=== PATIENT | female | born 1935 | race Caucasian/White ===

== ENCOUNTER 2018-08-11 16:28 | Observation (INO) | payer OTHER ==
--- OUTSIDE RECORDS SUMMARY | 2018-08-11 16:30 | XMS REPORT | Continuity of Care Document ---
:1935 Author Organization Interface Problems Problem Status Onset Classification Date Comments Source Date Reported I67.1 - CEREBRAL Active 02/22/19 [facility] ANEURYSM, 18 [place] NONRUPTURED I67.1 - Active 12/22/19 [facility] "CEREBRAL 16 [place] ANEURYSM, NONRUPTURED" Aneurysm Resolved Problem 05/29/2018 [facility] Bronchitis Resolved Problem 05/29/2018 [facility] Dizziness Resolved Problem 05/29/2018 [facility] Falling Resolved Problem 05/29/2018 [facility] Subarachnoid Resolved Problem 05/29/2018 [facility] hemorrhage [facility] Hypothyroid Resolved Problem 05/29/2018 [facility] Cerebral Active Problem 05/29/2018 [facility] aneurysm [facility] Lower back pain Resolved Problem 05/29/2018 [facility] Lumbar Resolved Problem 05/29/2018 [facility] radiculopathy [facility] 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 [facility] Medications Medication Details Route Status Patient Ordering Order Source Instructions Provider Date Allergies, Adverse Reactions, Alerts Substance Category Reaction Severity Reaction Status Date Comments Source type Reported phenytoin Assertion Drug Active [facility] Immunizations Immunization Date Given Site Status Last Updated Comments Source Results Order Results Value Reference Date Interpretation Comments Source Name Range Brain/ Brain/Ne Patient Name: DIONTE MASTERSON 03/12 - [facility] Neck ck CTA /2017 - [place] CTA : 1935; Age: 82 years y/o Female MR: [id number] Read by: Andrew Mclean MD Dictated Date/time: 03/12/17 11:02 Electronically Signed by: Andrew Mclean MD 03/12/17 11:17 FINAL REPORT Study: Brain/Neck CTA 03/12/2017 9:55 AM [facility] Clinical Indication: - SCHEDULE CTA BRAIN/NECK PRIOR TO MARCH 19, 2017; history of prior aneurysm repair Comparison: CTA of the head from 01/05/2016. CTA of the head and neck from 07/12/2015. TECHNIQUE: Sequential trans-axial images of the head and neck were obtained with a multi-detector helical CT after iodinated contrast administration. Coronal and sagittal reconstructions and were obtain ed, along with 3D post-processing imaging for exam interpretation. CONTRAST: 100 cc of IV Omnipaque contrast material was used for the exam. CT Radiation Dose DLP 1591.90 mGy-cm FINDINGS: CTA NECK: VASCULAR EVALUATION: The origins of the great vessels and visualized upper thoracic aortic arch are unremarkable. The common carotid arteries are widely patent bilaterally. There is minimal atherosclerotic disease of the bilateral carotid bulbs. The internal and external carotid artery origins are widely patent. Th e cervical internal carotid arteries are widely patent. There is no significant stenosis by NASCET criteria. Bilateral cervical segments of the vertebral arteries are widely patent. The source images show no evidence of dissections. Any reported ICA stenosis directly references the distal internal carotid diameter as the denominator for stenosis measurement. NON-VASCULAR STRUCTURES: Degenerative changes of the cervical spine are seen. IMPRESSION: Minimal atherosclerotic disease of the bilateral carotid bulbs. No significant stenosis by NASCET criteria. FINDINGS: CTA HEAD ANTERIOR CIRCULATION: There is only mild atherosclerotic disease of the supraclinoid portions of the bilateral internal carotid arteries. Stable changes of right frontal craniotomy and aneurysm clipping along the right pericallosal branch of the right KENY is seen. There is normal opacification of the vessel distal to the aneurysm clip. No residual or recurrent aneurysm at the site of clipping is seen. 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 The M1 and M2 segments of the middle cerebral arteries and branches are unremarkable. The anterior communicating artery is unremarkable. The posterior communicating arteries are also unremarkable. POSTERIOR CIRCULATION: Bilateral vertebral arteries, basilar artery, superior cerebellar and posterior cerebral arteries are unremarkable. The anterior inferior cerebellar arteries and left posterior inferior cerebellar artery are unremarkable. There is no significant atherosclerotic disease. NON-CONTRAST BRAIN IMAGES: The noncontrast images of the head show no mass- effect or midline shift. There are no intra or extra-axial fluid collections, intraventricular or intraparenchymal hemorrhages. The ventricles and cisterns are normal. Stable changes of right frontal craniotomy and KENY aneurysm clipping are again seen. Bifrontal encephalomalacia is again noted. Chronic microvascular ischemic ch anges are identified. 18 mm intraparenchymal hyperdense lesion in the right frontal lobe is stable. CONTRAST ENHANCED BRAIN IMAGES: The contrast-enhanced images of the head show no abnormally enhancing lesions. If there is further concern, recommend conventional angiography for complete assessment. IMPRESSION: 1. Stable changes of right frontal craniotomy and right KENY aneurysm clipping without residual or recurrent aneurysm. 2. 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 SL: [id number] Brain/ Brain/Ne EXAM: CTA BRAIN 07/11 - [facility] Neck ck CTA /2015 - [place] CTA EXAM: CTA NECK Read by: Ariadna Solano MD Dictated Date/time: 07/15/15 09:10 EXAM: Noncontrast CT brain Electronically Signed by: Ariadna Solano MD 07/15/15 09:32 FINAL REPORT DATE: 07/05/2015 3:53 PM CDT INDICATION: I67.1 Cerebral aneurysm, nonruptured COMPARISON: Outside CT brain 06/30/2015, 11/16/2011. TECHNIQUE: Rapid acquisition spiral CT images of the brain and neck were obtained between the aortic arch and the cranial vertex during intravenous infusion of iodinated contrast for the purposes of CT angiography . 3-D CT angiographic images are created using MIP technique at the acquisition workstation. The source images are also presented for interpretation. 100 mL Visipaque was used. DISCUSSION: Noncontrast CT brain: Aneurysm clipping along the course of the ACAs is redemonstrated. Ovoid hyperdensity in the right anterior frontal lobe within the area of encephalomalacia measuring 1.3 cm in diameter is redemonstrated , increased compared to 2011. No acute intracranial hemorrhage. Microangiopathic changes and generalized parenchymal volume loss are redemonstrated. No mass effect. No acute infarction. Remote right frontal craniotomy changes are redemonstrated. Paranasal sinuses and mastoid air cells are clear. NECK CTA: Common carotid arteries are unremarkable. Carotid bifurcations show no stenosis. Narrowing of the vertebral arteries at the level of C5 secondary to osteophyte. Otherwise, vertebral arteries have a normal course and caliber. BRAIN CTA: Aneurysm clipping along the right pericallosal branch is evident without residual or recurrent aneurysm identified at this site. Normal opacification of the vessel distal to the clip. Fusiform aneurysma l dilatation of a right callosomarginal branch measuring a maximal diameter of 6 mm and extending for a length of approximately 16 mm corresponding to the area of increased density on the noncontrast CT. Right PICA is not well visualized. Otherwise, no proximal occlusion or flow -limiting stenosis is identified intracranially. IMPRESSION: 1. No residual or recurrent aneurysm at the site of right KENY aneurysm clipping. 2. 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 3. Atherosclerosis at the carotid bifurcations without significant stenosis by NASCET criteria. 4. Microangiopathic changes and generalized parenchymal volume loss are redemonstrated. No acute intracranial hemorrhage. (All qualitative and quantitative assessments of carotid bifurcation and proximal internal carotid artery stenosis are made referencing the distal internal carotid artery {NASCET criteria}.) Vital Signs Vital Sign Value Date Comments Source Heart Rate 59 03/19/2017 [facility] Temperature Oral (F) 97 F 03/19/2017 [facility] Systolic (mm Hg) 157 03/19/2017 [facility] Diastolic (mm Hg) 81 03/19/2017 [facility] Weight 73.636 03/19/2017 [facility] BMI Calculated 30.67 03/19/2017 [facility] Height 154.94 cm 03/19/2017 [facility] Encounters Location Location Encounter Encounter Reason Attending ADM DC Status Source Details Type Number For Provider Date Date Visit Outpatient [id number] [facility] 07/04 [facility] [place] Outpatient [id number] [facility] 07/11 [facility] [place] Outpatient [id number] [facility] 07/11 [facility] [place] [facility] Out[facility] Diag [id number] [facility] 07/11 07/12 [facility] Outpatient [id number] AS[facility] 03/27 [facility] [facility] [id number] MICHAEL 03/07 [facility] [place] Out[facility] [id number] MICHAEL 03/07 [facility] [place] Outpatient [id number] AS[facility] 03/19 [facility] [place] [facility] Outpatient [id number] Michael 03/19 03/20 [facility] [id number] MICHAEL 11/14 [facility] Outpatient [id number] ASIF 05/27 [facility] Ambulatory [id number] Michael 05/27 05/27 [facility] Outpatient [id number] MICHAEL 11/11 Active [facility] Procedures Procedure Code Date Perfomer Comments Source Acid reflux [id number] [facility] Cataracts [id number] [facility] Craniotomy [id number] [facility] Cystocele [id number] [facility] H/O: hysterectomy [id number] [facility] Hip replacement [id number] [facility] Hx of knee surgery [id number] [facility] Acid reflux [id number] [facility] Cataracts [id number] [facility] Craniotomy [id number] [facility] Cystocele [id number] [facility] H/O: hysterectomy [id number] [facility] Hip replacement [id number] [facility] Hx of knee surgery [id number] [facility]
--- OUTSIDE RECORDS SUMMARY | 2018-08-11 16:30 | XMS REPORT | Summary of Care ---
:1935 Author Organization [facility] [place] [facility] [address] [place] [address] [place] [id number]- Encounter HQ Sindhuntr_kaylyn(FIN) [id number] Date(s): 05/27/18 - 05/27/18 [facility] [address] [place] [address] [place] [id number]- Attending Physician: Seng Burleson MD Referring Physician: Sammy Balbuena MD Vital Signs No data available for this section Problem List Condition Effective Dates Status Health Status Informant Aneurysm(Confirmed) Resolved Bronchitis(Confirmed) Resolved Dizziness(Confirmed) Resolved Falling(Confirmed) Resolved Subarachnoid hemorrhage(Confirmed) Resolved Hypothyroid(Confirmed) Resolved Cerebral aneurysm(Confirmed) Active Lower back pain(Confirmed) Resolved Lumbar radiculopathy(Confirmed) Resolved Postherpetic neuralgia(Confirmed) Active Allergies, Adverse Reactions, Alerts Substance Reaction Severity Status phenytoin Active Medications No data available for this section Results No data available for this section Immunizations No data available for this section Procedures Procedure Date Related Diagnosis Body Site Status Acid reflux Completed Cataracts Completed Craniotomy Completed Cystocele Completed H/O: hysterectomy Completed Hip replacement Completed Hx of knee surgery Completed Social History Social History Type Response Smoking Status Never smoker; Type: Cigarettes; Previous treatment: None; Ready to change: No; Concerns about tobacco use in household: No; Exposure to Tobacco Smoke None; Cigarette Smoking Last 365 Days No; Reg Smoking Cessation Counseling No entered on: 11/14/17 Assessment and Plan No data available for this section
[2018-08-11 17:04] LABS: Urine Blood TRACE (NEG); Urine Glucose NEGATIVE (NEG); Urine Protein NEGATIVE (NEG); Urine Specific Gravity 1.015 (1.005-1.030); Urine pH 8.5 (5.0-7.0)
[2018-08-11 17:16] LABS: Absolute Lymphocytes (CBC) 1.5 K/uL (0.7-4.9); Basophils % 0.8 % (0-1.3); Eosinophils % 3.5 % (0-4.4); Hematocrit 43.5 % (36.0-45.0); Lymphocytes % 29.4 % (15.3-44.8); MPV 9.9 fL (7.6-11.3); Monocytes % 10.6 % (3.3-12.3); RBC Red Blood Cell Count 4.58 M/uL (3.86-4.86)
[2018-08-11 17:25] LABS: Urine Bacteria >50 /HPF (<20); Urine Culture Reflex Order REFLEXED; Urine RBC <5 /HPF (NONE SEEN)
[2018-08-11 17:29] LABS: Potassium 3.7 mmol/L (3.5-5.1)
--- NOTE | 2018-08-11 17:41 | RAD REPORT ---
EXAM DESCRIPTION: CT - Head Brain Wo Cont - 08/11/2018 5:21 pm CLINICAL HISTORY: Stroke-like symptoms, left arm and leg weakness, history of cerebral aneurysm COMPARISON: CT imaging December 2015, June 2015 and October 2011 TECHNIQUE: Axial 5 mm thick images of the head were obtained without IV contrast. All CT scans are performed using dose optimization technique as appropriate and may include automated exposure control or mA/KV adjustment according to patient size. FINDINGS: No acute intracranial hemorrhage. Underlying moderate severity chronic ischemic changes ar e present. Prominent atrophy changes are present. Ventricles are in proportion to the amount of volum e loss. No midline shift. Aneurysm clips are again noted in the anterior interhemispheric region. In the anterior superior right frontal lobe there is a 2.6 centimeter rounded mass. This is in close pro ximity to the aneurysm clips. The mass is superior and to the right of midline. Prior diagnostic work ups indicate this is a partially thrombosed aneurysm. The mass enhances similar to the arterial tree in there is a large vessel associated with this mass on prior imaging. Since 2016 the mass has enlarg ed. The mass is 2.6 cm currently with a 1.6 centimeter prior measurement. The hyperintensity along th e periphery is believed to be mineralization. An acute hemorrhagic component is not suspected. Mastoid air cells and visualized portions of the paranasal sinuses are clear. No acute bony findings. IMPRESSION: A 2.6 centimeter mass in the right frontal lobe is present. The mass has enlarged from 1 .6 cm in 2016. Mass has previously been shown to be a partially thrombosed aneurysm. Acute hemorrhage from the aneu rysm is not currently suspected. Patient has moderate chronic ischemic change and advanced atrophy. Ventricles are in proportion to vo lume loss.
[2018-08-11] MEDS ORDERED: CEFTRIAXONE 1 GM/NS 50 ML 1 GM/50 ML BAG IV SCH (18:00)
--- NOTE | 2018-08-11 18:23 | P.HP ---
Certification for Inpatient Patient admitted to: Inpatient With expected LOS: >2 Midnights Practitioner: I am a practitioner with admitting privileges, knowledge of patient current condition, hospital course, and medical plan of care. Services: Services provided to patient in accordance with Admission requirements found in Title 42 Section 412.3 of the Code of Federal Regulations Patient History Date of Service: 08/11/18 Reason for admission: Left sided weakness History of Present Illness: This is a 83 yr old female with pmh of HTN, brain aneursym who presented with left sided weakness. Per patient, symptoms of left sided upper and lower extrmeity weakness started this afternoon and had resolved prior to coming to the ER. patient thought she may be having a mini stroke and therefore came to the ED. Patient has no prior CVA history but does have a history of brain aneursym. In the ER, she was hemodynamically stable, back to baseline and in no acute distress. CT scan of the head showed brain aneurysm had enlarged from 2016. Labs were fairly unremarkable. UA was positive for 3+ leukocyte esterase. She received IV antibiotics in the ED for suspected UTI. At the time of my exam, she was AAOx3, in no acute distress, hemodynamically stable and back to baseline. Allergies phenytoin sodium [From Dilantin] Allergy (Verified 12/02/17 10:19) Anaphylaxis phenytoin sodium extended [From Dilantin] Allergy (Verified 12/02/17 10:19) Anaphylaxis Home Medications: Atenolol [Tenormin*] 50 mg PO DAILY 03/10/14 Levothyroxine Sodium [Synthroid] 25 mcg PO DAILY 03/10/14 Aspirin [Adult Aspirin] 1 tab PO DAILY 12/02/17 Gabapentin 1 tab PO QID 12/02/17 - Past Medical/Surgical History Diabetic: No -: Brain aneurysm -: Hypothyroidism -: COPD -: History of ruptured brain aneurysm -: Hysterectomy -: Tonsillectomy -: Bilateral knee surgery -: Cystocele/rectocele -: R frontal crainiotomy with clipping of aneursym 1981 Psychosocial/ Personal History: She is . Her is currently in the senior care due to dementia. She has 2 children. 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 - Family History Mother -: Hypertension - Social History Alcohol use: No CD- Drugs: No Caffeine use: Yes Review of Systems 10-point ROS is otherwise unremarkable Physical Examination - Physical Exam General: Alert, In no apparent distress, Oriented x3 HEENT: Atraumatic, PERRLA, Mucous membr. moist/pink, EOMI, Sclerae nonicteric Neck: Supple, 2+ carotid pulse no bruit, No LAD, Without JVD or thyroid abnormality Respiratory: Clear to auscultation bilaterally, Normal air movement Cardiovascular: Regular rate/rhythm, Normal S1 S2 Gastrointestinal: Normal bowel sounds, No tenderness Musculoskeletal: No tenderness Integumentary: No rashes Neurological: Normal gait, Normal speech, Normal strength at 5/5 x4 extr, Normal tone, Normal affect Lymphatics: No axilla or inguinal lymphadenopathy - Studies Laboratory Data (last 24 hrs) 08/11/18 17:08: Sodium 139, Potassium 3.7, BUN 12, Creatinine 0.77, Glucose 97 08/11/18 17:08: WBC 5.0, Hgb 14.2, Hct 43.5, Plt Count 178 Assessment and Plan - Problems (Diagnosis) (1) Left-sided weakness Current Visit: Yes Status: Acute Plan: DDx include TIA vs aneursym enlargement vs infectious - Dr. Balbuena, patient's primary neurologist consulted. Awaiting recomendations at this time. - Unable to do MRI due to aneursym clippings - CTA of head and neck ordered, pending. - Tele monitoring (2) TIA (transient ischemic attack) Current Visit: Yes Status: Suspected (3) Urinary tract infection Current Visit: Yes Status: Suspected Plan: Continue antibiotics, pending urine culture Qualifiers: Urinary tract infection type: acute cystitis Hematuria presence: without hematuria Qualified Code(s): N30.00 - Acute cystitis without hematuria (4) Brain aneurysm Current Visit: No Status: Chronic Plan: Aneurysm seems to have enlarged from prior imaging. Pending neurology evaluation. (5) COPD (chronic obstructive pulmonary disease) Current Visit: No Status: Chronic Plan: Continue home medications Qualifiers: COPD type: chronic bronchitis Chronic bronchitis type: unspecified Qualified Code(s): J42 - Unspecified chronic bronchitis (6) Hypertension Current Visit: No Status: Chronic Plan: stable, continue home medications. Strict BP monitoring Qualifiers: Hypertension type: essential hypertension Qualified Code(s): I10 - Essential (primary) hypertension (7) Hypothyroidism Current Visit: No Status: Chronic Plan: Stable, restart home medications. Qualifiers: - Plan Admit to floor with tele. Pending Neurology evaluation and CTA head/neck - Advance Directives Does patient have a Living Will: Yes Does patient have a Durable POA for Healthcare: No
--- NOTE | 2018-08-11 18:25 | ER ---
Nurse's Notes [facility] Name: Radha Parada Age: 83 yrs Sex: Female : 1935 Arrival Date: 08/11/2018 Time: 16:30 Bed 8 Private MD: Diagnosis: Weakness;Urinary tract infection, site not specified;Cerebral aneurysm, nonruptured Presentation: 08/11 16:30 Presenting complaint: Patient states: around 12:30 noon today, i felt weak on my L leg hj and L arm, im afraid im having mini stroke; reports hx of cerebral aneurysm; denies N/V; on triage no drift on all extremities, A\T\O x 4, no facial droop;. Transition of care: patient was not received from another setting of care. Onset of symptoms was August 11, 2018 at 12:30. Risk Assessment: Do you want to hurt yourself or someone else? Patient reports no desire to harm self or others. Initial Sepsis Screen: Does the patient meet any 2 criteria? No. Patient's initial sepsis screen is negative. Does the patient have a suspected source of infection? No. Patient's initial sepsis screen is negative. Care prior to arrival: None. 16:30 Method Of Arrival: Ambulatory 16:30 Acuity: DEBORAH 3 hj Historical: - Allergies: 16:34 Dilantin; hj - PMHx: 16:34 Aneurysm; hj - PSHx: 16:34 Hysterectomy; aneursym surgery; reflux surgery; hip replacement; hj - Immunization history:: Adult Immunizations up to date. - Social history:: Smoking status: Patient/guardian denies using tobacco. - Ebola Screening: : No symptoms or risks identified at this time. - Family history:: not pertinent. - Hospitalizations: : No recent hospitalization is reported. Screenin:00 Abuse screen: Denies threats or abuse. Denies injuries from another. Nutritional hb screening: No deficits noted. Tuberculosis screening: No symptoms or risk factors identified. Fall Risk None identified. Assessment: 16:36 VAN Scoring: Arm Drift: Patients demonstrates NO arm weakness. Patient is VAN Negative. hj Visual Disturbance: No visual disturbance noted. Aphasia: No aphasia noted. Neglect: No neglect noted. 16:50 Reassessment: at bedside assessing pt at this time. sg 16:50 Reassessment: EKG at bedside at this time. sg 17:00 General: Appears in no apparent distress. Behavior is calm, cooperative. Pain: Denies hb pain. Neuro: Level of Consciousness is awake, alert, obeys commands, Oriented to person, place, time, situation, Filler Sifter Helper are equal bilaterally Moves all extremities. Gait is steady, Speech is normal, Facial symmetry appears normal, Pupils are PERRLA, Intact. Cardiovascular: Capillary refill < 3 seconds Patient's skin is warm and dry. Respiratory: Airway is patent Respiratory effort is even, unlabored, Respiratory pattern is regular, symmetrical, Breath sounds are clear bilaterally. GI: No signs and/or symptoms were reported involving the gastrointestinal system. : No signs and/or symptoms were reported regarding the genitourinary system. EENT: No signs and/or symptoms were reported regarding the EENT system. Derm: Skin is intact, is healthy with good turgor. Musculoskeletal: No signs and/or symptoms reported regarding the musculoskeletal system. 18:00 Reassessment: Patient appears in no apparent distress at this time. Patient and/or hb family updated on plan of care and expected duration. Pain level reassessed. Patient is alert, oriented x 3, equal unlabored respirations, skin warm/dry/pink. 19:00 Reassessment: Patient appears in no apparent distress at this time. Patient and/or hb family updated on plan of care and expected duration. Pain level reassessed. Patient is alert, oriented x 3, equal unlabored respirations, skin warm/dry/pink. 19:01 Reassessment: Attempted to call report to floor, no answer. Day charge nurse Krysta COLE and night charge nurse KELSEY notified. 19:19 Reassessment: Attempted to call report to floor, receiving nurse unavailable at this time. Vital Signs: 16:35 BP 151 / 60; Pulse 55; Resp 18; Temp 98.5(O); Pulse Ox 98% on R/A; Weight 68.04 kg; hj Height 5 ft. 1 in. (154.94 cm); Pain 0/10; 18:30 BP 148 / 59; Pulse 63; Resp 16; Temp 98.1; Pulse Ox 100% on R/A; Pain 0/10; hb 16:35 Body Mass Index 28.34 (68.04 kg, 154.94 cm) ED Course: 16:30 Patient arrived in ED. mr 16:33 Triage completed. hj 16:36 Arm band placed on right wrist. hj 16:39 Marc Foster MD is Attending Physician. rn 16:57 Indigo Underwood, RN is Primary Nurse. hb 17:00 Patient has correct armband on for positive identification. Placed in gown. Bed in low hb position. Call light in reach. Side rails up X 1. 17:06 EKG done, by environmental technical officer. reviewed by Marc Foster MD. 3 17:12 Inserted saline lock: 20 gauge in right antecubital area, using aseptic technique. hb Blood collected. 17:21 CT Head Brain wo Cont In Process Unspecified. EDMS 18:06 CT completed. Patient tolerated procedure well. Patient moved to CT. Patient moved back va from CT. 18:23 Daryl Thrasher MD is Hospitalizing Provider. rn 19:15 No provider procedures requiring assistance completed. Patient admitted, IV remains in hb place. Administered Medications: 18:53 Drug: Rocephin - (cefTRIAXone) 1 grams Route: IVPB; Infused Over: 30 mins; Site: right hb antecubital; 19:16 Follow up: Response: No adverse reaction; IV Intake: 50ml hb 19:34 Follow up: IV Status: Completed infusion ak1 Intake: 19:16 IV: 50ml; Total: 50ml. hb Outcome: 18:24 Decision to Hospitalize by Provider. rn 19:15 Admitted to Tele hb 19:15 Condition: stable 19:15 Instructed on the need for admit, Demonstrated understanding of instructions. 19:33 Admitted to Tele accompanied by tech, via stretcher, room 214, with chart, Report ak1 called to Tamara COLE 19:54 Patient left the ED. ak1 Signatures: Dispatcher [employer] EDMS Derrick Madrid RN KELSEY sullivan SamuelRocio mr Marc Foster MD MD rn Krenek, Amber, RN RN ak1 Dav Wing RN RN hj Baxter, Heather, RN John Dinh Shakira 3
--- NOTE | 2018-08-11 18:25 | EDPHYS ---
Physician Documentation [facility] Name: Radha Parada Age: 83 yrs Sex: Female : 1935 Arrival Date: 08/11/2018 Time: 16:30 Bed 8 Private MD: ED Physician Marc Foster HPI: 08/11 18:19 This 83 yrs old Female presents to ER via Ambulatory with complaints of rn Weakness. 18:19 The patient presents to the emergency department with weakness of the left upper rn extremity, left lower extremity. Onset: The symptoms/episode began/occurred at 12:30. Associated signs and symptoms: Pertinent positives: weakness, Pertinent negatives: altered mental status, fever, paresthesias, seizure, syncope, blurred vision, double vision, visual field changes, loss of vision. Severity of symptoms: At their worst the symptoms were moderate in the emergency department the symptoms have improved. Current symptoms: Currently, the patient is not experiencing any symptoms. The patient has not experienced similar symptoms in the past. REports around 12:30 today didn't feel right, noted LUE and LLE weakness, trouble walking, has now resolved, also reports generalized weakness and fatigue. No headache. No head trauma. . Historical: - Allergies: 16:34 Dilantin; hj - PMHx: 16:34 Aneurysm; hj - PSHx: 16:34 Hysterectomy; aneursym surgery; reflux surgery; hip replacement; hj - Immunization history:: Adult Immunizations up to date. - Social history:: Smoking status: Patient/guardian denies using tobacco. - Ebola Screening: : No symptoms or risks identified at this time. - Family history:: not pertinent. - Hospitalizations: : No recent hospitalization is reported. ROS: 18:19 Constitutional: Negative for fever, chills, and weight loss, Eyes: Negative for injury, rn pain, redness, and discharge, Neck: Negative for injury, pain, and swelling, Cardiovascular: Negative for chest pain, palpitations, and edema, Respiratory: Negative for shortness of breath, cough, wheezing, and pleuritic chest pain, Abdomen/GI: Negative for abdominal pain, nausea, vomiting, diarrhea, and constipation, MS/Extremity: Negative for injury and deformity, Skin: Negative for injury, rash, and discoloration, Neuro: + LUE/LLE weakness, negative for seizure or paresthesias. Exam: 18:19 Constitutional: This is a well developed, well nourished patient who is awake, alert, rn and in no acute distress. Head/Face: Normocephalic, atraumatic. ENT: MMM Cardiovascular: Regular rate and rhythm. No pulse deficits. Respiratory: Lungs have equal breath sounds bilaterally, clear to auscultation. No increased work of breathing, no retractions or nasal flaring. Abdomen/GI: soft, non-tender Skin: Warm, dry with normal turgor. Normal color with no rashes, no lesions, and no evidence of cellulitis. MS/ Extremity: Pulses equal, no cyanosis. Neurovascular intact. Full, normal range of motion. Equal circumference. Neuro: Awake and alert, GCS 15, oriented to person, place, time, and situation. Cranial nerves II-XII grossly intact. Motor strength 5/5 in all extremities. Sensory grossly intact. Cerebellar exam normal. Normal gait. Vital Signs: 16:35 BP 151 / 60; Pulse 55; Resp 18; Temp 98.5(O); Pulse Ox 98% on R/A; Weight 68.04 kg; hj Height 5 ft. 1 in. (154.94 cm); Pain 0/10; 18:30 BP 148 / 59; Pulse 63; Resp 16; Temp 98.1; Pulse Ox 100% on R/A; Pain 0/10; hb 16:35 Body Mass Index 28.34 (68.04 kg, 154.94 cm) hj MDM: 16:39 Patient medically screened. rn 18:19 Data reviewed: vital signs, nurses notes, lab test result(s), EKG, radiologic studies, rn CT scan, and as a result, I will admit patient. Counseling: I had a detailed discussion with the patient and/or guardian regarding: the historical points, exam findings, and any diagnostic results supporting the discharge/admit diagnosis, lab results, radiology results, the need for further work-up and treatment in the hospital. Response to treatment: the patient's symptoms have markedly improved after treatment, and as a result, I will admit patient. Admission orders: after a detailed discussion of the patient's condition and case, the admit orders are written by me. ED course: Pt with UTI likely contributing to not feeling right and generalized weakness, slight increase in aneurysm without bleeding, spoke with Dr. Balbuena who agrees to see patient as consult, admitted to Dr. Thrasher. Pending CTA head and neck. . 08/11 16:44 Order name: CBC with Diff; Complete Time: 17:46 rn 08/11 16:44 Order name: Basic Metabolic Panel; Complete Time: 17:46 rn 08/11 16:44 Order name: Urine Microscopic Only; Complete Time: 17:46 rn 08/11 16:56 Order name: Urine Dipstick--Ancillary (enter results); Complete Time: 17:46 bd 08/11 17:28 Order name: Urine Culture [facility] 08/11 16:44 Order name: CT Head Brain wo Cont; Complete Time: 17:46 rn 08/11 16:44 Order name: IV Start; Complete Time: 17:05 rn 08/11 16:44 Order name: Urine Dipstick-Ancillary (obtain specimen); Complete Time: 16:57 rn 08/11 16:44 Order name: EKG; Complete Time: 16:45 rn 08/11 17:49 Order name: CT Head Angio 08/11 17:49 Order name: CT Neck Angio 08/11 18:13 Order name: CONS Physician Consult [facility] 08/11 16:44 Order name: EKG - Nurse/Tech; Complete Time: 17:05 rn Administered Medications: 18:53 Drug: Rocephin - (cefTRIAXone) 1 grams Route: IVPB; Infused Over: 30 mins; Site: right hb antecubital; 19:16 Follow up: Response: No adverse reaction; IV Intake: 50ml hb 19:34 Follow up: IV Status: Completed infusion ak1 Disposition: 08/11/18 18:24 Hospitalization ordered by Daryl Thrasher for Inpatient Admission. Preliminary diagnosis are Weakness, Urinary tract infection, site not specified, Cerebral aneurysm, nonruptured. - Bed requested for Telemetry/MedSurg (Inpatient). - Status is Inpatient Admission. ak1 - Condition is Stable. - Problem is new. - Symptoms have improved. UTI on Admission? Yes Signatures: Dispatcher [employer] [facility] Farida Norton RN RN dw Nieto, Roman, MD MD rn Krenek, Amber, RN RN ak1 Dav Wing RN RN Indigo Underwood RN RN Corrections: (The following items were deleted from the chart) 18:14 17:50 Urine Culture+BA.LAB.BRZ ordered. EDMS EDMS 18:35 18:24 Hospitalization Ordered by Daryl Thrasher MD for Inpatient Admission. Preliminary dw diagnosis is Weakness; Urinary tract infection, site not specified; Cerebral aneurysm, nonruptured. Bed requested for Telemetry/MedSurg (Inpatient). Status is Inpatient Admission. Condition is Stable. Problem is new. Symptoms have improved. UTI on Admission? Yes. rn 19:54 18:35 08/11/2018 18:24 Hospitalization Ordered by Daryl Thrasher MD for Inpatient ak1 Admission. Preliminary diagnosis is Weakness; Urinary tract infection, site not specified; Cerebral aneurysm, nonruptured. Bed requested for Telemetry/MedSurg (Inpatient). Status is Inpatient Admission. Condition is Stable. Problem is new. Symptoms have improved. UTI on Admission? Yes. dw
[2018-08-11] MEDS ORDERED: CEFTRIAXONE/SWI 1gm 1 GM/10 ML SYR ONE (19:12)
[2018-08-11] MEDS ORDERED: ONDANSETRON 4 MG/2 ML VIAL IV PRN (20:12)
[2018-08-11 21:05] VITALS: BMI 28.3
[2018-08-12 05:58] LABS: Absolute Lymphocytes (CBC) 1.5 K/uL (0.7-4.9); Basophils % 0.8 % (0-1.3); Eosinophils % 4.2 % (0-4.4); Hematocrit 41.5 % (36.0-45.0); Lymphocytes % 27.3 % (15.3-44.8); MPV 10.5 fL (7.6-11.3); Monocytes % 14.7 % (3.3-12.3); RBC Red Blood Cell Count 4.41 M/uL (3.86-4.86)
[2018-08-12 06:18] LABS: Albumin 3.1 g/dL (3.4-5.0); Bilirubin Total 0.3 mg/dL (0.2-1.0); Magnesium 2.4 mg/dL (1.8-2.4); Phosphorus 4.2 mg/dL (2.5-4.9); Protein, Total 6.4 g/dL (6.4-8.2)
[2018-08-12] MEDS: CEFTRIAXONE/SWI 1gm 1 GM/10 ML SYR IVP SCH ×2 (06:23→17:18)
[2018-08-12] MEDS ORDERED: HOME MED 1 EA UNK (Budesonide/Formoterol Fumarate [Symbicort 160-4.5 Mcg Inhaler] 2 PUFF) IH SCH (10:20)
--- NOTE | 2018-08-12 12:07 | RAD REPORT ---
EXAM DESCRIPTION: CT - Head angio - 08/12/2018 1:19 am CLINICAL HISTORY: 83 years Female weakness, TIA COMPARISON: CT brain study from earlier in the day. No previous CTA or MRA studies are available for comparison. TECHNIQUE: Contiguous axial images obtained through the head and neck during the infusion of IV cont rast. Reformatted images obtained. 3-D MIP reformatted images obtained. NASCET criteria utilized fo r the evaluation of any stenotic lesions. This exam was performed according to our department optimization program which includes automated exp osure control, adjustment of the mA and/or kv according to patient size and/or use of iterative recon struction technique. FINDINGS: There are changes from previous right frontal craniotomy with aneurysm clips visualized al valentino the area of the genu of the corpus callosum. The mass lesion in the right frontal region was bett er visualized on the previous head CT study. Mild scarring at the lung apices. Degenerative changes in the spine. The aortic arch and great vessels are incompletely visualized. The visualized portions appear unremar kable. The bilateral vertebral arteries and basilar artery appear widely patent. A portion of the proximal right common carotid artery is not visualized secondary to artifact from ad jacent densely enhanced venous structures. The bilateral common and internal carotid arteries otherwi se appear widely patent. Within the area of the lesion visualized on the previous head CT study, there is an enlarged and some what irregular vascular structure which appears to extend from an occluded right pericallosal artery into a more distal right anterior cerebral artery branch. This likely represents a bypass graft. No d efinite aneurysm is identified. MRI may be helpful to further evaluate the lesion in the right fronta l lobe. IMPRESSION: There are changes from previous right frontal craniotomy with aneurysm clips visualized along the area of the genu of the corpus callosum. 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 There is an irregular vascul ar structure extending from the area of the occlusion to a more distal right anterior cerebral artery branch which likely represents a bypass graft. No definite aneurysm is identified on this study. MRI may be helpful to further evaluate the lesion in the right frontal lobe. Electronically signed by: Mike Arenas MD 08/11/2018 7:11 PM CDT Due to temporary technical issues with the PACS/Fluency reporting system, reports are being signed by the in house radiologist as a courtesy to ensure prompt reporting. The interpreting radiologist is f ully responsible for the content of the report.
--- NOTE | 2018-08-12 14:51 | EKG ---
Test Date: 2018-08-11 Test Time: 17:00:24 [employer] Mer[employer]: BRANDT MEASUREMENT RESULTS: Intervals: Rate: 57 ND: 222 QRSD: 78 QT: 408 QTc: 397 [place]: P: 61 ND: 222 QRS: 37 T: 46 INTERPRETIVE STATEMENTS: Sinus bradycardia with sinus arrhythmia with 1st degree AV block Cannot rule out Anterior infarct, age undetermined Abnormal ECG Compared to ECG 01/04/2016 11:51:29 First degree AV block now present Myocardial infarct finding now present Sinus rhythm no longer present Atrial premature complex(es) no longer present Electronically Signed On 08-12-18 14:47:32 CDT by Tani Ervin
[2018-08-12] MEDS ORDERED: GABAPENTIN 300 MG CAP PO SCH ×2 (17:00→21:00)
[2018-08-12 17:04] VITALS: BP 127/73; TEMP 97.7
--- NOTE | 2018-08-12 20:52 | P.DS ---
Discharge Date: 08/12/18 Disposition: DC HOME/HOME HEALTH CARE Discharge Condition: GOOD Reason for Admission: Left sided weakness Consultations: NEUROLOGY Brief History of Present Illness: PATIENT IS AN 83-YEAR-OLD FEMALE CAME INTO HOSPITAL WITH NUMBNESS ON 1 SIDE OF HER BODY. SHE WAS CONFUSED WELL. INITIALLY THEY WERE CONCERNED THAT SHE MAY HAVE HAD A STROKE. SHE WAS ADMITTED FOR FURTHER WORKUP. IN THE ER WORKUP REVEALED THAT SHE HAD A URINARY TRACT INFECTION. SHE WAS FELT TO HAVE ENCEPHALOPATHY. MRI WAS ORDERED FOR FURTHER WORKUP. Hospital Course: MRI DID NOT REVEAL ANY INDICATION OF AN ACUTE INFARCT. IT WAS FELT PATIENT NEUROLOGIC CHANGES WERE SECONDARY TO A URINARY TRACT INFECTION. SHE WAS SEEN BY NEUROLOGY. PATIENT WAS ADVISED TO FOLLOW UP AN OUTPATIENT WITH PCP IN 1- 2 WEEKS WELL A NEUROLOGIST IN 1-2 WEEKS. CONTINUE ANTIBIOTICS AT DISCHARGE. Vital Signs/Physical Exam: Temp Pulse Resp BP Pulse Ox 97.7 F 55 18 127/73 95 08/12/18 16:00 08/12/18 16:00 08/12/18 16:00 08/12/18 16:00 08/12/18 16:00 General: Alert, In no apparent distress, Oriented x3 Laboratory Data at Discharge: WBC 5.6 K/uL (4.3-10.9) 08/12/18 05:26 Hgb 13.8 g/dL (12.0-15.0) 08/12/18 05:26 Hct 41.5 % (36.0-45.0) 08/12/18 05:26 Plt Count 179 K/uL (152-406) 08/12/18 05:26 Sodium 140 mmol/L (136-145) 08/12/18 05:26 Potassium 4.0 mmol/L (3.5-5.1) 08/12/18 05:26 BUN 11 mg/dL (7-18) 08/12/18 05:26 Creatinine 0.77 mg/dL (0.55-1.3) 08/12/18 05:26 Glucose 89 mg/dL (74-106) 08/12/18 05:26 Phosphorus 4.2 mg/dL (2.5-4.9) 08/12/18 05:26 Magnesium 2.4 mg/dL (1.8-2.4) 08/12/18 05:26 Total Bilirubin 0.3 mg/dL (0.2-1.0) 08/12/18 05:26 AST 16 U/L (15-37) 08/12/18 05:26 ALT 17 U/L (12-78) 08/12/18 05:26 Alkaline Phosphatase 68 U/L (45-117) 08/12/18 05:26 Triglycerides 113 mg/dL (<150) 08/12/18 05:26 Cholesterol 160 mg/dL (<200) 08/12/18 05:26 HDL Cholesterol 48 mg/dL (40-60) 08/12/18 05:26 Cholesterol/HDL Ratio 3.33 08/12/18 05:26 Home Medications: Atenolol [Tenormin*] 50 mg PO DAILY 08/13/18 Gabapentin 300 mg PO DAILY 08/13/18 Montelukast [Singulair*] 10 mg PO DAILY 08/13/18 Meropenem [Merrem 500 MG/100 ML NS IVPB] 500 mg IV Q8H 14 Days #1 bag 08/14/18 Patient Discharge Instructions: OK TO DC IV AND DC HOME. FOLLOW-UP WITH DR. RAYA IN 1-2 WEESK. FOLLOW-UP WITH NEUROLOGY IN 1-[address] SHERMAN AT IF ANY QUESTIONS REGARDING HOSPITAL STAY- PLEASE PLEASE CALL IN 24- 48 HOURS TO GO OVER CULTURE RESULTS. RETURN TO THE ER IF SYMPTOMS WORSESN. URINE CULTURES SHOULD BE BACK IN 48-72 HOURS SO PLEASE CONTACT YOUR PCP OR DR. SHERMAN TO CODIE CULTURE RESULTS AT THAT TIME TO MAKE SURE APPROPRIATE ANTIBIOTICS ARE BEING USED Diet: AHA Activity: Fall precautions Followup: Andrew Raya MD [Primary Care Provider] - (FOLLOW UP 1-2 WEEKS) Sammy Balbuena MD [ACTIVE - CAN ADMIT] - (Follow up in 1 month ) Time spent managing pt's care (in minutes): 25
[2018-08-12 21:29] VITALS: O2SAT 96
--- NOTE | 2018-08-13 01:19 | CON ---
Date of Consultation: 08/12/2018 Reason: Possible TIA. 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 It was imaged several times here and in [place], is actually found to be smaller on s erial imaging and no intervention was really recommended from Neurosurgery at that point to the right callosal marginal branch. Yesterday, she had an episode where she felt a little off and then she hanson d some clumsiness and weakness of the left leg. She fell at home, [facility] demonstrated the hyperintensity in the medial right frontal lobe, which is not aneurysmal and it has been there for quite some time, it is marginally bigger. There is a vessel that arches ar ound the right frontal lobe lesion, possibly making it look a little larger than it actually is, so i t was all very concerning, the new neurologic symptoms, the hyperintensity with history of aneurysm, so she was admitted overnight. Since being admitted, she had a CT angiogram that does not really def initively demonstrate any new finding. Pericallosal artery is occluded from the clip. There is a va scular structure, which I think is the fusiform aneurysm proper, and as noted, no intervention has be en recommended with regard to that abnormality. She is back to baseline. She was felt to have a UTI as well. Labs reveal no real abnormality other than the UTI. LDL is 89. The patient is 83 years o ld. Consult was requested. Past Medical History: As alluded to hypothyroidism as well as hypertension. Medications: Aspirin, atenolol, gabapentin, Synthroid, Singulair, Zofran. Allergies: DILANTIN. Social History: Never smoked. Normally independent with activities of daily living. Family History: Noncontributory. Review of Systems: General: Good health. Eyes: Negative. Ears, Nose, Throat: No speech difficulties. Cardiovascular: Hypertension. Pulmonary: Negative. GI: Negative. : UTI. Musculoskeletal: As alluded to. Neurologic: Leg weakness, now resolved. Endocrine: Hypothyroidism. Physical Examination: Vital Signs: 97.7, 55, 18, 127/73. General: A pleasant lady, lying in bed, in no distress. Awake, alert, oriented to time, person, tere ce, and situation. HEENT: Pupils equal, round, reactive. Ocular motion full without nystagmus. Visual kelley full. F acial strength and sensation are normal. Tongue protrudes evenly. Soft palate elevates symmetricall y bilaterally. Extremities: Strength full. Sensation intact. Reflexes 2/4 symmetric. Toes are downgoing. Cerebe llar exam demonstrates no ataxia. Pertinent Labs: CT angio demonstrates patent carotids as well. Impression: 1.Possible transient ischemic attack. 2.Prior aneurysm with residual fusiform aneurysm, possibly being interpreted as the bypass graft on the CTA. Plan: I would not make any significant medication changes. LDL is greater than 70, but the patient is over 75, and it is not certainly classic transient ischemic attack type history. It may all just be related to the urinary tract infection. I think she is safe to be discharged and I do not even kn ow that I would continue to repeat the imaging to monitor generating a significant amount of anxiety, and there is no real intervention for a fusiform aneurysm proper other than medical management. She can follow up with me in the office in a month. Thank you for the consult. DONG Voice ID: [id number] Report ID: [id number]
--- NOTE | 2018-08-13 01:54 | DS ---
Date of Discharge: 08/12/2018 Discharge Diagnoses: 1.Left-sided weakness, resolved. 2.TIA. 3.Acute cystitis without hematuria secondary to gram-negative rods. 4.Brain aneurysm, status post clipping. Per CT scan, aneurysm has enlarged by 1 cm. No acute throm bosis. 5.COPD, chronic bronchitis. 6.Essential hypertension, stable. 7.Hypothyroidism. Hospital Course: The patient is an 83-year-old female with past medical history of hypertension, bra in aneurysm with clipping, comes in with left-sided weakness. The patient felt that she was having a mini-stroke, therefore came into the ER. CT scan of the brain was done, which showed aneurysm that is enlarged from 2016 by 1 cm for a total size of 2.6 cm. This is compared to 2016. She was found t o have UTI, which is being treated with Rocephin. Cultures are growing gram-negative rods. The carlos ent's symptoms had resolved. She was back to her baseline. The patient will be seen by Neurology, Daniel Balbuena. CTA of the head and neck was done, which shows no definite aneurysm on the study. MRI may be helpful to further evaluate lesion in the right frontal lobe. Changes from previous right fronta l craniotomy with aneurysm clips visualized along the area of the genu of the corpus callosum, occlus ion of the right pericallosal artery in the region, most likely related to the previous surgical proc edure, irregular vascular structures extending from the area of the occlusion to more distal right an terior cerebral artery branch which likely represents a bypass graft. Head CTA showed same results a s mentioned above. The patient is doing well. She was able to ambulate, working well with PT. The patient was then cleared for discharge and was sent home in a stable condition. Activity: Ambulate with assist. The patient uses a cane for ambulation. Medications: As per medication reconciliation list. Followup: Follow up with primary care physician in 2-3 days. Follow up with neurologist, Dr. Balbuena, in 2 weeks. Return to ER for worsening condition. Diet: Heart healthy. Physical Examination: General: Awake, alert, oriented x3, elderly female. CV: S1, S2. Respiratory: Moving air well bilaterally. Abdomen: Soft, nontender, nondistended. Positive bowel sounds. Extremities: No clubbing, cyanosis, or edema. Neuro: Nonfocal. Code Status: Full. SA/MODL Voice ID: [id number] Report ID: [id number]
[2018-08-13] MEDS ORDERED: LEVOTHYROXINE SOD 0.025 MG TAB PO SCH (06:30)
[2018-08-13] MEDS ORDERED: ATENOLOL 50 MG TAB PO SCH (09:00)
[2018-08-13] MEDS ORDERED: ASPIRIN EC 81 MG TAB PO SCH (09:00)
[2018-08-13] MEDS ORDERED: MONTELUKAST 10 MG TAB PO SCH (09:00)
[2018-08-13] MEDS ORDERED: GABAPENTIN 300 MG CAP PO SCH (09:00)
== END 2018-08-12 21:30 | disposition home health service (06) ==
LOC: ER 16:28 → INTOOBSV 18:11 → ERHOLD 18:11 → 2ND 19:08
PROVIDERS: ADMIT Family Medicine; ATTEND Family Medicine
DX: I67.1 Cerebral aneurysm, nonruptured (principal); R53.1 Weakness; N39.0 Urinary tract infection, site not specified; I10 Essential (primary) hypertension; E03.9 Hypothyroidism, unspecified; J44.9 Chronic obstructive pulmonary disease, unspecified; F03.90 Unspecified dementia, unspecified severity, without behavioral disturbance, psychotic disturbance, mood disturbance, and anxiety; Z79.82 Long term (current) use of aspirin; Z79.51 Long term (current) use of inhaled steroids; Z79.899 Other long term (current) drug therapy
CPT/HCPCS: 36415; 70450; 70496; 70498; 80048; 80053; 80061; 81003; 81015; 83735; 84100; 85025; 87077; 87086; 87088; 87186; 93005; 94760; 96365; 97163; 99285; G0378; J0696; J2405

== ENCOUNTER 2018-08-13 10:03 | Inpatient (IN) | payer OTHER ==
--- OUTSIDE RECORDS SUMMARY | 2018-08-13 11:49 | XMS REPORT | Continuity of Care Document ---
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 SL: [id number] Brain/ Brain/Ne EXAM: CTA BRAIN 07/11 - [facility] Neck ck CTA /2015 - [place] CTA EXAM: CTA NECK Read by: Ariadna [...] Date Comments Source Heart Rate 59 03/19/2017 [facility] Temperature Oral (F) 97 F 03/19/2017 [facility] Systolic (mm Hg) 157 03/19/2017 [facility] Diastolic (mm Hg) 81 03/19/2017 [facility] Weight 73.636 03/19/2017 [facility] BMI Calculated 30.67 03/19/2017 [facility] Height 154.94 cm 03/19/2017 [facility] Encounters Location Location Encounter Encounter Reason Attending ADM DC Status Source Details Type Number For Provider Date Date Visit Outpatient [id number] [facility] 07/04 [facility] [place] [facility] [id number] [facility] 07[facility]11 [facility] [place] [facility] [id number] [facility] 07/11 [facility] Di[facility] [id number] [facility] 07/11 07/12 [facility] Outpatient [id number] ASIF 03/27 [facility] [id number] MICHAEL 03/07 [facility] Out[facility] [id number] MICHAEL 03/07 [facility] [place] Outpatient [id number] ASIF 03/19 [facility] [place] [facility] Outpatient [id number] Michael 03/19 03/20 [facility] [id number] MICHAEL 11/14 [facility] Out[facility] [id number] ASIF 05/27 [facility] [facility] Ambulatory [id number] Michael 05/27 05/27 [facility]patient [id number] MICHAEL 11/11 Active [facility] Procedures Procedure Code Date Perfomer Comments Source Acid reflux [id number] [facility] [place] Cataracts [id number] [facility] [place] Craniotomy [id number] [facility] [place] Cystocele [id number] [facility] [place] H/O: hysterectomy [id number] [facility] [place] Hip replacement [id number] [facility] Hx of knee surgery [id number] [facility] [place] Acid reflux [id number] [facility] Cataracts [id number] [facility] Craniotomy [id number] [facility] Cystocele [id number] [facility] H/O: hysterectomy [id number] [facility] Hip replacement [id number] [facility] Hx of knee surgery [id number] [facility]
[2018-08-13] MEDS ORDERED: ACETAMINOPHEN 500 MG TAB PO PRN (12:08)
[2018-08-13] MEDS ORDERED: ONDANSETRON 4 MG/2 ML VIAL IV PRN (12:08)
[2018-08-13] MEDS ORDERED: Meropenem 500 MG VIAL IV SCH (12:08)
[2018-08-13] MEDS: Meropenem 500 MG in NA CHLORIDE 0.9% 100 ML IV SCH ×2 (13:31→16:47)
[2018-08-13] MEDS: NA CHLORIDE 0.9% 1,000 ML IV SCH (13:31)
[2018-08-13 14:00] VITALS: BMI 29.3
[2018-08-13 14:24] LABS: Absolute Lymphocytes (CBC) 1.5 K/uL (0.7-4.9); Basophils % 0.5 % (0-1.3); Eosinophils % 2.4 % (0-4.4); Hematocrit 40.7 % (36.0-45.0); Lymphocytes % 22.6 % (15.3-44.8); MPV 10.1 fL (7.6-11.3); Monocytes % 9.6 % (3.3-12.3); RBC Red Blood Cell Count 4.33 M/uL (3.86-4.86)
[2018-08-13 14:33] LABS: Albumin 3.3 g/dL (3.4-5.0); Bilirubin Total 0.4 mg/dL (0.2-1.0); Potassium 3.7 mmol/L (3.5-5.1); Protein, Total 6.4 g/dL (6.4-8.2)
--- NOTE | 2018-08-13 16:23 | EKG ---
Test Date: 2018-08-13 Test Time: 12:46:59 General Accountant: ANUP MEASUREMENT RESULTS: Intervals: Rate: 56 LA: 180 QRSD: 68 QT: 412 QTc: 397 Oral: P: 55 LA: 180 QRS: -26 T: 16 INTERPRETIVE STATEMENTS: Sinus bradycardia with premature ventricular complexes or fusion complexes Minimal voltage criteria for LVH, may be normal variant Cannot rule out Anterior infarct, age undetermined Abnormal ECG Compared to ECG 08/11/2018 17:00:24 Fusion complex(es) now present Ventricular premature complex(es) now present Left ventricular hypertrophy now present Sinus arrhythmia no longer present First degree AV block no longer present Myocardial infarct finding still present Electronically Signed On 08-13-18 16:22:45 CDT by Byron Preciado
[2018-08-13] MEDS ORDERED: POTASSIUM CL SA 10 MEQ TAB PO ONE (17:00)
--- NOTE | 2018-08-14 01:25 | HP ---
Date of Admission: 08/13/2018 Code Status: Full. Chief Complaint: ESBL E coli in the urine. History Of Present Illness: The patient is an 83-year-old female, who was recently discharged on for TIA and UTI. The patient had been cleared by Neurology and was discharged home on oral a ntibiotics. However, up on urine culture final results, E coli with ESBL-producing strain was found and therefore the patient was directly admitted to the hospital for administration of IV antibiotics. The patient does report some urinary frequency. Otherwise, it is possible that her symptoms were r elated to the UTI and the infection from previous admission. The patient's symptoms are constant, mo derate, progressively worsening. No alleviating factors. Past Medical History: History of brain aneurysm, hypothyroidism, COPD. Surgical History: Hysterectomy, tonsillectomy, bilateral knee surgery, cystocele, rectocele repair, right frontal craniotomy with clipping of aneurysm, 1981. Allergies: TO PHENYTOIN. Medications: List reviewed. 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 The patie nt denies any tobacco use, alcohol use, or illicit drug use. Family History: Mother had hypertension. Review of Systems: Ten-point system reviewed, negative except as per HPI. Physical Examination: Vital Signs: Temperature 97.0, heart rate 57, blood pressure 126/60, respirations 16, O2 94% on room air. General: Awake, alert, oriented x3. Elderly female, not in any acute distress. HEENT: Normocephalic, atraumatic. PERRLA. EOMI. Moist mucous membranes. Oropharynx is clear. No rmal dentition. Conjunctivae are anicteric. Neck: Supple. No JVD. Trachea midline. CV: S1, S2. Regular rate and rhythm. Peripheral pulses present. Respiratory: Moving air well bilaterally. No wheezing or stridor. No use of accessory muscles. Gastrointestinal: Abdomen is soft, nontender, nondistended. Positive bowel sounds. No guarding or rigidity. Extremities: No clubbing, cyanosis, or edema. No calf tenderness. Neuro: Cranial nerves 2-12 intact grossly. No focal neurological deficit. Speech is normal. Stren gth is 5/5, bilateral upper and lower extremities. Sensation intact to light touch. Skin: No rashes. Normal skin turgor. Psych: Mood is okay. Affect is full. Insight and judgment are good. Laboratory Data: Sodium 135, potassium 3.7, chloride 101, CO2 28, BUN 16, creatinine 0.9, glucose 11 5, calcium 8.6, albumin 3.3. Urine culture is growing out ESBL E coli. Assessment And Plan: An 83-year-old female with: 1.ESBL E coli, acute cystitis without hematuria. We will start her on meropenem 500 mg IV q.8 hours , obtain PICC line, and have social work consult for setting up long-term IV antibiotics for 2 weeks. The patient will prefer to have this done at home. We will try to set up home health with infusion s. 2.History of brain aneurysm, status post clipping. The patient was seen recently by Neurology, Dr. Balbuena. He did not recommend any changes in her medication regimen. No intervention planned at this time. 3.COPD, chronic bronchitis. We will resume inhalers. 4.Essential hypertension. Continue atenolol. 5.Hypothyroidism. Continue Synthroid. Admit the patient to med-surg, place as inpatient. Length of stay, greater than 2 midnights. DVT pr ophylaxis with Lovenox. /ALIN Voice ID: [id number]
[2018-08-14] MEDS: Meropenem 500 MG in NA CHLORIDE 0.9% 100 ML IV SCH ×3 (01:32→16:34)
[2018-08-14 07:40] LABS: Albumin 3.1 g/dL (3.4-5.0); Bilirubin Total 0.5 mg/dL (0.2-1.0); Potassium 3.7 mmol/L (3.5-5.1); Protein, Total 6.3 g/dL (6.4-8.2)
[2018-08-14 07:51] LABS: Absolute Lymphocytes (CBC) 1.5 K/uL (0.7-4.9); Eosinophils % 3.2 % (0-4.4); Hematocrit 40.3 % (36.0-45.0); Lymphocytes % 28.4 % (15.3-44.8); MPV 10.6 fL (7.6-11.3); RBC Red Blood Cell Count 4.26 M/uL (3.86-4.86)
[2018-08-14] MEDS ORDERED: GABAPENTIN 300 MG CAP PO SCH (09:00)
[2018-08-14] MEDS ORDERED: MONTELUKAST 10 MG TAB PO SCH (09:00)
[2018-08-14] MEDS ORDERED: ENOXAPARIN 40 MG/0.4 ML SQ SCH (09:00)
[2018-08-14] MEDS ORDERED: ATENOLOL 50 MG TAB PO SCH (09:00)
[2018-08-14] MEDS: NA CHLORIDE 0.9% 1,000 ML IV SCH (09:31)
--- NOTE | 2018-08-14 09:49 | RAD REPORT ---
EXAM DESCRIPTION: RAD - Chest Single View - 08/14/2018 2:37 am CLINICAL HISTORY: 83 years Female PICC Placement TECHNIQUE: One view of the chest. COMPARISON: No prior exams provided for comparison. FINDINGS: There is a left-sided PICC line which appears to terminate in the right subclavian vein. R etraction by approximately 5 cm is recommended. The lungs are clear without focal consolidation, effusion, or pneumothorax. The cardiomediastinal s ilhouette and central pulmonary vasculature are normal. No acute osseous abnormalities. IMPRESSION: Left-sided PICC line appears to terminate in the right subclavian vein and should be ret racted by approximately 5 cm. No other acute cardiopulmonary abnormalities. Electronically signed by: Leti Carbajal MD 08/14/2018 1:46 AM CDT Due to temporary technical issues with the PACS/Fluency reporting system, reports are being signed by the in house radiologist as a courtesy to ensure prompt reporting. The interpreting radiologist is f ully responsible for the content of the report.
--- NOTE | 2018-08-14 09:50 | RAD REPORT ---
EXAM DESCRIPTION: RAD - Chest Single View - 08/14/2018 1:32 am CLINICAL HISTORY: 83 years Female PICC Placement TECHNIQUE: One view of the chest. COMPARISON: No prior exams provided for comparison. FINDINGS: There is a left-sided PICC line which appears to terminate in the right subclavian vein. R etraction by approximately 5 cm is recommended. The lungs are clear without focal consolidation, effusion, or pneumothorax. The cardiomediastinal s ilhouette and central pulmonary vasculature are normal. No acute osseous abnormalities. IMPRESSION: Left-sided PICC line appears to terminate in the right subclavian vein and should be ret racted by approximately 5 cm. No other acute cardiopulmonary abnormalities. Electronically signed by: Leti Carbajal MD 08/14/2018 1:46 AM CDT Due to temporary technical issues with the PACS/Fluency reporting system, reports are being signed by the in house radiologist as a courtesy to ensure prompt reporting. The interpreting radiologist is f ully responsible for the content of the report.
[2018-08-14 11:29] VITALS: O2SAT 95
[2018-08-14 18:56] VITALS: BP 128/50; TEMP 97
--- NOTE | 2018-08-15 00:19 | DS ---
Date of Discharge: 08/14/2018 Discharge Diagnoses: 1. ESBL E coli. infection 2. Acute cystitis without hematuria secondary to ESBL E coli. 3. History of brain aneurysm, status post clipping. 4. COPD, chronic bronchitis. 5. Essential hypertension. 6. Hypothyroidism. Hospital Course: The patient is an 83-year-old female, who was admitted directly to the hospital for treatment for ESBL E coli in the urine. The patient was started on meropenem. PICC line was placed. She was set up with home infusion therapy and home health agency came out to instruct the patient on infusion. The patient does have help with her daughter and other friends to continue the infusions at home. The patient was then cleared for discharge. She did not have any significant symptoms at the time of discharge. She did not appear to be septic. Her white blood cell count was normal. The patient was then sent home in a stable condition with home health. Medications: As per medication rec reconciliation list. Followup: Follow up with primary care physician in 2-3 days. Follow up with neurologist, Dr. Balbuena, as scheduled. Return to ER for worsening condition. The patient will need weekly CBC, CMP, ESR, and CRP. Repeat urine culture once IV antibiotics are completed. Physical Examination: General: Awake, alert, oriented x3, elderly female. CV: S1, S2. No murmurs. Respiratory: Moving air well bilaterally. Abdomen: Soft, nontender, nondistended. Positive bowel sounds. Extremities: No clubbing, cyanosis, or edema. Neuro: Nonfocal. Total time spent discharging the patient was 34 minutes. HEMA Voice ID: [id number] Report ID: [id number] CHARLENE
== END 2018-08-14 18:06 | disposition home health service (06) | DRG 690 ==
LOC: 2ND 11:34
PROVIDERS: ADMIT Family Medicine; ATTEND Family Medicine
PROC: 05H533Z Insertion of Infusion Device into Right Subclavian Vein, Percutaneous Approach (ICD-10-PCS; principal; 2018-08-13)
DX: N30.00 Acute cystitis without hematuria (principal); B96.20 Unspecified Escherichia coli [E. coli] as the cause of diseases classified elsewhere; Z16.12 Extended spectrum beta lactamase (ESBL) resistance; J44.9 Chronic obstructive pulmonary disease, unspecified; I10 Essential (primary) hypertension; E03.9 Hypothyroidism, unspecified; Z86.73 Personal history of transient ischemic attack (TIA), and cerebral infarction without residual deficits
CPT/HCPCS: 36415; 70450; 70496; 70498; 71045; 80048; 80053; 80061; 81003; 81015; 83735; 84100; 85025; 87077; 87086; 87088; 87186; 93005; 94760; 96365; 97163; 99285; G0378; J0696; J1650; J2405; J7030

== ENCOUNTER 2018-08-18 09:32 | Emergency (ER) | payer OTHER ==
--- OUTSIDE RECORDS SUMMARY | 2018-08-18 09:39 | XMS REPORT | Continuity of Care Document ---
:1935 Author Organization [employer] Care Team Providers Name Role Phone [employer] Unavailable Unavailable Problems Problem Status Onset Classification Date Comments Source Date Reported I67.1 - CEREBRAL Active 02/22/19 [facility] ANEURYSM, 18 [place] NONRUPTURED I67.1 - Active 12/22/19 [facility] "CEREBRAL 16 [facility] ANEURYSM, NONRUPTURED" Aneurysm Resolved Problem 05/29/2018 [facility] [place] Bronchitis Resolved Problem 05/29/2018 [facility] [place] Dizziness Resolved Problem 05/29/2018 [facility] Falling Resolved Problem 05/29/2018 [facility] Subarachnoid Resolved Problem 05/29/2018 [facility] hemorrhage [facility] Hypothyroid Resolved Problem 05/29/2018 [facility] Cerebral Active Problem 05/29/2018 [facility] aneurysm [facility] Lower back pain Resolved Problem 05/29/2018 [facility] Lumbar Resolved Problem 05/29/2018 [facility] radiculopathy [facility] 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 [facility] Medications No Data Provided for This Section Allergies, Adverse Reactions, Alerts Substance Category Reaction Severity Reaction Status Date Comments Source type Reported phenytoin Assertion Drug Active [facility] allergy [facility] Immunizations No Data Provided for This Section Results No Data Provided for This Section Pathology Reports No Data Provided for This Section Diagnostic Reports Report Value Date Source Brain/Neck CTA Patient Name: DIONTE MASTERSON 03/12/2017 BRANDEN Johansen : 1935; Age: 82 years y/o Female MR: [id number] Study: Brain/Neck CTA 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 CTA of the head and neck from . TECHNIQUE: Sequential trans-axial images of the head [...] diameter and 16 mm in length). SL: [id number] Brain/Neck CTA EXAM: CTA BRAIN 07/12/2015 [facility] EXAM: CTA NECK EXAM: Noncontrast CT brain DATE: 07/05/2015 3:53 PM CDT INDICATION: I67.1 [...] well visualized. Otherwise, no proximal occlusion or flow- limiting stenosis is identified intracranially. IMPRESSION: 1. No [...] the distal internal carotid artery {NASCET criteria}.) Consultation Notes No Data Provided for This Section Discharge Summaries No Data Provided for This Section History and Physicals No Data Provided for This Section Vital Signs Vital Sign Value Date Comments Source Heart Rate 59 03/19/2017 [facility] Temperature Oral (F) 97 F 03/19/2017 [facility] Systolic (mm Hg) 157 03/19/2017 [facility] Diastolic (mm Hg) 81 03/19/2017 [facility] Weight 73.636 03/19/2017 [facility] BMI Calculated 30.67 03/19/2017 [facility] Height 154.94 cm 03/19/2017 [facility] Encounters Location Location Encounter Encounter Reason Attending ADM DC Status Source Details Type Number For Provider Date Date Visit Outpatient [id number] [facility] 07/04 [facility] [place] Outpatient [id number] [facility] 07/11 [facility] [place] Outpatient [id number] [facility] 07/11 [facility] [place] [facility] Out[facility] Diag [id number] [facility] 07/11 07/12 [facility] Outpatient [id number] ASIF 03/27 [facility] [id number] MICHAEL 03/07 [facility] [place] Outpatient [id number] MICHAEL 03/07 [facility] [place] Outpatient [id number] ASIF 03/19 [facility] [place] [facility] Outpatient [id number] Michael 03/19 03/20 [facility]patient [id number] MICHAEL 11/14 [facility] [place] Outpatient [id number] ASIF 05/27 [facility] [place] [facility] Ambulatory [id number] Michael 05/27 05/27 [facility] Outpatient [id number] MICHAEL 11/11 Active [facility] Procedures Procedure Code Date Perfomer Comments Source Acid reflux [id number] [facility] Cataracts [id number] [facility] Craniotomy 59895028 [facility] Cystocele 53403559 [facility] H/O: hysterectomy [id number] [facility] Hip replacement 564882636 [facility] Hx of knee surgery 588774837 [facility] Acid reflux [id number] [facility] [place] Cataracts [id number] [facility] [place] Craniotomy [id number] [facility] Cystocele [id number] [facility] [place] H/O: hysterectomy [id number] [facility] [place] Hip replacement [id number] [facility] Hx of knee surgery [id number] [facility] Assessment and Plan No Data Provided for This Section Plan of Care No Data Provided for This Section Social History Social History Date Source Social History TypeResponse 11/14/2017 [facility] Smoking Status Never smoker; Type: Cigarettes; Previous treatment: None; Ready to change: No; Concerns about tobacco use in household: No; Exposure to Tobacco Smoke None; Cigarette Smoking Last 365 Days No; Reg Smoking Cessation Counseling No entered on: 11/14/17 Social History TypeResponse 07/12/2015 [facility] Smoking Status Never smoker; Type: Cigarettes; Previous treatment: None; Ready to change: No; Concerns about tobacco use in household: No; Exposure to Tobacco Smoke None; Cigarette Smoking Last 365 Days No; Reg Smoking Cessation Counseling No Family History No Data Provided for This Section Advance Directives No Data Provided for This Section Functional Status No Data Provided for This Section
--- NOTE | 2018-08-18 11:19 | RAD REPORT ---
EXAM DESCRIPTION: RAD - Chest Single View - 08/18/2018 10:58 am CLINICAL HISTORY: Device placement PICC line placement COMPARISON: August 14, 2018 FINDINGS: A PICC line has been inserted with its tip in the left brachiocephalic vein The lungs appear clear of acute infiltrate. The heart is borderline enlarged IMPRESSION: PICC line with its tip in the left brachiocephalic vein
--- NOTE | 2018-08-18 11:33 | ER ---
Nurse's Notes [facility] Name: Radha Parada Age: 83 yrs Sex: Female : 1935 Arrival Date: 08/18/2018 Time: 09:36 Bed 13 Private MD: Fercho Martin Diagnosis: dislodged Left upper arm PICC line Presentation: 08/18 09:36 Presenting complaint: Patient states: Home health is concerned that L upper arm PICC ss may have been come out a small amount and patient is concerned because she has missed two of her infusions. Transition of care: patient was not received from another setting of care. Onset of symptoms is unknown. Risk Assessment: Do you want to hurt yourself or someone else? Patient reports no desire to harm self or others. Initial Sepsis Screen: Does the patient meet any 2 criteria? No. Patient's initial sepsis screen is negative. Does the patient have a suspected source of infection? No. Patient's initial sepsis screen is negative. Care prior to arrival: None. 09:36 Method Of Arrival: Ambulatory ss 09:36 Acuity: DEBORAH 4 ss Triage Assessment: 09:35 General: Appears in no apparent distress. comfortable, Behavior is calm, cooperative. ls4 09:35 Pain: Denies pain. Neuro: No deficits noted. Cardiovascular: No deficits noted. ls4 Respiratory: No deficits noted. Historical: - Allergies: 09:37 Dilantin; ss - PMHx: 09:37 Aneurysm; ss - PSHx: 09:37 Hysterectomy; aneursym surgery; reflux surgery; hip replacement; ss - Immunization history:: Adult Immunizations up to date. - Social history:: Smoking status: Patient/guardian denies using tobacco. - Ebola Screening: : Patient denies exposure to infectious person Patient denies travel to an Ebola-affected area in the 21 days before illness onset. - Family history:: not pertinent. - Hospitalizations: : The patient was recently seen at [facility], and discharged 4 day(s) ago. Screenin:41 Abuse screen: Denies threats or abuse. Denies injuries from another. Nutritional ls4 screening: No deficits noted. 09:41 Tuberculosis screening: No symptoms or risk factors identified. Fall Risk None ls4 identified. Assessment: 10:35 Reassessment: Patient appears in no apparent distress at this time. Patient and/or ls4 family updated on plan of care and expected duration. Pain level reassessed. Patient is alert, oriented x 3, equal unlabored respirations, skin warm/dry/pink. 11:30 Reassessment: No changes from previously documented assessment. Patient and/or family ls4 updated on plan of care and expected duration. Pain level reassessed. Patient is alert, oriented x 3, equal unlabored respirations, skin warm/dry/pink. 12:38 Reassessment: Patient appears in no apparent distress at this time. Patient and/or ls4 family updated on plan of care and expected duration. Pain level reassessed. Patient is alert, oriented x 3, equal unlabored respirations, skin warm/dry/pink. Vital Signs: 09:45 BP 135 / 72; Pulse 70; Resp 18; Temp 98.2(TE); Pulse Ox 97% on R/A; Weight 69.4 kg; ss Height 5 ft. 1 in. (154.94 cm); Pain 0/10; 11:00 BP 138 / 74; Pulse 59; Resp 14; Pulse Ox 98% on R/A; Pain 0/10; ls4 12:37 BP 171 / 79; Pulse 59; Resp 16; Temp 98.0; Pulse Ox 97% on R/A; Pain 0/10; ls4 09:45 Body Mass Index 28.91 (69.40 kg, 154.94 cm) ED Course: 09:36 Patient arrived in ED. mr 09:36 Fercho Martin MD is Private Physician. mr 09:37 Triage completed. ss 09:37 Arm band placed on right wrist. 09:41 Patient has correct armband on for positive identification. Bed in low position. Call ls4 light in reach. Side rails up X 1. telemetry monitor on. Pulse ox on. NIBP on. 09:41 No provider procedures requiring assistance completed. Flushed left PICC line with 5 ml ls4 normal saline positive blood return. 09:45 Lorenzo Rios MD is Attending Physician. ia 09:57 Rosetta Cleveland, KELSEY is Primary Nurse. ls4 10:57 X-ray completed. Portable x-ray completed in exam room. Patient tolerated procedure jb2 well. 10:58 Chest Single View XRAY In Process Unspecified. EDMS 11:31 Fercho Martin MD is Referral Physician. wa 12:39 port flushed. ls4 Administered Medications: 11:48 Drug: Meropenem 500 mg {Note: pt own medication .} Route: IV; Rate: bolus; Site: left ls4 upper arm; 12:39 Follow up: IV Status: Completed infusion; pt own med infused. ls4 Intake: Outcome: 11:32 Discharge ordered by . wa 12:38 Discharged to home ambulatory. ls4 12:38 Condition: stable 12:38 Discharge instructions given to patient, Instructed on discharge instructions, follow up and referral plans. safety practices, Demonstrated understanding of instructions, follow-up care, medications. 12:40 Patient left the ED. ls4 Signatures: Dispatcher [employer] Rocio Clifford MarisadavidsarahClifford Shelby, KELSEY COLE Lorenzo Rios MD MD wa Stewart, Lisa, RN RN ls4
--- NOTE | 2018-08-18 11:33 | EDPHYS ---
Physician Documentation [facility] Name: Radha Parada Age: 83 yrs Sex: Female : 1935 Arrival Date: 08/18/2018 Time: 09:36 Bed 13 Private MD: Fercho Martin ED Physician Lorenzo Rios HPI: 08/18 10:54 This 83 yrs old Female presents to ER via Ambulatory with complaints of PICC wa line problem. 10:54 c/o PICC line problem. [facility] PICC line placed 08/14/18 and sent home for merrem wa infusions due to urinary tract infection. [facility] has missed last 2 doses as home care nurse fears the line is longer on the outside than it was initially and needs checked. pt denies swelling, redness, pain of fever. 11:11 Onset: The symptoms/episode began/occurred 2 day(s) ago. Severity of symptoms: At their wa worst the symptoms were mild in the emergency department the symptoms are unchanged. The patient has not experienced similar symptoms in the past. The patient has been recently seen by a physician: moisés/king'moisés from [facility] on 08/14. as noted above. Historical: - Allergies: 09:37 Dilantin; ss - PMHx: 09:37 Aneurysm; ss - PSHx: 09:37 Hysterectomy; aneursym surgery; reflux surgery; hip replacement; ss - Immunization history:: Adult Immunizations up to date. - Social history:: Smoking status: Patient/guardian denies using tobacco. - Ebola Screening: : Patient denies exposure to infectious person Patient denies travel to an Ebola-affected area in the 21 days before illness onset. - Family history:: not pertinent. - Hospitalizations: : The patient was recently seen at [facility], and discharged 4 day(s) ago. ROS: 11:13 Constitutional: Negative for fever, chills, and weight loss, Eyes: Negative for injury, wa pain, redness, and discharge, ENT: Negative for injury, pain, and discharge, Neck: Negative for injury, pain, and swelling, Cardiovascular: Negative for chest pain, palpitations, and edema, Respiratory: Negative for shortness of breath, cough, wheezing, and pleuritic chest pain, Abdomen/GI: Negative for abdominal pain, nausea, vomiting, diarrhea, and constipation, Back: Negative for injury and pain, : Negative for injury, bleeding, discharge, and swelling, MS/Extremity: Negative for injury and deformity, Neuro: Negative for headache, weakness, numbness, tingling, and seizure, Psych: Negative for depression, anxiety, suicide ideation, homicidal ideation, and hallucinations. 11:13 Skin: Positive for PICC in L upper earm. 11:13 All other systems are negative. Exam: 11:13 Constitutional: This is a well developed, well nourished patient who is awake, alert, wa and in no acute distress. Head/Face: Normocephalic, atraumatic. Eyes: Pupils equal round and reactive to light, extra-ocular motions intact. Lids and lashes normal. Conjunctiva and sclera are non-icteric and not injected. Cornea within normal limits. Periorbital areas with no swelling, redness, or edema. ENT: Nares patent. No nasal discharge, no septal abnormalities noted. Tympanic membranes are normal and external auditory canals are clear. Oropharynx with no redness, swelling, or masses, exudates, or evidence of obstruction, uvula midline. Mucous membranes moist. Neck: Trachea midline, no thyromegaly or masses palpated, and no cervical lymphadenopathy. Supple, full range of motion without nuchal rigidity, or vertebral point tenderness. No Meningismus. Chest/axilla: Normal chest wall appearance and motion. Nontender with no deformity. No lesions are appreciated. Cardiovascular: Regular rate and rhythm with a normal S1 and S2. No gallops, murmurs, or rubs. Normal PMI, no JVD. No pulse deficits. Respiratory: Lungs have equal breath sounds bilaterally, clear to auscultation and percussion. No rales, rhonchi or wheezes noted. No increased work of breathing, no retractions or nasal flaring. Abdomen/GI: Soft, non-tender, with normal bowel sounds. No distension or tympany. No guarding or rebound. No evidence of tenderness throughout. Back: No spinal tenderness. No costovertebral tenderness. Full range of motion. Neuro: Awake and alert, GCS 15, oriented to person, place, time, and situation. Cranial nerves II-XII grossly intact. Motor strength 5/5 in all extremities. Sensory grossly intact. Cerebellar exam normal. Normal gait. Psych: Awake, alert, with orientation to person, place and time. Behavior, mood, and affect are within normal limits. 11:13 Skin: intact L upper arm PICC line. clean dressing noted. no swelling or redness. about 2 cm longer on the outside than usual but otherwise clean dressing intact. Vital Signs: 09:45 BP 135 / 72; Pulse 70; Resp 18; Temp 98.2(TE); Pulse Ox 97% on R/A; Weight 69.4 kg; ss Height 5 ft. 1 in. (154.94 cm); Pain 0/10; 11:00 BP 138 / 74; Pulse 59; Resp 14; Pulse Ox 98% on R/A; Pain 0/10; ls4 12:37 BP 171 / 79; Pulse 59; Resp 16; Temp 98.0; Pulse Ox 97% on R/A; Pain 0/10; ls4 09:45 Body Mass Index 28.91 (69.40 kg, 154.94 cm) ss MDM: 09:45 Patient medically screened. wa 11:15 Differential Diagnosis will eval picc for malfunction. plan to infuse merrrem if line wa wnl. otherwise, fresh stick for merrem until line issue resolved. Data reviewed: vital signs, nurses notes. 11:29 Test interpretation: by ED physician or midlevel provider: CXR: tip of PICC line noted wa in the L brachiocephalic vein. Special discussion: spoke with radiologist about PICC. Dr. Zee advises that although pulled back, the current location should still be ok. 08/18 10:27 Order name: Chest Single View XRAY; Complete Time: 11:26 08/18 10:12 Order name: IV Start; Complete Time: 10:48 08/18 11:35 Order name: Misc. Order: you may use PICC line for infusion at this time; Complete wa Time: 11:48 Administered Medications: 11:48 Drug: Meropenem 500 mg {Note: pt own medication .} Route: IV; Rate: bolus; Site: left ls4 upper arm; 12:39 Follow up: IV Status: Completed infusion; pt own med infused. ls4 Disposition: 08/18/18 11:32 Discharged to Home. Impression: dislodged Left upper arm PICC line. - Condition is Stable. - Discharge Instructions: PICC Home Guide, PICC Insertion, Care After. - Medication Reconciliation Form, Thank You Letter, Antibiotic Education, Prescription Opioid Use form. - Follow up: Fercho Martin MD; When: 2 - 3 days; Reason: Recheck today's complaints. - Problem is new. - Symptoms have improved. - Notes: although pulled back from initial location. the line works fine. do not attempt to advance it any further. continue infusions. return for any malfunction. Signatures: Dispatcher [employer] EDKrysta Ayoub RN RN Lorenzo Rios MD MD wa Stewart, Lisa, RN RN ls4 Corrections: (The following items were deleted from the chart) 12:40 11:32 08/18/2018 11:32 Discharged to Home. Impression: dislodged Left upper arm PICC ls4 line. Condition is Stable. Forms are Medication Reconciliation Form, Thank You Letter, Antibiotic Education, Prescription Opioid Use. Follow up: Fercho Martin; When: 2 - 3 days; Reason: Recheck today's complaints. Problem is new. Symptoms have improved. randal
[2018-08-20 17:09] VITALS: BP 171/79; TEMP 98; O2SAT 97
== END 2018-08-18 12:40 | disposition home or self-care (01) ==
LOC: ER 09:32
DX: T82.9XXA Unspecified complication of cardiac and vascular prosthetic device, implant and graft, initial encounter (principal); Z88.8 Allergy status to other drugs, medicaments and biological substances
CPT/HCPCS: 71045; 96365; 99284

== ENCOUNTER 2018-08-23 13:29 | Emergency (ER) | payer OTHER ==
--- OUTSIDE RECORDS SUMMARY | 2018-08-23 13:33 | XMS REPORT | Continuity of Care Document ---
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 SL: [id number] Brain/Neck CTA EXAM: CTA BRAIN 07/12/2015 GEE [...] Date Comments Source Heart Rate 59 03/19/2017 [facility] [place] Oral (F) 97 F 03/19/2017 [facility] Systolic (mm Hg) 157 03/19/2017 [facility] Diastolic (mm Hg) 81 03/19/2017 [facility] Weight 73.636 03/19/2017 [facility] BMI Calculated 30.67 03/19/2017 [facility] Height 154.94 cm 03/19/2017 [facility] Encounters Location Location Encounter Encounter Reason Attending ADM DC Status Source Details Type Number For Provider Date Date Visit Outpatient [id number] [facility] 07/04 [facility] Outpatient [id number] [facility] 07/11 [facility] [place] Outpatient [id number] [facility] 07/11 [facility] [place] [facility] Outpt Diag [id number] [facility] 07/11 07/12 [facility] [place] [facility] Outpatient [id number] AS[facility] 03/27 [facility] [place] Outpatient [id number] MICHAEL 03/07 [facility] [place] Outpatient [id number] MICHAEL 03/07 [facility] [place] Outpatient [id number] ASIF 03/19 [facility] [place] [facility] Outpatient [id number] Michael 03/19 03/20 [facility] [id number] MICHAEL 11/14 [facility] [place] Outpatient [id number] ASIF 05/27 [facility] Ambulatory [id number] Michael 05/27 05/27 [facility] Outpatient [id number] MICHAEL 11/11 Active [facility] [place] Procedures Procedure Code Date Perfomer Comments Source Acid reflux [id number] [facility] Cataracts [id number] [facility] Craniotomy [id number] [facility] Cystocele [id number] [facility] H/O: hysterectomy [id number] [facility] Hip replacement [id number] [facility] Hx of knee surgery [id number] [facility] Acid reflux [id number] [facility] Cataracts [id number] [facility] Craniotomy [id number] [facility] Cystocele [id number] [facility] H/O: hysterectomy [id number] [facility] Hip replacement [id number] [facility] Hx of knee surgery [id number] [facility] Assessment and Plan No Data [...]
--- NOTE | 2018-08-23 14:13 | RAD REPORT ---
EXAM DESCRIPTION: RAD - Chest Single View - 08/23/2018 2:05 pm CLINICAL HISTORY: PICC line placement check Chest pain. COMPARISON: Chest Single View dated 08/18/2018; Chest Single View dated 08/14/2018; Chest Single View d ated 08/14/2018; Chest Pa And Lat (2 Views) dated 07/04/2016 FINDINGS: Portable technique limits examination quality. The lungs are grossly clear. The heart is normal in size. The left PICC line has its tip in the brach iocephalic vein.
--- NOTE | 2018-08-23 14:27 | EDPHYS ---
Physician Documentation [facility] Name: Radha Parada Age: 83 yrs Sex: Female : 1935 Arrival Date: 08/23/2018 Time: 13:31 Bed 15 Private MD: ED Physician Nina Higgins HPI: 08/23 14:01 This 83 yrs old Female presents to ER via Ambulatory with complaints of PICC kb line problem. 14:01 Home Health Nurse concerned that her PICC line is out of place. Was told to come get a kb x-ray to confirm placement . Onset: The symptoms/episode began/occurred this morning. Severity of symptoms: At their worst the symptoms were very mild in the emergency department the symptoms are unchanged. The patient has not experienced similar symptoms in the past. The patient has not recently seen a physician. Historical: - Allergies: 13:47 Dilantin; hj - PMHx: 13:47 Aneurysm; hj - PSHx: 13:47 Hysterectomy; aneursym surgery; reflux surgery; hj - Immunization history:: Adult Immunizations up to date. - Social history:: Smoking status: Patient/guardian denies using tobacco, Patient/guardian denies using alcohol. - Ebola Screening: : Patient negative for fever greater than or equal to 101.5 degrees Fahrenheit, and additional compatible Ebola Virus Disease symptoms Patient denies exposure to infectious person Patient denies travel to an Ebola-affected area in the 21 days before illness onset. ROS: 13:59 Constitutional: Negative for fever, chills, and weight loss, ENT: Negative for injury, kb pain, and discharge, Neck: Negative for injury, pain, and swelling, Cardiovascular: Negative for chest pain, palpitations, and edema, Respiratory: Negative for shortness of breath, cough, wheezing, and pleuritic chest pain, Abdomen/GI: Negative for abdominal pain, nausea, vomiting, diarrhea, and constipation, Back: Negative for injury and pain, MS/Extremity: Negative for injury and deformity, Skin: Negative for injury, rash, and discoloration, Neuro: Negative for headache, weakness, numbness, tingling, and seizure. Exam: 13:59 Constitutional: This is a well developed, well nourished patient who is awake, alert, kb and in no acute distress. Head/Face: Normocephalic, atraumatic. ENT: Nares patent. No nasal discharge, no septal abnormalities noted. Tympanic membranes are normal and external auditory canals are clear. Oropharynx with no redness, swelling, or masses, exudates, or evidence of obstruction, uvula midline. Mucous membranes moist. Neck: Trachea midline, no thyromegaly or masses palpated, and no cervical lymphadenopathy. Supple, full range of motion without nuchal rigidity, or vertebral point tenderness. No Meningismus. Chest/axilla: Normal chest wall appearance and motion. Nontender with no deformity. No lesions are appreciated. Cardiovascular: Regular rate and rhythm with a normal S1 and S2. No gallops, murmurs, or rubs. Normal PMI, no JVD. No pulse deficits. Respiratory: Lungs have equal breath sounds bilaterally, clear to auscultation and percussion. No rales, rhonchi or wheezes noted. No increased work of breathing, no retractions or nasal flaring. Abdomen/GI: Soft, non-tender, with normal bowel sounds. No distension or tympany. No guarding or rebound. No evidence of tenderness throughout. Skin: Warm, dry with normal turgor. Normal color with no rashes, no lesions, and no evidence of cellulitis. Neuro: Awake and alert, GCS 15, oriented to person, place, time, and situation. Cranial nerves II-XII grossly intact. Motor strength 5/5 in all extremities. Sensory grossly intact. Cerebellar exam normal. Normal gait. 13:59 Musculoskeletal/extremity: Extremities: grossly normal except: noted in the left upper arm: PICC line. Vital Signs: 13:50 BP 132 / 59; Pulse 73; Resp 18; Temp 97.6(TE); Pulse Ox 100% on R/A; Weight 68.04 kg; hj Height 5 ft. 1 in. (154.94 cm); Pain 0/10; 13:50 Body Mass Index 28.34 (68.04 kg, 154.94 cm) hj MDM: 13:39 Patient medically screened. kb 13:58 Data reviewed: vital signs, nurses notes. Data interpreted: Pulse oximetry: on room air kb is 100 %. Interpretation: normal. 14:25 Counseling: I had a detailed discussion with the patient and/or guardian regarding: the kb historical points, exam findings, and any diagnostic results supporting the discharge/admit diagnosis, radiology results, the need for outpatient follow up, a family practitioner, to return to the emergency department if symptoms worsen or persist or if there are any questions or concerns that arise at home. 08/23 13:49 Order name: Chest Single View XRAY; Complete Time: 14:19 kb Administered Medications: No medications were administered Disposition: 08/23/18 14:26 Discharged to Home. Impression: Encounter for adjustment and management of unspecified implanted device - PICC. - Condition is Stable. - Discharge Instructions: PICC Home Guide. - Medication Reconciliation Form, Thank You Letter, Antibiotic Education, Prescription Opioid Use form. - Follow up: Emergency Department; When: As needed; Reason: Worsening of condition. Follow up: Private Physician; When: 2 - 3 days; Reason: Recheck today's complaints, Continuance of care, Re-evaluation by your physician. Addendum: 08/28/2018 02:08 Co-signature as Attending Physician, Nina Higigns MD. m a2 Signatures: Dispatcher [employer] Maura Joiner, DEAC JANIE-Dav Cummins, RN RN Nina Cuevas MD MD ma2 Corrections: (The following items were deleted from the chart) 08/23 14:31 14:26 08/23/2018 14:26 Discharged to Home. Impression: Encounter for adjustment and hj management of unspecified implanted device - PICC. Condition is Stable. Forms are Medication Reconciliation Form, Thank You Letter, Antibiotic Education, Prescription Opioid Use. Follow up: Emergency Department; When: As needed; Reason: Worsening of condition. Follow up: Private Physician; When: 2 - 3 days; Reason: Recheck today's complaints, Continuance of care, Re-evaluation by your physician. kb
--- NOTE | 2018-08-23 14:27 | ER ---
Nurse's Notes [facility] Name: Radha Parada Age: 83 yrs Sex: Female : 1935 Arrival Date: 08/23/2018 Time: 13:31 Bed 15 Private MD: Diagnosis: Encounter for adjustment and management of unspecified implanted device-PICC Presentation: 08/23 13:44 Presenting complaint: Patient states: the home health nurse came in this morning and hj changed my PICC line dressing and told me it was bleeding and it has move a bit for 1 cm, she recommended to check its placement; denies pain;. Transition of care: patient was not received from another setting of care. Onset of symptoms was August 23, 2018. Risk Assessment: Do you want to hurt yourself or someone else? Patient reports no desire to harm self or others. Initial Sepsis Screen: Does the patient meet any 2 criteria? No. Patient's initial sepsis screen is negative. Does the patient have a suspected source of infection? No. Patient's initial sepsis screen is negative. Care prior to arrival: None. 13:44 Method Of Arrival: Ambulatory 13:44 Acuity: DEBORAH 4 Triage Assessment: 13:48 General: Appears in no apparent distress. uncomfortable, Behavior is calm, cooperative, hj appropriate for age. Pain:. Historical: - Allergies: 13:47 Dilantin; hj - PMHx: 13:47 Aneurysm; hj - PSHx: 13:47 Hysterectomy; aneursym surgery; reflux surgery; hj - Immunization history:: Adult Immunizations up to date. - Social history:: Smoking status: Patient/guardian denies using tobacco, Patient/guardian denies using alcohol. - Ebola Screening: : Patient negative for fever greater than or equal to 101.5 degrees Fahrenheit, and additional compatible Ebola Virus Disease symptoms Patient denies exposure to infectious person Patient denies travel to an Ebola-affected area in the 21 days before illness onset. Screenin:47 Abuse screen: Denies threats or abuse. Denies injuries from another. Nutritional hj screening: No deficits noted. Tuberculosis screening: No symptoms or risk factors identified. Fall Risk None identified. Vital Signs: 13:50 BP 132 / 59; Pulse 73; Resp 18; Temp 97.6(TE); Pulse Ox 100% on R/A; Weight 68.04 kg; hj Height 5 ft. 1 in. (154.94 cm); Pain 0/10; 13:50 Body Mass Index 28.34 (68.04 kg, 154.94 cm) hj ED Course: 13:31 Patient arrived in ED. mr 13:39 Porfirio VillatoroSHEKHAR [facility] kb 13:39 Nina Higgins MD is Attending Physician. kb 13:43 Dav Wing, RN is Primary Nurse. hj 13:45 Triage completed. hj 13:48 Arm band placed on left wrist. hj 13:48 Patient has correct armband on for positive identification. Bed in low position. Call hj light in reach. Side rails up X 1. 14:05 Chest Single View XRAY In Process Unspecified. EDMS 14:31 No provider procedures requiring assistance completed. Patient did not have IV access hj during this emergency room visit. Administered Medications: No medications were administered Outcome: 14:26 Discharge ordered by MD. kb 14:31 Discharged to home ambulatory. hj 14:31 Condition: stable 14:31 Discharge instructions given to patient, Instructed on discharge instructions, follow up and referral plans. Demonstrated understanding of instructions, follow-up care. 14:31 Patient left the ED. hj Signatures: Dispatcher [employer] EDMS Maura Villatoro FNP-C FNP-Ckb oRcio Baker mr Dav Wing, RN RN marlene Corrections: (The following items were deleted from the chart) 13:52 13:50 BP 106 / 69; Pulse 73bpm; Resp 18bpm; Pulse Ox 100% RA; Temp 97.6F Temporal; hj 68.04 kg; Height 5 ft. 1 in.; BMI: 28.3; Pain 0/10; hj
[2018-08-23 14:38] VITALS: BP 132/59; TEMP 97.6; O2SAT 100
== END 2018-08-23 14:31 | disposition home or self-care (01) ==
LOC: ER 13:29
DX: Z45.89 Encounter for adjustment and management of other implanted devices (principal); Z88.8 Allergy status to other drugs, medicaments and biological substances
CPT/HCPCS: 71045; 99283

== ENCOUNTER 2018-09-09 12:24 | Day surgery (SDC) | payer OTHER ==
--- OUTSIDE RECORDS SUMMARY | 2018-09-09 12:34 | XMS REPORT | Continuity of Care Document ---
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 02/22/19 [facility] ANEURYSM, 18 [place] NONRUPTURED I67.1 - Active 12/22/19 [facility] "CEREBRAL 16 [place] ANEURYSM, NONRUPTURED" Aneurysm Resolved Problem 09/04/2018 [facility] [place] Bronchitis Resolved Problem 09/04/2018 [facility] [place] Dizziness Resolved Problem 09/04/2018 [facility] Falling Resolved Problem 09/04/2018 [facility] Subarachnoid Resolved Problem 09/04/2018 [facility] Hypothyroid Resolved Problem 09/04/2018 [facility] Cerebral Active Problem 09/04/2018 [facility] aneurysm [facility] Lower back pain Resolved Problem 09/04/2018 [facility] Lumbar Resolved Problem 09/04/2018 [facility] radiculopathy [facility] 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 SL: [id number] Brain/Neck CTA EXAM: CTA BRAIN 07/12/2015 GEE [...] Date Comments Source Heart Rate 59 03/19/2017 [facility] Temperature Oral (F) 97 F 03/19/2017 [facility] Systolic (mm Hg) 157 03/19/2017 [facility] Diastolic (mm Hg) 81 03/19/2017 [facility] Weight 73.636 03/19/2017 [facility] BMI Calculated 30.67 03/19/2017 [facility] Height 154.94 cm 03/19/2017 [facility] Encounters Location Location Encounter Encounter Reason Attending ADM DC Status Source Details Type Number For Provider Date Date Visit Outpatient [id number] [facility] 07/04 [facility] [place] Outpatient [id number] [facility] 07/11 [facility] [place] Outpatient [id number] LUCILLE VELMA 07/11 [facility][Note 3] [place] [facility] Diag [id number] [facility] 07/11 07/12 [facility] Outpatient [id number] ASIF 03/27 [facility] [place] Outpatient [id number] MICHAEL 03/07 [facility] [place] Outpatient [id number] MICHAEL 03/07 [facility] [place] Outpatient [id number] ASIF 03/19 [facility] [place] [facility] Outpatient [id number] Michael 03/19 03/20 [facility] Neurosurger [facility] /2017 [facility] [id number] MICHAEL 11/14 [facility] [place] [facility] Outside [id number] 02/13 02/15 [facility] Neurology Medical /2017 [facility] Outpatient [id number] ASIF 05/27 Active [facility] [place] [facility] Ambulatory [id number] Michael 05/27 05/27 [facility] Neurosurger Pre-Reg [facility] Outpatient [id number] MICHAEL 11/11 Active [facility] [place] Procedures Procedure Code Date Perfomer Comments Source Acid reflux [id number] [facility] Cataracts [id number] [facility] Craniotomy [id number] [facility] Cystocele [id number] [facility] H/O: hysterectomy [id number] [facility] Hip replacement [id number] [facility] Hx of knee surgery [id number] [facility] Acid reflux [id number] [facility] [place] Cataracts [id number] [facility] [place] Craniotomy [id number] BR[facility] [place] Cystocele [id number] [facility] H/O: hysterectomy [id number] [facility] Hip replacement [id number] [facility] Hx of knee surgery [id number] [facility] [place] Assessment and Plan No Data Provided for This Section Plan of Care No Data Provided for This Section Social History Social History Date Source Social History TypeResponse 11/14/2017 [facility] Smoking Status Never smoker; Type: Cigarettes; [...]
--- OUTSIDE RECORDS SUMMARY | 2018-09-09 12:34 | XMS REPORT | Summary of Care ---
:1935 Author Organization [facility] [place] Address [address] [place] [address]- Encounter HQ Encntr_alias(FIN) [id number] Date(s): 02/13/18 - 02/14/18 [facility] [address] [place] [address]- [phone] Vital Signs No data available for this [...]
[2018-09-09 13:12] VITALS: BMI 28.3
[2018-09-09 14:10] VITALS: BP 143/65; TEMP 98.8; O2SAT 96
== END 2018-09-09 14:05 | disposition home or self-care (01) ==
LOC: DS 12:24
PROVIDERS: ATTEND Family Medicine
DX: A49.9 Bacterial infection, unspecified (principal); Z87.440 Personal history of urinary (tract) infections
CPT/HCPCS: 96365

== ENCOUNTER 2021-04-10 11:05 | Emergency (ER) | payer OTHER ==
--- OUTSIDE RECORDS SUMMARY | 2021-04-10 11:10 | XMS REPORT | Continuity of Care Document ---
:1935 Author Organization [facility] t Address [address] [place] [address] Care Team Providers Name Role Phone Erika Martin Attending Clinician Unavailable Problems This patient has no known problems. Allergies, Adverse Reactions, Alerts Allergy Allergy Status Severity Reaction(s) Onset Inactive Treating Comm ents Source Name Type Date Date Clinician Dilantin Adverse Active Info Not [facility] Medications Ordered Filled Start Stop Current Ordering Indication Dosage Frequency Signature Comments Components Source Medication Medication Date Date Medication? Clinician (SIG) Name Name Augmentin Augmentin 2019-0 2020- No Luz Maria [address] [facility] 10-07 [facility] Procedures This patient has no known procedures. Encounters Start End Encounter Admission Attending Care Care Encounter Source Date/Time Date/Time Type Type Clinicians Facility Department ID 2021-03-15 Outpatient Maritn, [facility] [id number] [facility] 13:47:41 [place] [id number] [facility] 2021-03-15 Outpatient Martin, [facility] [id number] [facility] 11:32:23 [place] [id number] [facility] 2021-03-15 Outpatient Martin, [facility] [id number] [facility] 11:02:43 [place] [id number] [facility] 2020-12-22 2020-12-22 ambulatory [facility] [id number] [facility] 2020-05-24 2020-05-24 Outpatient [facility] [id number] [facility] 2020-04-18 2020-04-18 Outpatient [facility] [id number] [facility] 2020-03-07 2020-03-07 Outpatient [facility] [id number] [facility] 2020-01-22 2020-01-22 [facility] [id number] 2020-01-08 2020-01-08 Out[facility] [id number] [facility] 2019-10-08 2019-10-08 [facility] [id number] [facility] 13:58:00 13:58:00 t [facility] 2019-10-05 2019-10-05 [facility] [id number] [facility] 11:30:00 11:30:00 t [facility] 2019-09-21 2019-09-21 [facility] [id number] 14:34:00 14:34:00 t Special[facility] 2019-09-09 2019-09-09 [facility] [id number] [facility] 11:00:00 11:00:00 t Special[facility] Clin[facility] 2019-09-01 2019-09-01 [facility] [id number] 13:10:00 13:10:00 t Special[facility] Clin[facility] 2019-07-15 2019-07-15 [facility] [id number] [facility] 11:00:00 11:00:00 t Special[facility] Clin[facility] 2019-05-12 2019-05-12 [facility] [id number] [facility] 08:50:00 08:50:00 t Specialty/[facility] Out[facility] ent Clinics 2019-04-20 2019-04-20 [facility] [id number] 11:14:00 11:14:00 t Special[facility] Out[facility] Clin[facility] 2019-04-16 2019-04-16 [facility] [id number] 10:30:00 10:30:00 t Special[facility] Out[facility] Clin[facility] 2019-03-12 2019-03-12 [facility] [id number] 11:03:00 11:03:00 t Specialty/[facility] Out[facility] Clin[facility] 2019-03-05 2019-03-05 [facility] [id number] [facility] 13:06:00 13:06:00 t Specialty/[facility] Out[facility] ent Clinics 2019-01-06 2019-01-06 [facility] [id number] [facility] 08:15:00 08:15:00 t Specialty/[facility] Out[facility] Clin[facility] 2019-01-02 2019-01-02 [facility] [id number] 14:30:00 14:30:00 t Specialty/[facility] Clin[facility] 2018-12-15 2018-12-15 [facility] [id number] 10:18:00 10:18:00 t Special[facility] Out[facility] Clin[facility] 2018-11-17 2018-11-17 [facility] [id number] 14:29:00 14:29:00 t Special[facility] Out[facility] Clinics 2018-11-13 2018-11-13 [facility] [id number] 11:00:00 11:00:00 t Special[facility] Out[facility] ent Clinics 2018-11-11 2018-11-11 [facility] [id number] 08:25:00 08:25:00 t Special[facility] Clin[facility] 2018-11-07 2018-11-07 [facility] [id number] 14:15:00 14:15:00 t Specialty/[facility] Out[facility] ent Clinics 2018-10-13 2018-10-13 [facility] [id number] 15:36:00 15:36:00 t Specialty/[facility] Out[facility] ent Clinics 2018-10-13 2018-10-13 [facility] [id number] 14:15:00 14:15:00 t Specialty/[facility] Out[facility] Clinics Results This patient has no known results.
[2021-04-10] MEDS ORDERED: ACETAMINOPHEN 500 MG TAB ONE (12:05)
--- NOTE | 2021-04-10 12:05 | RAD REPORT ---
EXAM DESCRIPTION: CT - Pelvis Wo Cont - 04/10/2021 11:39 am CLINICAL HISTORY: Trauma;Pain COMPARISON: No comparisons TECHNIQUE: Axial 2 millimeter thick images of the pelvis were obtained without oral or IV contrast. Sagittal and coronal reformatted images were generated and reviewed using 3Scan metallic suppression software. All CT scans are performed using dose optimization technique as appropriate and may include automate d exposure control or mA/KV adjustment according to patient size. FINDINGS: Patient has advanced lumbar spine degenerative change. L3-4, L4-5 and L5-S1 significant de generative disc disease present there is little if any remaining disc material at L4-5. L4-5 central spinal stenosis is present. Advanced facet joint degenerative changes are seen. There is approximatel y 5 mm left lateral subluxation of L4 on L5. Sacral ala are intact. No significant SI joint or pubic symphysis abnormality. No fracture of the bon y pelvis. Minimal right hip joint degenerative change present. No proximal right femur finding. 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 No acute implant or bone finding identifiable. No soft tissue mass or hematoma seen. No gross abnormality in the visualized peritoneal or retroperit giraldo spaces. IMPRESSION: No acute fracture to the pelvis or proximal femora. Left total hip prosthesis in place with additional hardware from subsequent fracture. No acute proces s confirmed at this site. Advanced lumbar spine degenerative change involving the lower 3 disc levels with L4-5 central spinal stenosis.
--- NOTE | 2021-04-10 12:11 | RAD REPORT ---
EXAM DESCRIPTION: CT - [id number] - 04/10/2021 11:39 am CLINICAL HISTORY: PAINfall, head trauma COMPARISON: Neck Angio dated 08/11/2018; [id number] dated 03/24/2008; Head Brain Wo Cont date d 08/11/2018 TECHNIQUE: Axial 5 mm thick images of the head were obtained. Axial 2 mm thick images of the cervic al spine were obtained with sagittal and coronal reconstruction images generated and reviewed. All CT scans are performed using dose optimization technique as appropriate and may include automated exposure control or mA/KV adjustment according to patient size. FINDINGS: No intracranial hemorrhage, mass, edema or acute intracranial finding. No acute cortical b ased infarction identified. Underlying atrophy is moderate for age. Ventriculomegaly is present equal to or slightly out of proportion to the amount of volume loss. Ventricular size has not change from 2019. Proximally 2 centimeter mass lesion along the inner table right frontal bone at the midline has not changed. 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 Mass i s not fully assessed on a noncontrast study. Patient has significant cerebral white matter chronic is chemic change. There are postsurgical changes to the right frontal bone. No new extra-axial fluid col lection Mastoid air cells and paranasal sinuses are clear. No globe or orbit abnormality seen. Modera te-sized posterior scalp hematoma is present. Cervical body height is normal. Reversal of the usual cervical lordosis present at C4-5 and stable. S light retrolisthesis of C4 on C5 and C5 on C6 are stable alignment findings. Slight anterior subluxat ion of C3 on C4 also appears to be stable. All disc levels except C2-3 show significant loss in disc height. Prominent endplate spurring changes are present C4-C6. Multilevel bony foraminal encroachment present from uncovertebral joint hypertrophy. Central spinal stenosis at C5-C6 is suspected but not changed. No fracture or acute bony abnormality. No pathologic bone process. Central canal detail is i nherently limited. No paraspinal mass or hematoma. IMPRESSION: No intracranial hemorrhage. No edema or acute intracranial process seen. Atrophy with mild ventriculomegaly and cerebral white matter chronic ischemic changes are stable. 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 Advanced cervical spine degenerative change as detailed. No acute finding.
--- NOTE | 2021-04-10 12:15 | ER ---
Nurse's Notes [facility] Name: Radha Parada Age: 86 yrs Sex: Female : 1935 Arrival Date: 04/10/2021 Time: 11:09 Bed 26 Private MD: Fercho Martin Diagnosis: Fall on same level from slipping, tripping and stumbling without subsequent striking against object;Unspecified injury of head, initial encounter Presentation: 04/10 11:14 Chief complaint: Patient states: Was going to PT and when she opened the door a wind ph brooks blew the door open causing her to fall, hematoma to L occipital area, denies LOC, states she takes a baby aspirin. Coronavirus screen: Vaccine status: Patient reports receiving the 2nd dose of the covid vaccine. Ebola Screen: No symptoms or risks identified at this time. Initial Sepsis Screen: Does the patient meet any 2 criteria? No. Patient's initial sepsis screen is negative. Does the patient have a suspected source of infection? No. Patient's initial sepsis screen is negative. Risk Assessment: Do you want to hurt yourself or someone else? Patient reports no desire to harm self or others. Onset of symptoms was April 10, 2021. 11:14 Method Of Arrival: Ambulatory ph 11:14 Acuity: DEBORAH 2 ph 11:25 Care prior to arrival: None. Mechanism of Injury: Fall from standing position. Trauma ph event details: Injury occurred in the [facility], Injury occurred: in a public building. Injury occurred: April 10, 2021. Triage Assessment: 11:59 General: Behavior is calm, cooperative. eo2 Trauma Activation: Alert Physician: ED Physician; Name: ; Notified At: ; Arrived At: Physician: General Surgeon; Name: ; Notified At: ; Arrived At: Physician: Radiology; Name: ; Notified At: ; Arrived At: Physician: Respiratory; Name: ; Notified At: ; Arrived At: Physician: Lab; Name: ; Notified At: ; Arrived At: Historical: - Allergies: 11:22 Dilantin; ph - PMHx: 11:22 Aneurysm; ph - Immunization history:: Client reports receiving the 2nd dose of the Covid vaccine. - Immunization history: Last tetanus immunization: < 10 years ago. - Social history:: Smoking status: Patient denies any tobacco usage or history of. Screenin:21 Abuse screen: Denies threats or abuse. Denies injuries from another. Nutritional ph screening: No deficits noted. Tuberculosis screening: No symptoms or risk factors identified. Fall Risk Fall in past 12 months (25 points). No secondary diagnosis (0 pts). No IV (0 pts). Ambulatory Aid- None/Bed Rest/Nurse Assist (0 pts). Gait- Normal/Bed Rest/Wheelchair (0 pts) Mental Status- Oriented to own ability (0 pts). 12:00 The patient has not been NPO before screening. The patient is alert, able to follow eo2 commands. The patient does not exhibit slurred or garbled speech The patient is not exhibiting difficulty speaking. The patient does not exhibit difficulty understanding words. The patient is able to swallow own secretions with no drooling or need for suction. Patient tolerated one teaspoon of water. No drooling, immediate coughing, gurgling, or clearing of the throat was noted. The patient tolerated 90mL of water. No drooling, immediate coughing, gurgling, or clearing of the throat was noted. The patient passed the bedside swallow screening. Oral medications may be given as ordered. Contact Physician for further diet orders. Primary Survey: 11:21 NO uncontrolled hemorrhage observed. A: The patient is alert. Airway: patent, No ph supplemental oxygen in use on arrival. Oral cavity: clear, Trachea midline. Breathing/Chest: Respiratory pattern: regular, Respiratory effort: spontaneous, unlabored, Chest inspection: symmetrical rise and fall of the chest. Circulation: Skin color: pink, Skin temperature: warm, dry. Disability Alert. Exposure/Environment: There is no evidence of uncontrolled external bleeding. Obvious injury(ies) are noted at this time: hematoma to L occipital area. 11:59 Reassessment Breathing/Chest Respiratory pattern Regular Respiratory effort Spontaneous eo2 Unlabored Breath sounds Clear. Secondary Survey: 11:57 HEENT: No deficits noted. Gastrointestinal: No deficits noted. : No deficits noted. eo2 Musculoskeletal: No deficits noted. Assessment: 11:21 General: Appears in no apparent distress. comfortable. ph 11:22 Pain: Complains of pain in low back, R hip and L hip. Neuro: Level of Consciousness is ph awake, alert, obeys commands, Oriented to person, place, time, situation. Cardiovascular: Capillary refill < 3 seconds in bilateral fingers Patient's skin is warm and dry. Respiratory: Airway is patent Respiratory effort is even, unlabored, Respiratory pattern is regular, symmetrical. Derm: Skin is intact, Skin is pink, warm \T\ dry. Musculoskeletal: Circulation, motion, and sensation intact. Range of motion: intact in all extremities. 12:22 Reassessment: Patient appears in no apparent distress at this time. No changes from vg1 previously documented assessment. Patient and/or family updated on plan of care and expected duration. Pain level reassessed. Patient is alert, oriented x 3, equal unlabored respirations, skin warm/dry/pink. Vital Signs: 11:14 Pulse 69; Resp 18; Temp 98.1; Pulse Ox 96% on R/A; Weight 67.13 kg; Height 4 ft. 11 in. ph (149.86 cm); 11:17 BP 168 / 73; ph 11:58 BP 152 / 64; Pulse 50; Resp 15; Pulse Ox 98% ; Pain 10/10; eo2 12:27 BP 147 / 54; Pulse 63; Resp 16; Pulse Ox 96% on R/A; vg1 11:14 Body Mass Index 29.89 (67.13 kg, 149.86 cm) ph Dino Coma Score: 11:17 Eye Response: spontaneous(4). Verbal Response: oriented(5). Motor Response: obeys ph commands(6). Total: 15. 12:27 Eye Response: spontaneous(4). Verbal Response: oriented(5). Motor Response: obeys vg1 commands(6). Total: 15. Trauma Score (Adult): 11:17 Eye Response: spontaneous(1); Verbal Response: oriented(1); Motor Response: obeys ph commands(2); Systolic BP: > 89 mm Hg(4); Respiratory Rate: 10 to 29 per min(4); Dino Score: 15; Trauma Score: 12 ED Course: 11:09 Patient arrived in ED. mr 11:10 Fercho Martin MD is Private Physician. mr 11:17 Triage completed. ph 11:17 Arm band placed on. ph 11:19 [facility]ator[facility]-C [facility]. kb 11:19 Jimmy Richards MD is Attending Physician. kb 11:26 Patient maintains SpO2 saturation greater than 95% on room air. Thermoregulation: warm ph blanket given to patient. 11:39 CT Head C Spine In Process Unspecified. EDMS 11:39 CT Pelvis wo Cont In Process Unspecified. EDMS 11:44 Kathy Hendricks, RN is Primary Nurse. eo2 11:58 Patient has correct armband on for positive identification. eo2 11:58 No provider procedures requiring assistance completed. eo2 12:28 Patient did not have IV access during this emergency room visit. vg1 Administered Medications: 12:04 Drug: Tylenol 1000 mg Route: PO; eo2 Intake: 11:17 PO: 0ml; Total: 0ml. ph Output: 11:17 Urine: 0ml; Total: 0ml. ph Outcome: 12:14 Discharge ordered by . kb 12:28 Discharged to home via wheelchair, with family. vg1 12:28 Condition: good 12:28 Discharge instructions given to patient, Instructed on discharge instructions, follow up and referral plans. Demonstrated understanding of instructions, follow-up care. 12:29 Patient's length of stay was not longer than 2 hours. vg1 12:29 Patient left the ED. vg1 Signatures: Dispatcher [employer] EDMS Maura Villatoro, SENIOR COUNSEL-C SENIOR COUNSEL-Mariano Rocio Baker Julia Preciado, RN RN Marcella Salazar, RN RN vg1 Kathy Hendricks, RN RN eo2
--- NOTE | 2021-04-10 12:16 | EDPHYS ---
Physician Documentation [facility] Name: Radha Parada Age: 86 yrs Sex: Female : 1935 Arrival Date: 04/10/2021 Time: 11:09 Bed 26 Private MD: Fercho Martin ED Physician Jimmy Richards HPI: 04/10 11:35 This 86 yrs old Female presents to ER via Ambulatory with complaints of Fall Injury. kb 11:35 Details of fall: The patient fell from an upright position. Onset: The symptoms/episode kb began/occurred just prior to arrival. Associated injuries: The patient sustained injury to the head, hematoma, pain, tenderness, injury to the low back, pain with movement, right hip and left hip, pain. Severity of symptoms: At their worst the symptoms were moderate, in the emergency department the symptoms are unchanged. The patient has not experienced similar symptoms in the past. The patient has not recently seen a physician. Pt states she opened the door to go to PT and the wind caught it causing her to fall backwards. Reports pain to head, tailbone and hips. Denies LOC. Historical: - Allergies: 11:22 Dilantin; ph - PMHx: 11:22 Aneurysm; ph - Immunization history:: Client reports receiving the 2nd dose of the Covid vaccine. - Immunization history: Last tetanus immunization: < 10 years ago. - Social history:: Smoking status: Patient denies any tobacco usage or history of. ROS: 11:32 Constitutional: Negative for fever, chills, and weight loss. kb 11:32 Back: Positive for pain at rest, pain with movement, of the sacrum. 11:32 MS/extremity: Positive for pain, of the left hip and right hip. 11:32 Skin: Positive for hematoma. 11:32 Neuro: Positive for headache. 11:32 All other systems are negative. Exam: 11:33 Constitutional: This is a well developed, well nourished patient who is awake, alert, kb and in no acute distress. ENT: Moist Mucous membranes Cardiovascular: Regular rate and rhythm with a normal S1 and S2. No gallops, murmurs, or rubs. No pulse deficits. Respiratory: Respirations even and unlabored. No increased work of breathing. Talking in full sentences Abdomen/GI: Soft, non-tender. No distention MS/ Extremity: Pulses equal, no cyanosis. Neurovascular intact. Full, normal range of motion. Neuro: Awake and alert, GCS 15, oriented to person, place, time, and situation. Moves all extremities. Normal gait. Psych: Awake, alert, with orientation to person, place and time. Behavior, mood, and affect are within normal limits. 11:33 Head/face: Noted is no obvious of injury or deformity except hematoma, that is moderate, of the left occipital area. 11:33 Back: pain, that is mild, of the sacrum, left low back and right low back, ROM is normal, normal spinal alignment noted. 11:33 Skin: hematoma to left back of head. Vital Signs: 11:14 Pulse 69; Resp 18; Temp 98.1; Pulse Ox 96% on R/A; Weight 67.13 kg; Height 4 ft. 11 in. ph (149.86 cm); 11:17 BP 168 / 73; ph 11:58 BP 152 / 64; Pulse 50; Resp 15; Pulse Ox 98% ; Pain 10/10; eo2 12:27 BP 147 / 54; Pulse 63; Resp 16; Pulse Ox 96% on R/A; vg1 11:14 Body Mass Index 29.89 (67.13 kg, 149.86 cm) ph Dino Coma Score: 11:17 Eye Response: spontaneous(4). Verbal Response: oriented(5). Motor Response: obeys ph commands(6). Total: 15. 12:27 Eye Response: spontaneous(4). Verbal Response: oriented(5). Motor Response: obeys vg1 commands(6). Total: 15. Trauma Score (Adult): 11:17 Eye Response: spontaneous(1); Verbal Response: oriented(1); Motor Response: obeys ph commands(2); Systolic BP: > 89 mm Hg(4); Respiratory Rate: 10 to 29 per min(4); Dino Score: 15; Trauma Score: 12 MDM: 11:24 Patient medically screened. kb 11:32 Data reviewed: vital signs, nurses notes. Data interpreted: Pulse oximetry: on room air kb is 96 %. Interpretation: normal. 12:13 Counseling: I had a detailed discussion with the patient and/or guardian regarding: the kb historical points, exam findings, and any diagnostic results supporting the discharge/admit diagnosis, radiology results, the need for outpatient follow up, a family practitioner, to return to the emergency department if symptoms worsen or persist or if there are any questions or concerns that arise at home. 04/10 11:20 Order name: CT Head C Spine; Complete Time: 12:13 kb 04/10 11:24 Order name: CT Pelvis wo Cont; Complete Time: 12:06 kb Administered Medications: 12:04 Drug: Tylenol 1000 mg Route: PO; eo2 Disposition Summary: 04/10/21 12:14 Discharge Ordered Location: Home kb Condition: Stable kb Diagnosis - Fall on same level from slipping, tripping and stumbling without subsequent kb striking against object - Unspecified injury of head, initial encounter kb Followup: kb - With: Private Physician - When: 2 - 3 days - Reason: Recheck today's complaints, Continuance of care, Re-evaluation by your physician Followup: kb - With: Emergency Department - When: As needed - Reason: Worsening of condition Discharge Instructions: - Discharge Summary Sheet kb - Hematoma, [id number] kb - Musculoskeletal Pain kb - Head Injury, Adult, [id number] kb Forms: - Medication Reconciliation Form kb - Thank You Letter kb - Antibiotic Education kb - Prescription Opioid Use kb Signatures: Dispatcher [employer] Maura Joiner, MANAGER TITLE-C MANAGER TITLE-Julia Campbell, RN RN Kathy Hendricks RN RN eo2
[2021-04-10 12:55] VITALS: TEMP 98.1
[2021-04-10 12:58] VITALS: BP 147/54; O2SAT 96
== END 2021-04-10 12:29 | disposition home or self-care (01) ==
LOC: ER 11:05
DX: S00.83XA Contusion of other part of head, initial encounter (principal); M25.552 Pain in left hip; M25.551 Pain in right hip; W01.0XXA Fall on same level from slipping, tripping and stumbling without subsequent striking against object, initial encounter
CPT/HCPCS: 70450; 72125; 72192; 99284

== ENCOUNTER 2022-04-27 20:21 | Observation (INO) | payer OTHER ==
--- OUTSIDE RECORDS SUMMARY | 2022-04-27 20:25 | XMS REPORT | Continuity of Care Document ---
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 2017-03-12 Memoria 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, ANEURYSM, 00:01: Herm rebecca NONRUPTURE NONRUPTURE 00 D D Active 02/22/2017 GEE [place] I67.1 - I67.1 - Diagnosis Active 2015-022016-02-24 Memoria "CEREBRAL "CEREBRAL - 16:14:00 l ANEURYSM, ANEURYSM, 00:01: Herm rebecca NONRUPTURE NONRUPTURE 00 D" D" Active 12/22/2015 MH BRANDEN Ballesteros Incontinen Incontinen Problem C ommon [facility] [id number] Sciatica Problem Commo n of right [facility] side [facility] [id number] 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 - [facility] urinary [facility] [id number] Recurrent Problem Com mon UTI Spirit - [facility] Aneurysm Aneurysm Problem Resolve 2021-10-27 Memoria (disorder) (disorder) d 03:33:27 l Resolved Favian Problem 10/27/2021 [facility],GEE [place] Bronchitis Bronchiti Problem Resolve 2021-10-27 Memoria (disorder) s d 03:33:27 l (disorder) Jose n Resolved Problem 10/27/2021 [facility]ischer Abhilash,GEE [place] Dizziness Dizziness Problem Resolve 2021-10-27 Memoria (finding) (finding) d 03:33:27 l Resolved Keyes Problem 10/27/2021 [facility] Falling Falling Problem Resolve 2021-10-27 M emoria injury injury d 03:33:27 l (finding) (finding) Herm rebecca Resolved Problem 10/27/2021 [facility] Hemorrhage Hemorrhag Problem Resolve 2021-10-27 Memoria into e into d 03:33:27 l subarachno subarachno He rmann id space id space of of neuraxis neuraxis (disorder) (disorder) Resolved Problem 10/27/2021 [facility] Hypothyroi Hypothyro Problem Resolve 2021-10-27 Memoria dism idism d 03:33:27 l (disorder) (disorder) He rmann Resolved Problem 10/27/2021 [facility] Low back Low back Problem Resolve 2021-10-27 Memoria pain pain d 03:33:27 l (disorder) (disorder) He rmann Resolved Problem 10/27/2021 [facility] 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 10/27/2021 [facility] Lumbar Lumbar Problem Active 2021-10-27 Riley gayle radiculopa radiculopa 03:33:27 l thy thy Keyes (disorder) (disorder) Active Problem 10/27/2021 [facility] 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:33:27 l neuralgia neuralgia Herm rebecca (disorder) (disorder) Active Problem 10/27/2021 [facility] Allergies, Adverse Reactions, Alerts Allergy Allergy Status Severity Reaction(s) Onset Inactive Treating Comm ents Source Name Type Date Date Clinician phenytoi phenytoi Active Memori a n n l [place] phenytoi phenytoi Active Unknown Commo n n n [facility] Social History Social Habit Start Date Stop Date Quantity Comments Source History of Tobacco Use Co mmon [facility] Sex Assigned At Com mon [facility] Smoking Status Start Date Stop Date Source Social History [facility] Medications Ordered Filled Start Stop Current Ordering Indication Dosage Frequency Signature Comments Components Source Medication Medication Date Date Medication? Clinician (SIG) Name Name Estradiol Estradiol 2021-02 No Estradiol 0.1 MG/GM 0.1 MG/GM -16 0.1 MG/GM 00:00: 00 Estradiol Estradiol 2021-02 No Estradiol 0.1 MG/GM 0.1 MG/GM -16 0.1 MG/GM 00:00: 00 Methenamine Methenamine 2021-2022- No 1{table QD Methenamin Hippurate 1 Hippurate 1 10-04 05-20 t} e GM GM 00:00: 00:00 Hippurate 00 :00 1 GM Methenamine Methenamine 2022- No 1{table QD Methenamin Hippurate 1 Hippurate 1 10-04 05-15 t} e GM GM 00:00: 00:00 Hippurate 00 :00 1 GM Methenamine Methenamine 2021-2022- No 1{table QD Methenamin Hippurate 1 Hippurate 1 10-04-18 t} e GM GM 00:00: 00:00 Hippurate 00 :00 1 GM Methenamine Methenamine 2021-0 2022- No 1{table QD Methenamin Hippurate 1 Hippurate 1 10-04-18 t} e GM GM 00:00: 00:00 Hippurate 00 :00 1 GM Methenamine Methenamine 2021-0 2022- No 1{table QD Methenamin Hippurate 1 Hippurate 1 10-0418 t} e GM GM 00:00: 00:00 Hippurate 00 :00 1 GM Methenamine Methenamine 2021-0 2021- No 1{table BID Methenamin Hippurate 1 Hippurate 1 10-04 08-27 t} e GM GM 00:00: 00:00 Hippurate 00 :00 1 GM gabapentin Yes 300 mg = 1 M emoria 300 mg oral 8-16 cap, PO, l capsule 16:13: TID, X 90 Radha nn 00 day, # 270 cap, 2 Refill(s), Pharmacy: [id number], 147.32, cm, 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1 MG/GM 00:00: 00 gabapentin Yes 300 mg = 1 M emoria 300 MG Oral 3-03 cap, PO, l Capsule 16:53: TID, X 90 Radha nn 00 day, # 270 cap, 2 Refill(s), Pharmacy: [id number], 149.86, cm, 07/21/19 9:59:00 CDT, Height, 70, kg, 07/21/19 9:59:00 CDT, Weight Augmentin Augmentin 2020- No Luz Maria 1 tablet Common 10-07 Edi Spirit 00:00: 00:00 - [facility]I 00 :00 [facility] gabapentin 2019-0 No See Memoria 300 MG Oral 6-08 Instructio l Capsule 13:33: ns, TAKE Jose n 00 ONE CAPSULE BY MOUTH A DAY AND 2 CAPSULES AT BEDTIME, # 270 cap, 3 Refill(s), Pharmacy: [id number] gabapentin 2020-0 Yes See Memoria 300 MG Oral 07-20 Instructio l Capsule 15:15: ns, TAKE Jose n 00 ONE CAPSULE BY MOUTH A DAY AND 2 CAPSULES AT BEDTIME, # 90 cap, 9 Refill(s), Pharmacy: [id number] Aspirin 81 2020-0 Yes 81 mg = 1 Me moria MG Enteric 6- tab, PO, l Coated 15:14: Daily, # Keyes Tablet 00 90 tab, 3 Refill(s) methenamine 2020-0 Yes 1 gm, PO, M emoria hippurate 6 BID, 0 l 15:01: Refill(s) Favian 00 Atenolol 50 Atenolol 50 No 1{table QD Atenolol MG MG t} 50 MG Montelukast Montelukast No 1{table QD Montelukas Sodium 10 Sodium 10 t} t Sodium MG MG 10 MG Gabapentin Gabapentin No 1{capsu QD Gabapentin 300 MG 300 MG le} 300 MG Vitamin D-3 Vitamin D-3 No Vitamin 5000 UNIT 5000 UNIT D-3 5000 UNIT Montelukast Montelukast No 1{table QD Montelukas Sodium 10 Sodium 10 t} t Sodium MG MG 10 MG Atenolol 50 Atenolol 50 No 1{table QD Atenolol MG MG t} 50 MG Levothyroxi Levothyroxi No QD Levothyrox ne Sodium ne Sodium ine Sodium 25 MCG 25 MCG 25 MCG methylPREDN methylPREDN No methylPRED ISolone 4 ISolone 4 NISolone 4 MG MG MG Vitamin B Vitamin B No Vitamin B 12 100 MCG 12 100 MCG 12 100 MCG Aspir-81 Aspir-81 No Aspir-81 Gabapentin Gabapentin No 1{capsu QD Gabapentin 300 MG 300 MG le} 300 MG Viteyes Viteyes No Viteyes AREDS AREDS AREDS Formula - Formula - Formula - Vitamin D-3 Vitamin D-3 No Vitamin 5000 UNIT 5000 UNIT D-3 5000 UNIT Montelukast Montelukast No 1{table QD Montelukas Sodium 10 Sodium 10 t} t Sodium MG MG 10 MG Atenolol 50 Atenolol 50 No 1{table QD Atenolol MG MG t} 50 MG Levothyroxi Levothyroxi No QD Levothyrox ne Sodium ne Sodium ine Sodium 25 MCG 25 MCG 25 MCG methylPREDN methylPREDN No methylPRED ISolone 4 ISolone 4 NISolone 4 MG MG MG Vitamin D-3 Vitamin D-3 No Vitamin 5000 UNIT 5000 UNIT D-3 5000 UNIT Vitamin B Vitamin B No Vitamin B 12 100 MCG 12 100 MCG 12 100 MCG Viteyes Viteyes No Viteyes AREDS AREDS AREDS Formula - Formula - Formula - Aspir-81 Aspir-81 No Aspir-81 Gabapentin Gabapentin No 1{capsu QD Gabapentin 300 MG 300 MG le} 300 MG Aspir-81 Aspir-81 No Aspir-81 Viteyes Viteyes No Viteyes AREDS AREDS AREDS Formula - Formula - Formula - methylPREDN methylPREDN No methylPRED ISolone 4 ISolone 4 NISolone 4 MG MG MG Levothyroxi Levothyroxi No QD Levothyrox ne Sodium ne Sodium ine Sodium 25 MCG 25 MCG 25 MCG Vitamin B Vitamin B No Vitamin B 12 100 MCG 12 100 MCG 12 100 MCG Atenolol 50 Atenolol 50 No 1{table QD Atenolol MG MG t} 50 MG Montelukast Montelukast No 1{table QD Montelukas Sodium 10 Sodium 10 t} t Sodium MG MG 10 MG Gabapentin Gabapentin No 1{capsu QD Gabapentin 300 MG 300 MG le} 300 MG Vitamin D-3 Vitamin D-3 No Vitamin 5000 UNIT 5000 UNIT D-3 5000 UNIT Viteyes Viteyes No Viteyes AREDS AREDS AREDS Formula - Formula - Formula - Methenamine Methenamine No Methenamin Hippurate 1 Hippurate 1 e GM GM Hippurate 1 GM Tamsulosin Tamsulosin No 1{capsu QD Tamsulosin HCl 0.4 MG HCl 0.4 MG le} HCl 0.4 MG Gabapentin Gabapentin No 1{capsu QD Gabapentin 300 MG 300 MG le} 300 MG Levothyroxi Levothyroxi No QD Levothyrox ne Sodium ne Sodium ine Sodium 25 MCG 25 MCG 25 MCG Vitamin B Vitamin B No Vitamin B 12 100 MCG 12 100 MCG 12 100 MCG Aspir-81 Aspir-81 No Aspir-81 Centrum Centrum No Centrum Silver - Silver - Silver - Montelukast Montelukast No 1{table QD Montelukas Sodium 10 Sodium 10 t} t Sodium MG MG 10 MG Vitamin D-3 Vitamin D-3 No Vitamin 5000 UNIT 5000 UNIT D-3 5000 UNIT Cranberry Cranberry No Cranberry 250 MG 250 MG 250 MG Atenolol 50 Atenolol 50 No 1{table QD Atenolol MG MG t} 50 MG Citracal + Citracal + No Citracal + D D D Vitamin B Vitamin B No Vitamin B 12 100 MCG 12 100 MCG 12 100 MCG Gabapentin Gabapentin No 1{capsu QD Gabapentin 300 MG 300 MG le} 300 MG Viteyes Viteyes No Viteyes AREDS AREDS AREDS Formula - Formula - Formula - Montelukast Montelukast No 1{table QD Montelukas Sodium 10 Sodium 10 t} t Sodium MG MG 10 MG Levothyroxi Levothyroxi No QD Levothyrox ne Sodium ne Sodium ine Sodium 25 MCG 25 MCG 25 MCG Vitamin D-3 Vitamin D-3 No Vitamin 5000 UNIT 5000 UNIT D-3 5000 UNIT methylPREDN methylPREDN No methylPRED ISolone 4 ISolone 4 NISolone 4 MG MG MG Atenolol 50 Atenolol 50 No 1{table QD Atenolol MG MG t} 50 MG Aspir-81 Aspir-81 No Aspir-81 Vitamin B Vitamin B No Vitamin B 12 100 MCG 12 100 MCG 12 100 MCG Gabapentin Gabapentin No 1{capsu QD Gabapentin 300 MG 300 MG le} 300 MG Viteyes Viteyes No Viteyes AREDS AREDS AREDS Formula - Formula - Formula - Montelukast Montelukast No 1{table QD Montelukas Sodium 10 Sodium 10 t} t Sodium MG MG 10 MG Levothyroxi Levothyroxi No QD Levothyrox ne Sodium ne Sodium ine Sodium 25 MCG 25 MCG 25 MCG Vitamin D-3 Vitamin D-3 No Vitamin 5000 UNIT 5000 UNIT D-3 5000 UNIT methylPREDN methylPREDN No methylPRED ISolone 4 ISolone 4 NISolone 4 MG MG MG Atenolol 50 Atenolol 50 No 1{table QD Atenolol MG MG t} 50 MG Aspir-81 Aspir-81 No Aspir-81 Vitamin B Vitamin B No Vitamin B 12 100 MCG 12 100 MCG 12 100 MCG Levothyroxi Levothyroxi No QD Levothyrox ne Sodium ne Sodium ine Sodium 25 MCG 25 MCG 25 MCG Gabapentin Gabapentin No 1{capsu QD Gabapentin 300 MG 300 MG le} 300 MG Viteyes Viteyes No Viteyes AREDS AREDS AREDS Formula - Formula - Formula - Montelukast Montelukast No 1{table QD Montelukas Sodium 10 Sodium 10 t} t Sodium MG MG 10 MG Vitamin D-3 Vitamin D-3 No Vitamin 5000 UNIT 5000 UNIT D-3 5000 UNIT methylPREDN methylPREDN No methylPRED ISolone 4 ISolone 4 NISolone 4 MG MG MG Atenolol 50 Atenolol 50 No 1{table QD Atenolol MG MG t} 50 MG Aspir-81 Aspir-81 No Aspir-81 Aspir-81 Aspir-81 No Aspir-81 Viteyes Viteyes No Viteyes AREDS AREDS AREDS Formula - Formula - Formula - methylPREDN methylPREDN No methylPRED ISolone 4 ISolone 4 NISolone 4 MG MG MG Levothyroxi Levothyroxi No QD Levothyrox ne Sodium ne Sodium ine Sodium 25 MCG 25 MCG 25 MCG Vitamin B Vitamin B No Vitamin B 12 100 MCG 12 100 MCG 12 100 MCG Atenolol 50 Atenolol 50 No 1{table QD Atenolol MG MG t} 50 MG Montelukast Montelukast No 1{table QD Montelukas Sodium 10 Sodium 10 t} t Sodium MG MG 10 MG Gabapentin Gabapentin No 1{capsu QD Gabapentin 300 MG 300 MG le} 300 MG Vitamin D-3 Vitamin D-3 No Vitamin 5000 UNIT 5000 UNIT D-3 5000 UNIT Aspir-81 Aspir-81 No Aspir-81 Viteyes Viteyes No Viteyes AREDS AREDS AREDS Formula - Formula - Formula - methylPREDN methylPREDN No methylPRED ISolone 4 ISolone 4 NISolone 4 MG MG MG Levothyroxi Levothyroxi No QD Levothyrox ne Sodium ne Sodium ine Sodium 25 MCG 25 MCG 25 MCG Vitamin B Vitamin B No Vitamin B 12 100 MCG 12 100 MCG 12 100 MCG Immunizations Ordered Immunization Filled Immunization Date Status Commen ts Source Name Name [id number] Completed Riley rial [id number] 00:00:00 Kim fernandez [id number] 2020-12-07 Completed Riley rial [id number] 00:00:00 Favian [id number] Completed Riley ria NA-[id number] 00:00:00 Favian [id number] 2020-03-16 Completed Riley rial [id number] 00:00:00 Favian Vital Signs Vital Name Observation Time Observation Value Comments Source height 2022-01-03 13:15:00 59 [in_i] [facility] weight 2022-01-03 13:15:00 150 [lb_av] [facility] temperature 2022-01-03 13:15:00 97.3 [degF] [facility] bmi 2022-01-03 13:15:00 30.29 kg/m2 [facility] oximetry 2022-01-03 13:15:00 97 % [facility] respiratory rate 2022-01-03 13:15:00 18 /min Comm on [facility] blood pressure 2022-01-03 13:15:00 132 mm[Hg] Common [facility] - systolic [facility] blood pressure 2022-01-03 13:15:00 68 mm[Hg] Common [facility] - diastolic [facility] height 2021-10-09 13:00:00 59 [in_i] [facility] weight 2021-10-09 13:00:00 148 [lb_av] [facility] temperature 2021-10-09 13:00:00 97.2 [degF] Common [facility] bmi 2021-10-09 13:00:00 29.89 kg/m2 [facility] oximetry 2021-10-09 13:00:00 98 % [facility] respiratory rate 2021-10-09 13:00:00 16 /min Comm on [facility] blood pressure 2021-10-09 13:00:00 164 mm[Hg] Common [facility] - systolic [facility] blood pressure 2021-10-09 13:00:00 84 mm[Hg] [facility] - diastolic [facility] height 2021-04-04 11:00:00 59 [in_i] Common S pirit - [facility] weight 2021-04-04 11:00:00 140 [lb_av] Common S pirit - [facility] bmi 2021-04-04 11:00:00 28.27 kg/m2 Common S pirit - [facility] blood pressure 2021-04-04 11:00:00 135 mm[Hg] Common [facility] - systolic [facility] blood pressure 2021-04-04 11:00:00 85 mm[Hg] [facility] - diastolic [facility] Systolic (mm Hg) 2021-10-24 14:49:00 Riley rial Favian Diastolic (mm Hg) 2021-10-24 14:49:00 Mem orial Favian Heart Rate 2021-10-24 14:49:00 [facility] Respitory Rate 2021-10-24 14:49:00 Memori al [place] Height 2021-10-24 14:49:00 149.86 cm [facility] Weight 2021-10-24 14:49:00 [facility] BMI Calculated 2021-10-24 14:49:00 Memori al Favian Systolic (mm Hg) 2021-01-25 15:38:00 Riley rial Favian Diastolic (mm Hg) 2021-01-25 15:38:00 Mem orial Keyes Heart Rate 2021-01-25 15:38:00 [facility] Respitory Rate 2021-01-25 15:38:00 Memori al Favian Height 2021-01-25 15:38:00 147.32 cm [facility] Weight 2021-01-25 15:38:00 [facility]avian BMI Calculated 2021-01-25 15:38:00 Memori al Keyes Systolic (mm Hg) 2019-07-21 14:59:00 Riley rial Favian Diastolic (mm Hg) 2019-07-21 14:59:00 Mem orial Keyes Heart Rate 2019-07-21 14:59:00 [facility] [place] Respitory Rate 2019-07-21 14:59:00 Memori al Favian Height 2019-07-21 14:59:00 149.86 cm [facility] Weight 2019-07-21 14:59:00 [facility] BMI Calculated 2019-07-21 14:59:00 Memori al Favian Temperature Oral (F) 2019-07-21 14:59:00 97.5 F [facility] Systolic (mm Hg) 2018-11-12 18:19:00 Riley rial Favian Diastolic (mm Hg) 2018-11-12 18:19:00 Mem orial [place] Heart Rate 2018-11-12 18:19:00 [facility] [place] Respitory Rate 2018-11-12 18:19:00 Memori al Favian Height 2018-11-12 18:19:00 149.86 cm [facility] [place] Weight 2018-11-12 18:19:00 [facility] [place] BMI Calculated 2018-11-12 18:19:00 Memori al Favian Heart Rate 2017-03-19 16:07:00 [facility] Temperature Oral (F) 2017-03-19 16:07:00 97 F [facility] Systolic (mm Hg) 2017-03-19 16:07:00 Riley rial Keyes Diastolic (mm Hg) 2017-03-19 16:07:00 Mem orial Favian Weight 2017-03-19 16:07:00 [facility] [place] BMI Calculated 2017-03-19 16:07:00 Memori al Favian Height 2017-03-19 16:07:00 154.94 cm [facility] Procedures Procedure Date / Time Performed Performing Clinician Philippe e Hx of knee surgery [facility] Herm rebecca Acid reflux [facility] Cataracts [facility] Craniotomy [facility] Cystocele [facility] H/O: hysterectomy [facility] Radha nn Hip replacement [facility] Favian Encounters Start End Encounter Admission Attending Care Care Encounter Source Date/Time Date/Time Type Type Clinicians Facility Department ID 2022-04-09 Outpatient Martin, [facility] [id number] Common 12:59:00 Fercho [id number] [facility] 2021-10-09 Outpatient Martin, [facility] [id number] Common 12:51:00 Fercho [facility] 2021-03-15 Outpatient Martin, [facility] [id number] Common 13:47:41 Fercho [id number] [facility] 2021-03-15 Outpatient Martin, STLMLC STLMLC [id number] Common 11:32:23 Fercho [id number] [facility] 2021-03-15 Outpatient Martin, STLMLC STLMLC [id number] Common 11:02:43 Fercho [id number] [facility] 2022-07-24 2022-07-24 Outpatient MHIE IE [id number] Memoria 10:15:00 10:15:00 17 wilfredo Ballesteros 2022-01-04 2022-01-04 (TEL) STLMLC STLMLC [id number] Co mmon 00:00:00 00:00:00 [facility] 2022-01-03 2022-01-03 OFFICE STLMLC STLMLC [id number] Co mmon 00:00:00 00:00:00 VISIT [facility] PT - CHI LEVEL 2 [facility] 2021-11-14 2021-11-14 (TEL) STLMLC STLMLC [id number] Co mmon 00:00:00 00:00:00 [facility] 2021-10-24 2021-10-25 Outpatient nullFlavo MNA [id number] Memoria 14:45:00 04:59:59 r Neurology 16 wilfredo [place] 2021-10-24 2021-10-24 Outpatient CARMELITA BalbuenaMISCHVANESSA [id number] 09:45:00 23:59:59 Sammy 16 Lorenzo 2021-10-24 2021-10-24 Outpatient MHIE IE [id number] Memoria 09:45:00 09:45:00 16 l Favian 2021-10-09 2021-10-09 OFFICE STLMLC STLMLC [id number] Co mmon 00:00:00 00:00:00 VISIT [facility] PT - CHI LEVEL 4 [facility] 2021-10-02 2021-10-02 (TEL) STLMLC STLMLC [id number] Co mmon 00:00:00 00:00:00 [facility] 2021-04-12 2021-04-12 (TEL) STLMLC STLMLC [id number] Co mmon 00:00:00 00:00:00 [facility] 2021-04-04 2021-04-04 OFFICE STLMLC STLMLC [id number] Co mmon 00:00:00 00:00:00 VISIT [facility] PT LEVEL [address] [place] [address] 2021-01-25 2021-01-26 Outpatient nullFlavo MNA [id number] Memoria 15:45:00 05:59:59 r Neurology 15 l Goodhue Keyes 2021-01-25 2021-01-25 Outpatient BERONICA BalbuenaSCHER MISCHER [id number] 09:45:00 23:59:59 Sammy 15 Lorenzo 2021-01-25 2021-01-25 Outpatient MHIE MHIE [id number] Memoria 09:45:00 09:45:00 15 wilfredo AlvarezKeyes 2020-12-22 2020-12-22 (TEL) STLMLC STLMLC [id number] Co mmon 00:00:00 00:00:00 [facility] 2020-05-24 2020-05-24 Outpatient STLMLC STLMLC [id number] Common 00:00:00 00:00:00 [facility] 2020-04-20 2020-04-21 Outpatient nullFlavo MNA [id number] Memoria 15:45:00 05:59:59 r Neurology 14 l Goodhue Keyes 2020-04-20 2020-04-20 Outpatient CARMELITA BalbuenaSCHER [id number] 09:45:00 23:59:59 Sammy 14 Lorenzo 2020-04-20 2020-04-20 Ambulatory nullFlavo MNA [id number] Memoria 15:45:00 15:45:00 Pre-Reg r Neurology 13 l Franklin Ballesteros 2020-04-20 2020-04-20 Outpatient MHIE MHIE [id number] Memoria 09:45:00 09:45:00 14 wilfredo Ballesteros 2020-04-20 2020-04-20 Outpatient MHIE MHIE [id number] Memoria 09:45:00 09:45:00 13 wilfredo Ballesteros 2020-04-20 2020-04-20 Outpatient Krell, [facility] [id number] 09:45:00 09:45:00 Sammy Ventura 2020-04-18 2020-04-18 Outpatient STLMLC STLMLC [id number] Common 00:00:00 00:00:00 [facility] 2020-03-07 2020-03-07 Outpatient STLMLC STLMLC [id number] Common 00:00:00 00:00:00 [facility] 2020-01-22 2020-01-22 Outpatient STLMLC STLMLC [id number] Common 00:00:00 00:00:00 [facility] 2020-01-08 2020-01-08 Outpatient STLMLC STLMLC [id number] Common 00:00:00 00:00:00 [facility] 2019-10-08 2019-10-08 [facility] [id number] Common 13:58:00 13:58:00 t Specialty/U Sp jose Specialty rology - [facility] /Urology Clinic [facility] 2019-10-05 2019-10-05 [facility] [id number] Common 11:30:00 11:30:00 t Specialty/U Sp jose Specialty rology - [facility]I /Urology Clinic [facility] 2019-09-21 2019-09-21 [facility] [id number] Common 14:34:00 14:34:00 t Specialty/U Sp jose Specialty rology - CHI /Urology Clinic [facility] 2019-09-09 2019-09-09 [facility] [id number] Common 11:00:00 11:00:00 t Specialty/U Sp jose Specialty rology - [facility]I /Urology Clinic [facility] 2019-09-01 2019-09-01 [facility] [id number] Common 13:10:00 13:10:00 t Specialty/U Sp jose Specialty rology - CHI /Urology Clinic [facility] 2019-07-21 2019-07-22 Outpatient nullFlavo MNA [id number] Memoria 14:45:00 04:59:59 r Neurology 12 l Franklin Ballesteros 2019-07-21 2019-07-21 [facility] [id number] 09:45:00 23:59:59 Sammy Ventura 2019-07-21 2019-07-21 Outpatient [facility] [id number] 09:45:00 12 wilfredo Ballesteros 2019-07-15 2019-07-15 Outpatient Celine Prescott [id number] Common 11:00:00 11:00:00 t Specialty/U Sp jose Specialty rology - CHI /Urology Clinic [facility] 2019-05-12 2019-05-12 Outpatient Celine Bergert [id number] Common 08:50:00 08:50:00 t Specialty/U Sp jose Specialty rology - CHI /Urology Clinic [facility] 2019-04-20 2019-04-20 Outpatient Celine Bergert [id number] Common 11:14:00 11:14:00 t Specialty/U Sp jose Specialty rology - CHI /Urology Clinic [facility] 2019-04-16 2019-04-16 Outpatient Celine Bergert [id number] Common 10:30:00 10:30:00 t Specialty/U Sp jose Specialty rology - CHI /Urology Clinic [facility] 2019-03-12 2019-03-12 Outpatient Celine Bergert [id number] Common 11:03:00 11:03:00 t Specialty/U Sp jose Specialty rology - CHI /Urology Clinic [facility] 2019-03-05 2019-03-05 Outpatient Celine Bergert [id number] Common 13:06:00 13:06:00 t Specialty/U Sp jose Specialty rology - CHI /Urology Clinic [facility] 2019-01-06 2019-01-06 [place] [facility] [id number] Common 08:15:00 08:15:00 t Specialty/U Sp jose Specialty rology - CHI /Urology Clinic [facility] 2019-01-02 2019-01-02 Outpatient Celine Bergert [id number] Common 14:30:00 14:30:00 t Specialty/U Sp jose Specialty rology - CHI /Urology Clinic [facility] 2018-12-15 2018-12-15 [facility] [id number] Common 10:18:00 10:18:00 t Specialty/U Sp jose Specialty rology - CHI /Urology Clinic [facility] 2018-11-17 2018-11-17 [facility] [place] [id number] Common 14:29:00 14:29:00 t Specialty/U Sp jose Specialty rology - [facility]I /Urology Clinic [facility] 2018-11-13 2018-11-13 [facility] [id number] Common 11:00:00 11:00:00 t Specialty/U Sp jose Specialty rology - [facility] 2018-11-12 2018-11-13 Outpatient nullFlavo MNA [id number] Memoria 18:00:00 04:59:59 r Neurology 11 l Franklin Ballesteros 2018-11-12 2018-11-12 Outpatient CARMELITA BalbuenaSCHVANESSA [id number] 13:00:00 23:59:59 Sammy 11 Lorenzo 2018-11-12 2018-11-12 Outpatient MHIE MHIE [id number] Memoria 13:00:00 13:00:00 11 l Keyes 2018-11-11 2018-11-11 Ambulatory nullFlavo MNA [id number] Memoria 18:00:00 18:00:00 Pre-Reg r Neurology 09 l Franklin Alvarezann 2018-11-11 2018-11-11 Outpatient MHIE MHIE [id number] Memoria 13:00:00 13:00:00 09 wilfredo Keyes 2018-11-11 2018-11-11 [id number] 13:00:00 13:00:00 Sammy 09 Lorenzo 2018-11-11 2018-11-11 Outpatient [place] [id number] Common 08:25:00 08:25:00 t Specialty/U Sp jose Specialty rology - [facility] 2018-11-07 2018-11-07 Outpatient Celine [place]os[place] [id number] Common 14:15:00 14:15:00 t Specialty/U Sp jose Specialty rology - [facility] 2018-10-13 2018-10-13 Outpatient Celine Cano [id number] Common 15:36:00 15:36:00 t Specialty/U Sp jose Specialty rology - [facility] 2018-10-13 2018-10-13 Outpatient Celine Prescott [id number] Common 14:15:00 14:15:00 t Specialty/U Sp jose Specialty rology - [facility] 2018-05-27 2018-05-27 Ambulatory nullFlavo MNA [id number] Memoria 13:30:00 13:30:00 Pre-Reg r Neurosurger 10 l y [facility] 2018-05-27 2018-05-27 Outpatient MHIE MHIE [id number] Memoria 08:30:00 08:30:00 10 wilfredo Favian 2018-05-27 2018-05-27 Outpatient Sarah Beth, MHMISCHER MHMISCHER [id number] 08:30:00 08:30:00 Seng Mclean 10 2018-02-13 2018-02-15 Outside nullFlavo MNA [id number] Memoria 21:42:00 05:59:59 Medical r Neurology 07 l Records Goodhue Keyes 2018-02-13 2018-02-14 Outpatient MHMISCHER MHMISCHER [id number] 15:42:00 23:59:59 07 2017-11-14 2017-11-14 Outpatient MHIE MHIE [id number] Memoria 13:30:00 13:30:00 08 wilfredo Keyes 2017-03-19 2017-03-20 Outpatient nullFlavo MNA [id number] Memoria 15:45:00 05:59:59 r Neurosurger 05 l y [facility] 2017-03-19 2017-03-19 Outpatient Sarah Beth, MHMISCHER MHMISCHER [id number] 09:45:00 23:59:59 Seng Mclean 2017-03-19 2017-03-19 Outpatient MHIE MHIE [id number] Memoria 09:45:00 09:45:00 05 wilfredo Ballesteros 2017-03-07 2017-03-07 Outpatient MHIE MHIE [id number] Memoria 09:30:00 09:30:00 06 wilfredo Ballesteros 2017-03-07 2017-03-07 Outpatient MHIE MHIE [id number] Memoria 09:30:00 09:30:00 07 wilfredo Ballesteros 2016-03-27 2016-03-27 Outpatient MHIE MHIE [id number] Memoria 09:45:00 09:45:00 04 wilfredo Ballesteros 2015-07-12 2015-07-13 Outpt Diag nullFlavo [facility] [id number] Memoria 14:14:00 04:59:00 Services r Outpatient 00 wilfredo Higuera 2015-07-12 2015-07-12 Outpatient [place], [place] [id number] 09:14:00 23:59:00 Sengluis antonio Mcgarry 2015-07-12 2015-07-12 Outpatient MHIE MHIE [id number] Memoria 12:00:00 12:00:00 03 wilfredo Ballesteros 2015-07-12 2015-07-12 Outpatient MHIE MHIE [id number] Memoria 12:00:00 12:00:00 02 wilfredo Ballesteros 2015-07-05 2015-07-05 Outpatient MHIE MHIE [id number] Memoria 14:00:00 14:00:00 01 wilfredo Ballesteros Results This patient has no known results.
[2022-04-27] MEDS ORDERED: NA CHLORIDE 0.9% 1,000 ML ONE (21:17)
[2022-04-27 22:02] LABS: Absolute Lymphocytes (CBC) 1.5 K/uL (0.7-4.9); Hematocrit 41.5 % (36.0-45.0); Lymphocytes % 28.7 % (15.3-44.8); MCV 93.1 fL (80-100); MPV 9.1 fL (7.6-11.3); RBC Red Blood Cell Count 4.45 M/uL (3.86-4.86)
[2022-04-27 22:13] LABS: Protime INR 1.02
--- NOTE | 2022-04-27 22:16 | RAD REPORT ---
EXAM DESCRIPTION: CT - Head Brain Wo Cont - 04/27/2022 9:33 pm CLINICAL HISTORY: HEADACHE COMPARISON: Head angio dated 08/11/2018; Head Brain Wo Cont dated 08/11/2018 TECHNIQUE: Noncontrast head CT images ad were obtained without IV contrast. Multiplanar reformats we re generated and reviewed. All CT scans are performed using dose optimization technique as appropriate and may include automated exposure control or mA/KV adjustment according to patient size. FINDINGS: No intracranial hemorrhage, mass, or edema. Partially empty sella again noted. Midline str uctures are otherwise unremarkable. Stable ventricular caliber, with mild volume loss. Sequelae of right frontal craniotomy, and aneurysm clipping at the anterior interhemispheric fissure. Small regions of encephalomalacia bilateral frontal regions, stable. Right frontal extraaxial mass m easuring 1.9 cm, decreased in size for 2.6 cm on the prior exam. This may represent a thrombosed aneu rysm. Avalos-white matter differentiation is preserved, without evidence of acute infarct. No abnormal extra- axial fluid collections. Mastoid air cells and visualized portions of the paranasal sinuses are clear. No acute bony findings. IMPRESSION: No evidence of an acute intracranial process. Right frontal extraaxial mass measuring 1.9 cm, decreased in size for 2.6 cm on the prior exam, which may represent a thrombosed aneurysm. Other stable chronic findings as above.
--- NOTE | 2022-04-27 22:16 | RAD REPORT ---
EXAM DESCRIPTION: RADChest Single View04/27/2022 9:30 pm CLINICAL HISTORY: DYSPNEA COMPARISON: Chest Pa And Lat (2 Views) dated 04/24/2022; Abdomen 1 View (KUB) dated 10/16/2021; Chest S akiko View dated 08/23/2018; Chest Single View dated 08/18/2018 TECHNIQUE: Portable AP view of the chest. FINDINGS: The lungs are clear. No pneumothorax or effusion. The cardiomediastinal contours are unrem arkable. IMPRESSION: No acute cardiopulmonary process.
[2022-04-27 22:24] LABS: Albumin 3.8 g/dL (3.4-5.0); Bilirubin Direct 0.2 mg/dL (0-0.2); Bilirubin Total 0.4 mg/dL (0.2-1.0); Magnesium 2.4 mg/dL (1.6-2.4); Potassium 3.8 mmol/L (3.5-5.1); Protein, Total 7.8 g/dL (6.4-8.2)
[2022-04-27 22:38] LABS: SARS-COV-2 RT PCR NEGATIVE (NEGATIVE)
--- NOTE | 2022-04-28 01:43 | P.HP ---
Certification for Inpatient Patient admitted to: Observation With expected LOS: <2 Midnights Patient will require the following post-hospital care: None Practitioner: I am a practitioner with admitting privileges, knowledge of patient current condition, hospital course, and medical plan of care. Services: Services provided to patient in accordance with Admission requirements found in Title 42 Section 412.3 of the Code of Federal Regulations Patient History Date of Service: 04/28/22 Primary Care Provider: Veronica Reason for admission: Dyspnea History of Present Illness: Patient is an 87 year old female with hypothyroidism, COPD, and history of ruptured brain aneursym who presented to the emergency department with complaints of headache and shortness of breath for about 2 weeks now. Vital signs stable upon arrival. Labs significant for ddimer 539, sodium 132, chloride 93, CO2 33, BNP 489. covid/flu negative. Venous US showed "Occlusive DVT involving the left posterior tibial vein." Chest CTA negative for PE. She was treated with full dose lovenox in the emergency department. ED provider wishes to admit patient for observation. Allergies phenytoin sodium [From Dilantin] Allergy (Verified 12/02/17 10:19) Anaphylaxis phenytoin sodium extended [From Dilantin] Allergy (Verified 12/02/17 10:19) Anaphylaxis Home Medications: Gabapentin 300 mg PO DAILY 08/13/18 Montelukast [Singulair*] 10 mg PO DAILY 08/13/18 atenoloL [Tenormin*] 50 mg PO DAILY 08/13/18 Meropenem [Merrem 500 MG/100 ML NS IVPB] 500 mg IV Q8H 14 Days #1 bag 08/14/18 - Past Medical/Surgical History Diabetic: No -: Brain aneurysm -: Hypothyroidism -: COPD -: History of ruptured brain aneurysm -: Hysterectomy -: Tonsillectomy -: Bilateral knee surgery -: Cystocele/rectocele -: R frontal crainiotomy with clipping of aneursym 1981 Psychosocial/ Personal History: She is . Her is currently in the shelter due to dementia. She has 2 children. 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 - Family History Mother -: Hypertension - Social History Smoking Status: Former smoker Alcohol use: No CD- Drugs: No Caffeine use: Yes Place of Residence: Home Review of Systems Respiratory: Shortness of Breath Musculoskeletal: Leg Pain Integumentary: Other (Headache) Physical Examination - Vital Signs Temperature: 98.2 F Blood Pressure: 140/58 Pulse: 50 Respirations: 20 Pulse Ox (%): 100 - Physical Exam General: Alert, In no apparent distress HEENT: Atraumatic, EOMI, Sclerae nonicteric Neck: Supple, 2+ carotid pulse no bruit Respiratory: Clear to auscultation bilaterally, Normal air movement Cardiovascular: Regular rate/rhythm, Normal S1 S2 Gastrointestinal: Normal bowel sounds, No tenderness Musculoskeletal: No tenderness Integumentary: No rashes Neurological: Normal gait, Normal speech, Normal affect - Studies Laboratory Data (last 24 hrs) 04/27/22 21:45: PT 11.2, INR 1.02 04/27/22 21:45: WBC 5.10, Hgb 13.9, Hct 41.5, Plt Count 184 04/27/22 21:45: Sodium 132 L, Potassium 3.8, BUN 8, Creatinine 0.75, Glucose 98, Magnesium 2.4, Total Bilirubin 0.4, AST 20, ALT 19, Alkaline Phosphatase 73, Lipase 42 Assessment and Plan - Problems (Diagnosis) (1) DVT (deep venous thrombosis) Current Visit: Yes Status: Acute Qualifiers: DVT location: lower extremity Affected thrombotic vein of extremity: tibial Chronicity: acute Laterality: left Qualified Code(s): I82.442 - Acute embolism and thrombosis of left tibial vein (2) Anemia Current Visit: Yes Status: Chronic Qualifiers: Anemia type: unspecified type Qualified Code(s): D64.9 - Anemia, unspecified (3) COPD (chronic obstructive pulmonary disease) Current Visit: Yes Status: Chronic Qualifiers: COPD type: unspecified COPD Qualified Code(s): J44.9 - Chronic obstructive pulmonary disease, unspecified (4) Hypertension Current Visit: Yes Status: Chronic Qualifiers: Hypertension type: primary hypertension Qualified Code(s): I10 - Essential (primary) hypertension (5) Hypothyroidism Current Visit: Yes Status: Chronic Qualifiers: Hypothyroidism type: unspecified Qualified Code(s): E03.9 - Hypothyroidism, unspecified - Plan Patient is admitted for observation for dyspnea/weakness with occlusive DVT involving the left posterior tibial vein. She reports some dyspnea but no hypoxia, no tachypnea, no PE. Continue full dose lovenox. Dispo with eliquis or xarelto. Echo ordered for the morning although unsure if it will be done this weekend. Monitor pulse oximetry. Reconcile and continue home medications. Discharge Plan: Home Plan to discharge in: 24 Hours - Advance Directives Does patient have a Living Will: Yes Does patient have a Durable POA for Healthcare: No - Code Status/Comfort Care Code Status Assessed: Yes Code Status: Full Code Physician Review: Patient Assessed, Agree with Above Assessment and Plan Critical Care: No Time Spent Managing Pts Care (In Minutes): 50
[2022-04-28] MEDS ORDERED: ENOXAPARIN 80 MG/0.8 ML SQ ONE (02:02)
[2022-04-28] MEDS ORDERED: FAMOTIDINE 20 MG/2 ML VIAL IV ONE (02:02)
[2022-04-28] MEDS ORDERED: ONDANSETRON 4 MG/2 ML VIAL IV PRN (02:37)
[2022-04-28] MEDS ORDERED: ALBUTEROL 2.5 MG/3 ML NEB SOL NEB PRN (02:37)
[2022-04-28] MEDS ORDERED: ACETAMINOPHEN 500 MG TAB PO PRN (02:37)
[2022-04-28 03:14] VITALS: BMI 28.8
[2022-04-28 05:29] LABS: Phosphorus 3.3 mg/dL (2.5-4.9); Potassium 3.7 mmol/L (3.5-5.1)
[2022-04-28] MEDS ORDERED: POTASSIUM CL SA 10 MEQ TAB PO ONE (09:00)
[2022-04-28 09:05] LABS: Specific Gravity 1.029 (1.005-1.030); Urine Bilirubin NEGATIVE (Negative); Urine Blood Negative (Negative); Urine Clarity Clear (Clear); Urine Color Colorless (Yellow); Urine Glucose NEGATIVE (Negative); Urine Protein NEGATIVE (Negative); Urine Urobilinogen Normal (Normal); Urine pH 7.5 (5.0-7.0)
[2022-04-28 09:59] VITALS: O2SAT 97
[2022-04-28] MEDS ORDERED: APIXABAN 2.5 MG TABLET PO SCH ×2 (11:03→18:00)
[2022-04-28 15:57] VITALS: BP 207/78
[2022-04-28] MEDS ORDERED: cloNIDine HCL 0.1 MG TAB PO ONE (16:00)
--- NOTE | 2022-04-28 17:14 | P.DS ---
Discharge Date: 04/28/22 Primary Care Provider: Veronica Disposition: ROUTINE DISCHARGE Discharge Condition: GOOD Reason for Admission: Dyspnea Brief History of Present Illness: Patient is an 87 year old female with hypothyroidism, COPD, and history of ruptured brain aneursym who presented to the emergency department with complaints of headache and shortness of breath for about 2 weeks now. Vital signs stable upon arrival. Labs significant for ddimer 539, sodium 132, chloride 93, CO2 33, BNP 489. covid/flu negative. Venous US showed "Occlusive DVT involving the left posterior tibial vein." Chest CTA negative for PE. She was treated with full dose lovenox in the emergency department. ED provider wishes to admit patient for observation. Hospital Course: Patient is clinically doing well. She wants to go home today. We have gone ahead and call in Eliquis 2.5 mg p.o. twice a day. We will also try to get her blood pressure better controlled by adding amlodipine and losartan along with the atenolol. At this time, patient is doing well and she is stable for discharge. We did tell her of the slightly increased risk of intracranial hemorrhage compared to the normal population, while being on a blood thinner as she had a prior history of a ruptured aneurysm. However, in the setting of an active DVT we will probably go ahead and treat her for 2 to 3 months. After 3 months she needs to discontinue it as long as there is no further blood clots on ultrasound which will need to be done as an outpatient. At this time patient is stable for discharge home. Vital Signs/Physical Exam: Temp Pulse Resp BP Pulse Ox 97.1 F 57 18 207/78 H 98 04/28/22 12:00 04/28/22 15:56 04/28/22 12:00 04/28/22 15:56 04/28/22 12:00 General: Alert, In no apparent distress, Oriented x3 Laboratory Data at Discharge: WBC 5.10 K/uL (4.3-10.9) 04/27/22 21:45 Hgb 13.9 g/dL (12.0-15.0) 04/27/22 21:45 Hct 41.5 % (36.0-45.0) 04/27/22 21:45 Plt Count 184 K/uL (152-406) 04/27/22 21:45 PT 11.2 SECONDS (9.5-12.5) 04/27/22 21:45 INR 1.02 04/27/22 21:45 Sodium 135 mmol/L (136-145) L 04/28/22 04:55 Potassium 3.7 mmol/L (3.5-5.1) 04/28/22 04:55 BUN 8 mg/dL (7-18) 04/28/22 04:55 Creatinine 0.62 mg/dL (0.55-1.02) 04/28/22 04:55 Glucose 90 mg/dL (74-106) 04/28/22 04:55 Phosphorus 3.3 mg/dL (2.5-4.9) 04/28/22 04:55 Magnesium 2.4 mg/dL (1.6-2.4) 04/27/22 21:45 Total Bilirubin 0.4 mg/dL (0.2-1.0) 04/27/22 21:45 AST 20 U/L (15-37) 04/27/22 21:45 ALT 19 U/L (13-56) 04/27/22 21:45 Alkaline Phosphatase 73 U/L (45-117) 04/27/22 21:45 Lipase 42 U/L (13-75) 04/27/22 21:45 Home Medications: Gabapentin 300 mg PO DAILY 08/13/18 Montelukast [Singulair*] 10 mg PO DAILY 08/13/18 atenoloL [Tenormin*] 50 mg PO DAILY 08/13/18 Meropenem [Merrem 500 MG/100 ML NS IVPB] 500 mg IV Q8H 14 Days #1 bag 08/14/18 Amlodipine [Norvasc*] 10 mg PO DAILY #30 tab 04/28/22 Apixaban [Eliquis *] 2.5 mg PO BID #60 tab 04/28/22 Losartan Potassium [Cozaar*] 50 mg PO BID #60 tablet 04/28/22 New Medications: Losartan Potassium [Cozaar*] 50 mg PO BID #60 tablet Apixaban [Eliquis *] 2.5 mg PO BID #60 tab Amlodipine [Norvasc*] 10 mg PO DAILY #30 tab Physician Discharge Instructions: -DC IV and DC home -Follow-up with PCP in 1 to 2 weeks -Follow-up with Cardiology in 1 to 2 weeks -Please call Dr. Figueroa at [phone] if any questions regarding hospital stay -Please call nursing station at [phone] if any nursing or medication questions -Return to the emergency room if symptoms worsen Diet: AHA Activity: Fall precautions Followup: Fercho Martin MD [Primary Care Provider] - Time spent managing pt's care (in minutes): 35
[2022-04-28 17:54] VITALS: TEMP 97
--- NOTE | 2022-04-28 21:55 | RAD REPORT ---
EXAM DESCRIPTION: US - Extrem Venous W Compress Freeman - 04/28/2022 12:22 am CLINICAL HISTORY: Pain;Swelling TECHNIQUE: Real-time duplex ultrasound scan of the bilateral lower extremity veins integrating B-mod e two-dimensional vascular structure, Doppler spectral analysis, color flow Doppler imaging and compr ession. COMPARISON: No relevant prior studies available. FINDINGS: Right deep veins: Unremarkable. No DVT in the right common femoral, femoral, proximal deep femoral, popliteal or visualized calf veins. The veins demonstrate normal color flow, are norm ally compressible, with normal phasic flow and/or augmentation response. Right superficial veins: Unremarkable. No thrombus in the visualized right great saphenous vein. Left deep veins: Intraluminal thrombus with lack of compressibility and flow involving the left pos terior tibial vein at the mid to lower calf and ankle. No DVT in the right common femoral, femoral, proximal deep femoral, or popliteal veins. The veins demonstrate normal color flow, are normally c ompressible, with normal phasic flow and/or augmentation response. Left superficial veins: Unremarkable. No thrombus in the visualized left great saphenous vein. Soft tissues: No acute findings. No popliteal cyst. IMPRESSION: 1. Occlusive DVT involving the left posterior tibial vein. 2. No evidence for right lower extremity deep venous thrombosis. THIS REPORT CONTAINS FINDINGS THAT MAY BE CRITICAL TO PATIENT CARE: The findings were verbally discu ssed via telephone conference with Dr. Jimmy Richards on 04/28/2022 12:44 AM SUPERVISOR BONDING. The results were ack nowledged and understood. Electronically signed by: Dwain Barber MD 04/28/2022 12:44 AM SUPERVISOR BONDING Due to temporary technical issues with the PACS/Fluency reporting system, reports are being signed by the in house radiologists without review as a courtesy to insure prompt reporting. The interpreting radiologist is fully responsible for the content of the report.
--- NOTE | 2022-04-28 21:57 | RAD REPORT ---
EXAM DESCRIPTION: CT - Chest For Pe Angio - 04/28/2022 2:59 am CLINICAL HISTORY: The patient is 87 years old and is Female; Dyspnea;PE TECHNIQUE: Axial computed tomographic angiography images of the chest with intravenous contrast. S agittal and coronal reformatted images were created and reviewed. This CT exam was performed using one or more of the following dose reduction techniques: automated exposure control, adjustment of t he mA and/or kV according to patient size, and/or use of iterative reconstruction technique. MIP re constructed images were created and reviewed. COMPARISON: No relevant prior studies available. FINDINGS: Pulmonary arteries: Unremarkable. No pulmonary embolism. Aorta: Scattered atherosclerotic vascular calcifications. No thoracic aortic aneurysm. Lungs: Unremarkable. No mass. No consolidation. Pleural space: Unremarkable. No significant effusion. No pneumothorax. Heart: Unremarkable. No cardiomegaly. No significant pericardial effusion. No evidence of RV dysfunction. Bones/joints: No acute fracture. No dislocation. Soft tissues: Unremarkable. Lymph nodes: Unremarkable. No enlarged lymph nodes. Other findings: Disc space narrowing with degenerative endplate changes in the spine. IMPRESSION: No acute finding in the chest. No evidence of pulmonary embolism. Electronically signed by: Pradip Ramirez MD 04/28/2022 12:09 AM CURATOR OF PHOTOGRAPHY AND PRINTS Due to temporary technical issues with the PACS/Fluency reporting system, reports are being signed by the in house radiologists without review as a courtesy to insure prompt reporting. The interpreting radiologist is fully responsible for the content of the report.
[2022-04-29] MEDS ORDERED: atenoloL 50 MG TAB PO SCH (09:00)
--- NOTE | 2022-04-30 13:10 | EKG ---
Test Date: 2022-04-27 Test Time: 21:01:24 Risk Control Field Representative: LORETTA MEASUREMENT RESULTS: Intervals: Rate: 54 PA: 204 QRSD: 80 QT: 426 QTc: 403 [place]: P: 47 PA: 204 QRS: -22 T: 30 INTERPRETIVE STATEMENTS: Sinus bradycardia with sinus arrhythmia Otherwise normal ECG Compared to ECG 04/27/2022 21:00:27 No significant changes Electronically Signed On 04-30-22 13:05:55 CDT by John Lincoln
--- NOTE | 2022-04-30 13:10 | EKG ---
Test Date: 2022-04-27 Test Time: 21:00:27 Mapping Editor: MEASUREMENT RESULTS: Intervals: Rate: 54 [place]: 202 QRSD: 76 QT: 418 QTc: 396 [place]: P: 43 [place]: 202 QRS: -24 T: 34 INTERPRETIVE STATEMENTS: Poor data quality, interpretation may be adversely affected Sinus bradycardia Otherwise normal ECG Compared to ECG 08/13/2018 12:46:59 Fusion complex(es) no longer present Ventricular premature complex(es) no longer present Left ventricular hypertrophy no longer present Myocardial infarct finding no longer present Electronically Signed On 04-30-22 13:05:57 CDT by John Lincoln
== END 2022-04-28 18:19 | disposition home or self-care (01) ==
LOC: ER 20:21 → ERHOLD 04-28 01:37 → 2ND 04-28 02:11
PROVIDERS: ADMIT Hospitalist; ATTEND Hospitalist
DX: R06.00 Dyspnea, unspecified (principal); E03.9 Hypothyroidism, unspecified; J44.9 Chronic obstructive pulmonary disease, unspecified; R51.9 Headache, unspecified; R06.02 Shortness of breath; I82.442 Acute embolism and thrombosis of left tibial vein; D64.9 Anemia, unspecified; I10 Essential (primary) hypertension; Z88.8 Allergy status to other drugs, medicaments and biological substances; Z87.891 Personal history of nicotine dependence; Z20.822 Contact with and (suspected) exposure to COVID-19
CPT/HCPCS: 85025; 80048 ×2; 36415; 83735; 84100; 85610; 85379; 80076; 81003; 84484; 83690; 83880; 0240U; 70450; 71275; 71045; 93970; 97116; 97161; 94760; 96372; 96374; 99285; Q9967; J7030; 93005

== ENCOUNTER 2022-11-07 15:37 | Observation (INO) | payer OTHER ==
--- OUTSIDE RECORDS SUMMARY | 2022-11-07 15:42 | XMS REPORT | Continuity of Care Document ---
:1935 Author Organization [facility] t Address [address] [facility]. 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, ANEURYSM, 00:01: Herm rebecca NONRUPTURE NONRUPTURE 00 D D Active 02/22/2017 GEE Johansen I67.1 - I67.1 - Diagnosis Active 2015-022016-02-24 Memoria "CEREBRAL "CEREBRAL - 16:14:00 l ANEURYSM, ANEURYSM, 00:01: Herm rebecca NONRUPTURE NONRUPTURE 00 D" D" Active 12/22/2015 GEE Ballesteros Incontinen Incontinen Problem C ommon [facility] [id number] Sciatica Problem Commo n of right [facility] side [facility] [id number] 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 - [facility] urinary [facility] [id number] Recurrent Problem Com mon UTI Spirit - [facility] Hypertensi Hypertens Problem Active 2022-07-27 Memoria ve martha 13:48:57 l disorder, disorder, Herm rebecca systemic systemic arterial arterial (disorder) (disorder) Active Problem 07/27/2022 [facility] [place] 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:48:57 l aneurysm aneurysm Jose n (disorder) (disorder) Active Problem 07/27/2022 [facility] Lumbar Lumbar Problem Active 2022-07-27 [facility] radiculopa radiculopa 13:48:57 l thy thy [place] (disorder) (disorder) Active Problem 07/27/2022 [facility] 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:48:57 l neuralgia neuralgia Herm rebecca (disorder) (disorder) Active Problem 07/27/2022 [facility] Aneurysm Aneurysm Problem Resolve 2021-10-27 Memoria (disorder) (disorder) d 03:33:27 l Resolved [place] Problem 10/27/2021 [facility], OPID [place] Bronchitis Problem Resolve 2021-10-27 Memoria (disorder) Bronchitis d 03:33:27 l (disorder) Jose n Resolved Problem 10/27/2021 [facility], OPIDaniel [place] Dizziness Dizziness Problem Resolve 2021-10-27 Memoria (finding) (finding) d 03:33:27 l Resolved [place] Problem 10/27/2021 [facility] Neuro Falling Falling Problem Resolve 2021-10-27 M emoria injury injury d 03:33:27 l (finding) (finding) Herm rebecca Resolved Problem 10/27/2021 [facility] Hemorrhage Hemorrhag Problem Resolve 2021-10-27 Memoria into e into d 03:33:27 l subarachno subarachno He rmann id space id space of of neuraxis neuraxis (disorder) (disorder) Resolved Problem 10/27/2021 [facility] Neuro Hypothyroi Hypothyro Problem Resolve 2021-10-27 Memoria dism idism d 03:33:27 l (disorder) (disorder) He rmann Resolved Problem 10/27/2021 [facility] Low back Low back Problem Resolve 2021-10-27 Memoria pain pain d 03:33:27 l (disorder) (disorder) He rmann Resolved Problem 10/27/2021 [facility] Allergies, Adverse Reactions, Alerts Allergy Allergy Status Severity Reaction(s) Onset Inactive Treating Comm ents Source Name Type Date Date Clinician phenytoi phenytoi Active Unknown Commo n n n [facility] phenytoi phenytoi Active Memori a n n l [place] Social History Social Habit Start Date Stop Date Quantity Comments Source History of Tobacco Use Co mmon [facility] Sex Assigned At Com mon [facility] Smoking Status Start Date Stop Date Source Tobacco smoking status [facility] Medications Ordered Filled Start Stop Current Ordering Indication Dosage Frequency Signature Comments Components Source Medication Medication Date Date Medication? Clinician (SIG) Name Name gabapentin Yes TAKE 1 Memor ia 300 mg oral 6-06 CAPSULE BY l capsule 15:51: MOUTH [place] 00 THREE TIMES A DAY losartan 50 Yes TAKE 1 Riley gayle mg oral 6-06 TABLET BY l tablet 15:51: MOUTH [place] 00 TWICE A DAY furosemide Yes TAKE 1 Memor ia 20 mg oral 6-06 TABLET BY l tablet 15:51: MOUTH [place] 00 EVERY DAY Eliquis 2.5 Yes TAKE 1 Riley gayle mg oral 6-06 TABLET BY l tablet 15:51: MOUTH [place] 00 TWICE A DAY Estradiol Estradiol 2021-02 No Estradiol 0.1 MG/GM 0.1 MG/GM 1-16 0.1 MG/GM 00:00: 00 Estradiol Estradiol 2021-02 No Estradiol 0.1 MG/GM 0.1 MG/GM 1-16 0.1 MG/GM 00:00: 00 Methenamine Methenamine 2021-0 2022- No 1{table QD Methenamin Hippurate 1 Hippurate 1 8-17 05-20 t} e GM GM 00:00: 00:00 Hippurate 00 :00 1 GM Methenamine Methenamine 2021-0 2022- No 1{table QD Methenamin Hippurate 1 Hippurate 1 8-17 05-15 t} e GM GM 00:00: 00:00 Hippurate 00 :00 1 GM Methenamine Methenamine 2022- No 1{table QD Methenamin Hippurate 1 Hippurate 1 10-04 t} e GM GM 00:00: 00:00 Hippurate 00 :00 1 GM Methenamine Methenamine 0 2022- No 1{table QD Methenamin Hippurate 1 Hippurate 1 10-04 t} e GM GM 00:00: 00:00 Hippurate 00 :00 1 GM Methenamine Methenamine 0 2022- No 1{table QD Methenamin Hippurate 1 Hippurate 1 10-04 t} e GM GM 00:00: 00:00 Hippurate 00 :00 1 GM Methenamine Methenamine 0 2021- No 1{table BID Methenamin Hippurate 1 Hippurate 1 10-04 t} e GM GM 00:00: 00:00 Hippurate 00 :00 1 GM gabapentin Yes 300 mg = 1 M emoria 300 mg oral 8-16 cap, PO, l capsule 16:13: TID, X 90 Radha nn day, # 270 cap, 2 Refill(s), Pharmacy: [id number], 147.32, cm, 01/25/21 9:47:00 [employer], Height, 66.818, kg, 01/25/21 9:47:00 [employer], Weight gabapentin Yes 300 mg = 1 M emoria 300 mg oral 8-16 cap, PO, l capsule 16:13: TID, X 90 Radha nn day, # 270 cap, 2 Refill(s), Pharmacy: [facility] #[id number], 147.32, cm, 01/25/21 9:47:00 [employer], Height, 66.818, kg, 01/25/21 9:47:00 [employer], Weight Citracal 2020-02 Yes PO, BID, 0 Mem oria Regular 2-08 Refill(s) l 15:51: [place] 00 Citracal 2020-02 Yes PO, BID, 0 Mem oria Regular 2-08 Refill(s) l 15:51: [place] levothyroxi 2020-02 Yes 50 Memori a ne 50 mcg 2-08 microgram l (0.05 mg) 15:50: = 1 tab, Herm rebecca oral tablet 00 PO, Daily, # 30 tab, 0 Refill(s) levothyroxi 2020-02 Yes 50 Memori a ne 50 mcg 2-08 microgram l (0.05 mg) 15:50: = 1 tab, Herm rebecca oral tablet 00 PO, Daily, # 30 tab, 0 Refill(s) gabapentin 2020-02 Yes 300 mg = 1 M emoria 300 MG Oral 1-16 cap, PO, l Capsule 18:17: TID, X 90 Radha nn 00 day, # 270 cap, 2 Refill(s), Pharmacy: [facility] #[id number], 149.86, cm, 07/21/19 9:59:00 CDT, Height, 70, kg, 07/21/19 9:59:00 CDT, Weight gabapentin 2020-02 Yes 300 mg = 1 M emoria 300 MG Oral 1-16 cap, PO, l Capsule 18:17: TID, X 90 Radha nn 00 day, # 270 cap, 2 Refill(s), Pharmacy: [facility] #[id number], 149.86, cm, 07/21/19 9:59:00 CDT, Height, 70, kg, 07/21/19 9:59:00 CDT, Weight Estradiol Estradiol 2020-02 No Estradiol 0.1 MG/GM 0.1 MG/GM 1-04 0.1 MG/GM 00:00: 00 gabapentin 0 Yes 300 mg = 1 M emoria 300 MG Oral 3-03 cap, PO, l Capsule 16:53: TID, X 90 Radha nn 00 day, # 270 cap, 2 Refill(s), Pharmacy: [facility] #[id number], 149.86, cm, 07/21/19 9:59:00 CDT, Height, 70, kg, 07/21/19 9:59:00 CDT, Weight gabapentin Yes 300 mg = 1 M emoria 300 MG Oral 3-03 cap, PO, l Capsule 16:53: TID, X 90 Radha nn 00 day, # 270 cap, 2 Refill(s), Pharmacy: [facility] #[id number], 149.86, cm, 07/21/19 9:59:00 CDT, Height, 70, kg, 07/21/19 9:59:00 CDT, Weight Augmentin Augmentin 2019-0 2020- No Luz Maria 1 tablet Common 10-07 Edi Spirit 00:00: 00:00 - [facility] 00 :00 [facility] gabapentin 2020-0 No See Memoria 300 MG Oral 6-08 Instructio l Capsule 13:33: ns, TAKE Jose n 00 ONE CAPSULE BY MOUTH A DAY AND 2 CAPSULES AT BEDTIME, # 270 cap, 3 Refill(s), Pharmacy: [facility] #[id number] gabapentin 2020-0 No See Memoria 300 MG Oral -08 Instructio l Capsule 13:33: ns, TAKE Jose n 00 ONE CAPSULE BY MOUTH A DAY AND 2 CAPSULES AT BEDTIME, # 270 cap, 3 Refill(s), Pharmacy: [facility] #[id number] gabapentin 2020-0 Yes See Memoria 300 MG Oral 6- Instructio l Capsule 15:15: ns, TAKE Jose n 00 ONE CAPSULE BY MOUTH A DAY AND 2 CAPSULES AT BEDTIME, # 90 cap, 9 Refill(s), Pharmacy: [facility] #[id number] gabapentin 2020-0 Yes See Memoria 300 MG Oral 6- Instructio l Capsule 15:15: ns, TAKE Jose n 00 ONE CAPSULE BY MOUTH A DAY AND 2 CAPSULES AT BEDTIME, # 90 cap, 9 Refill(s), Pharmacy: [facility] #[id number] Aspirin 81 2020-0 Yes 81 mg = 1 Me moria MG Enteric 6-02 tab, PO, l Coated 15:14: Daily, # [place] Tablet 00 90 tab, 3 Refill(s) Aspirin 81 2020-0 Yes 81 mg = 1 Me moria MG Enteric 6-02 tab, PO, l Coated 15:14: Daily, # [place] Tablet 00 90 tab, 3 Refill(s) aspirin 81 2020-0 Yes 81 mg = 1 Me moria mg tablet, 6-02 tab, PO, l enteric 15:14: Daily, # Jose n coated 00 90 tab, 3 Refill(s) methenamine 2020-0 Yes 1 gm, PO, M emoria hippurate 6-02 BID, 0 l 15:01: Refill(s) [place] 00 methenamine 2020-0 Yes 1 gm, PO, M emoria hippurate 6-02 BID, 0 l 15:01: Refill(s) atenolol 50 Yes 50 mg = 1 M emoria mg oral 5-17 tab, PO, l tablet 19:16: Daily, 0 Refill(s) Singulair Yes 10 mg = 1 Mem oria 10 mg oral 5-17 tab, PO, l tablet 19:16: QPM, 0 Refill(s) Vitamin D3 Yes 0 Memoria 5-17 Refill(s) l 19:16: bisacodyl-m Yes 1 ea, PO, M emoria agnesium 5-17 ONCE, 0 l citrate 19:16: Refill(s) Centrum Yes 1 tab, PO, Riley gayle Silver oral 5-17 Daily, 0 l tablet 19:16: Refill(s) Jose n Citracal Yes 1 tab, PO, Mem oria Regular 5-17 BID, 0 l 19:16: Refill(s) Atenolol 50 Atenolol 50 No 1{table QD [...] 100 MCG 12 100 MCG Immunizations Ordered Filled Immunization Date Status Comments Sour e Immunization Name Name [id number] 2021-05-20 Completed Memor ial [id number] 00:00:00 Radha nn ER CZIP-[id number]-19m 2020-12-07 Completed Memor ial RNA-1273vaxMODERNA 00:00:00 Jose n QDBW-IxT-[id number]-19m 2020-04-14 Completed Memor ial RNA-1273vaxMODERNA 00:00:00 Jose n OGSD-CcS-[id number]-19m 2020-03-16 Completed Memor ial RNA-1273vaxMODERNA 00:00:00 Jose n DCGY-CyH-[id number]-19m Unknown Completed Memor ial [id number] Radha nn ER [id number]-[id number]-19m Unknown Completed Memor ial RNA-1273vaxMODERNA Jose n MKHC-BiB-[id number]-19m Unknown Completed Memor ial RNA-1273vaxMODERNA Jose n JWLX-EqT-2WFUXS-19m Unknown Completed Memor ial RNA-1273vaxMODERNA Jose n Vital Signs Vital Name Observation Time Observation Value Comments Source height 2022-01-03 13:15:00 59 [in_i] [facility] weight 2022-01-03 13:15:00 150 [lb_av] [facility] temperature 2022-01-03 13:15:00 97.3 [degF] [facility] bmi 2022-01-03 13:15:00 30.29 kg/m2 [facility] oximetry 2022-01-03 13:15:00 97 % [facility] respiratory rate 2022-01-03 13:15:00 18 /min Comm on [facility] blood pressure 2022-01-03 13:15:00 132 mm[Hg] Common [facility] - systolic [facility] blood pressure 2022-01-03 13:15:00 68 mm[Hg] Common [facility] - diastolic [facility] height 2021-10-09 13:00:00 59 [in_i] Common [facility] weight 2021-10-09 13:00:00 148 [lb_av] Common [facility] temperature 2021-10-09 13:00:00 97.2 [degF] Common [facility] bmi 2021-10-09 13:00:00 29.89 kg/m2 [facility] oximetry 2021-10-09 13:00:00 98 % [facility] respiratory rate 2021-10-09 13:00:00 16 /min Comm on [facility] blood pressure 2021-10-09 13:00:00 164 mm[Hg] Common [facility] - systolic [facility] blood pressure 2021-10-09 13:00:00 84 mm[Hg] Common [facility] - diastolic [facility] height 2021-04-04 11:00:00 59 [in_i] [facility] weight 2021-04-04 11:00:00 140 [lb_av] [facility] bmi 2021-04-04 11:00:00 28.27 kg/m2 [facility] blood pressure 2021-04-04 11:00:00 135 mm[Hg] Common [facility] - systolic [facility] blood pressure 2021-04-04 11:00:00 85 mm[Hg] Common [facility] - diastolic [facility] Systolic (mm Hg) 2022-07-24 15:27:00 Riley shabana [place] Diastolic (mm Hg) 2022-07-24 15:27:00 Mem oriallegra [place] Heart Rate 2022-07-24 15:27:00 [facility] [place] Height 2022-07-24 15:27:00 4 [ft_i] Whitney Ballesteros Weight 2022-07-24 15:27:00 [facility] [place] BMI Calculated 2022-07-24 15:27:00 Memori al [place] Systolic (mm Hg) 2021-10-24 14:49:00 Riley rial [place] Diastolic (mm Hg) 2021-10-24 14:49:00 Mem orial [place] Heart Rate 2021-10-24 14:49:00 [facility] [place] Respitory Rate 2021-10-24 14:49:00 Memori al [place] Height 2021-10-24 14:49:00 149.86 cm [facility] [place] Weight 2021-10-24 14:49:00 [facility] [place] BMI Calculated 2021-10-24 14:49:00 Memori al [place] Systolic (mm Hg) 2021-01-25 15:38:00 Riley rial [place] Diastolic (mm Hg) 2021-01-25 15:38:00 Mem orial [place] Heart Rate 2021-01-25 15:38:00 [facility] [place] Respitory Rate 2021-01-25 15:38:00 Memori al [place] Height 2021-01-25 15:38:00 147.32 cm [facility] [place] Weight 2021-01-25 15:38:00 [facility] [place] BMI Calculated 2021-01-25 15:38:00 Memori al [place] Systolic (mm Hg) 2019-07-21 14:59:00 Riley rial [place] Diastolic (mm Hg) 2019-07-21 14:59:00 Mem orial [place] Heart Rate 2019-07-21 14:59:00 [facility] [place] Respitory Rate 2019-07-21 14:59:00 Memori al [place] Height 2019-07-21 14:59:00 149.86 cm [facility] [place] Weight 2019-07-21 14:59:00 [facility] [place] BMI Calculated 2019-07-21 14:59:00 Memori al [place] Temperature Oral (F) 2019-07-21 14:59:00 97.5 F [facility] [place] Systolic (mm Hg) 2018-11-12 18:19:00 Riley rial [place] Diastolic (mm Hg) 2018-11-12 18:19:00 Mem orial [place] Heart Rate 2018-11-12 18:19:00 [facility] [place] Respitory Rate 2018-11-12 18:19:00 Memori al [place] Height 2018-11-12 18:19:00 149.86 cm [facility] [place] Weight 2018-11-12 18:19:00 [facility] [place] BMI Calculated 2018-11-12 18:19:00 Memori al [place] Heart Rate 2017-03-19 16:07:00 [facility] [place] Temperature Oral (F) 2017-03-19 16:07:00 97 F [facility] [place] Systolic (mm Hg) 2017-03-19 16:07:00 Riley donald [place] Diastolic (mm Hg) 2017-03-19 16:07:00 Mem orial [place] Weight 2017-03-19 16:07:00 [facility] [place] BMI Calculated 2017-03-19 16:07:00 Memori al [place] Height 2017-03-19 16:07:00 154.94 cm [facility] [place] Procedures Procedure Date / Time Performed Performing Clinician Yvrose e Cystocele [facility] of [facility] Herm rebecca Acid reflux [facility] [place] Cataracts [facility] [place] Hip replacement [facility] H/O: hysterectomy [facility] nn Craniotomy [facility] Encounters Start End Encounter Admission Attending Care Care Encounter Source Date/Time Date/Time Type Type Clinicians Facility Department ID 2022-04-09 Outpatient Martin, [facility] [id number] Common 12:59:00 Fercho [id number] [facility] 2021-10-09 Outpatient Martin, [facility] [id number] Common 12:51:00 Fercho [id number] [facility] 2021-03-15 Outpatient Martin, [facility] [id number] Common 13:47:41 Fercho [id number] [facility] 2021-03-15 Outpatient Martin, [facility] [id number] Common 11:32:23 Fercho [id number] [facility] 2021-03-15 Outpatient Martin, [facility] [id number] Common 11:02:43 Fercho [id number] [facility] 2023-04-23 2023-04-23 Outpatient MHIE MHIE [id number] Memoria 10:00:00 10:00:00 18 l [place] 2022-07-24 2022-07-25 Outpatient MHIE MNA [id number] Memoria 15:15:00 04:59:59 Neurology 17 l Franklin Ballesteros 2022-07-24 2022-07-24 [id number] 10:15:00 23:59:59 Sammy 17 Lorenzo 2022-07-24 2022-07-24 Outpatient MHIE MHIE [id number] Memoria 10:15:00 10:15:00 17 wilfredo Ballesteros 2022-07-24 2022-07-24 Outpatient MHIE MHIE [id number] Memoria 10:15:00 10:15:00 17 wilfredo Ballester[place] 2022-01-04 2022-01-04 (TEL) STLMLC ST[facility] [id number] Co mmon 00:00:00 00:00:00 Spirit [facility] 2022-01-03 2022-01-03 OFFICE STLMLC STLMLC [id number] Co mmon 00:00:00 00:00:00 VISIT [facility] PT - CHI LEVEL 2 [facility] 2021-11-14 2021-11-14 (TEL) STLMLC STLMLC [id number] Co mmon 00:00:00 00:00:00 [facility] 2021-10-24 2021-10-25 Outpatient nullFlavo MNA [id number] Memoria 14:45:00 04:59:59 r Neurology 16 l [place] Ballesteros 2021-10-24 2021-10-25 Outpatient nullFlavo MNA [id number] Memoria 14:45:00 04:59:59 r Neurology 16 l [place] Ballesteros 2021-10-24 2021-10-24 Outpatient GEE [facility] [id number] 09:45:00 23:59:59 Sammy 16 Lorenzo 2021-10-24 2021-10-24 Outpatient MHIE MHIE [id number] Memoria 09:45:00 09:45:00 16 wilfredo Ballesteros 2021-10-09 2021-10-09 OFFICE STLMLC STLMLC [id number] Co mmon 00:00:00 00:00:00 VISIT [facility] PT - CHI LEVEL 4 [facility] 2021-10-02 2021-10-02 (TEL) STLMLC STLMLC [id number] Co mmon 00:00:00 00:00:00 [facility] 2021-04-12 2021-04-12 (TEL) STLMLC STLMLC [id number] Co mmon 00:00:00 00:00:00 [facility] 2021-04-04 2021-04-04 OFFICE STLMLC STLMLC [id number] Co mmon 00:00:00 00:00:00 VISIT NEW Spir it PT LEVEL 4 [facility] 2021-01-25 2021-01-26 Outpatient nullFlavo MNA [id number] Memoria 15:45:00 05:59:59 r Neurology 15 l [place] 2021-01-25 2021-01-26 Outpatient nullFlavo MNA [id number] Memoria 15:45:00 05:59:59 r Neurology 15 l [place] 2021-01-25 2021-01-25 Out[facility] [id number] 09:45:00 23:59:59 Sammy 15 [place] 2021-01-25 2021-01-25 Outpatient MHIE DEXTER [id number] Memoria 09:45:00 09:45:00 15 wilfredo [place] 2020-12-22 2020-12-22 (TEL) STLMLC STLMLC [id number] Co mmon 00:00:00 00:00:00 [facility] 2020-05-24 2020-05-24 Outpatient STLMLC STLMLC [id number] Common 00:00:00 00:00:00 [facility] 2020-04-20 2020-04-21 Outpatient nullFlavo MNA [id number] Memoria 15:45:00 05:59:59 r Neurology 14 l [place] Ballesteros 2020-04-20 2020-04-21 Outpatient nullFlavo MNA [id number] Memoria 15:45:00 05:59:59 r Neurology 14 l [place] Ballesteros 2020-04-20 2020-04-20 Outpatient CARMELITA Balbuena [facility] [id number] 09:45:00 23:59:59 Sammy 14 [place] 2020-04-20 2020-04-20 Ambulatory nullFlavo MNA [id number] Memoria 15:45:00 15:45:00 Pre-Reg r Neurology 13 l [place] Ballesteros 2020-04-20 2020-04-20 Ambulatory nullFlavo MNA [id number] Memoria 15:45:00 15:45:00 Pre-Reg r Neurology 13 wilfredo Ballesteros 2020-04-20 2020-04-20 Outpatient MHIE MHIE [id number] Memoria 09:45:00 09:45:00 14 wilfredo Ballester[place] 2020-04-20 2020-04-20 Outpatient MHIE MHIE [id number] Memoria 09:45:00 09:45:00 13 wilfredo Ballester[place] 2020-04-20 2020-04-20 Outpatient Esha [facility] [id number] 09:45:00 09:45:00 Sammy 13 [place] 2020-04-18 2020-04-18 Outpatient STLMLC STLMLC [id number] Common 00:00:00 00:00:00 [facility] 2020-03-07 2020-03-07 Outpatient STLMLC STLMLC [id number] Common 00:00:00 00:00:00 [facility] 2020-01-22 2020-01-22 Outpatient STLMLC STLMLC [id number] Common 00:00:00 00:00:00 [facility] 2020-01-08 2020-01-08 Outpatient STLMLC STLMLC [id number] Common 00:00:00 00:00:00 [facility] 2019-10-08 2019-10-08 Out[facility] [id number] Common 13:58:00 13:58:00 t Specialty/U Sp jose Specialty rology - [facility]I /Urology Clinic [facility] 2019-10-05 2019-10-05 Outpatient [facility] [id number] Common 11:30:00 11:30:00 t Specialty/U Sp jose Specialty rology - [facility]I /[facility]rology Clinic [facility] 2019-09-21 2019-09-21 Outpatient [facility] [id number] Common 14:34:00 14:34:00 t Specialty/U Sp jose Specialty rology - [facility]I /[facility] Clinic [facility] 2019-09-09 2019-09-09 Outpatient [facility] [id number] Common 11:00:00 11:00:00 t Specialty/U Sp jose Specialty rology - CHI /[facility]rology Clinic [facility] 2019-09-01 2019-09-01 Outpatient Celine Bergert [id number] Common 13:10:00 13:10:00 t Specialty/U Sp jose Specialty rology - CHI /[facility]rology Clinic [facility] 2019-07-21 2019-07-22 Outpatient nullFlavo MNA [id number] Memoria 14:45:00 04:59:59 r Neurology 12 l [place] 2019-07-21 2019-07-22 Outpatient nullFlavo MNA [id number] Memoria 14:45:00 04:59:59 r Neurology 12 l [place] 2019-07-21 2019-07-21 Out[facility] [id number] 09:45:00 23:59:59 Sammy 12 [place] 2019-07-21 2019-07-21 Outpatient GEEIE [facility]EEIE [id number] [facility] 09:45:00 09:45:00 12 l [place] 2019-07-15 2019-07-15 Outpatient Celine Bergert [id number] Common 11:00:00 11:00:00 t Specialty/U Sp jose Specialty rology - CHI /[facility]rology Clinic [facility] 2019-05-12 2019-05-12 Outpatient Celine Bergert [id number] Common 08:50:00 08:50:00 t Specialty/U Sp jose Specialty rology - [facility]I /[facility] Clinic [facility] 2019-04-20 2019-04-20 Outpatient Celine Bergert [id number] Common 11:14:00 11:14:00 t Specialty/U Sp jose Specialty rology - [facility]I /[facility]rology Clinic [facility] 2019-04-16 2019-04-16 Outpatient Celine Bergert [id number] Common 10:30:00 10:30:00 t Specialty/U Sp jose Specialty rology - [facility]I /[facility] Clinic [facility] 2019-03-12 2019-03-12 Outpatient Celine Bergert [id number] Common 11:03:00 11:03:00 t Specialty/U Sp jose Specialty rology - [facility]I /[facility] 2019-03-05 2019-03-05 [facility] [id number] Common 13:06:00 13:06:00 t Specialty/U Sp jose Specialty rology - [facility]I /[facility] 2019-01-06 2019-01-06 [place]patient [facility] [id number] Common 08:15:00 08:15:00 t Specialty/U Sp jose Specialty rology - [facility]I /[facility] 2019-01-02 2019-01-02 Outpatient [facility] [id number] Common 14:30:00 14:30:00 t Specialty/U Sp jose Specialty rology - [facility] /[facility] 2018-12-15 2018-12-15 [facility] [id number] Common 10:18:00 10:18:00 t Specialty/U Sp jose Specialty rology - [facility]I /[facility] 2018-11-17 2018-11-17 [facility] [id number] Common 14:29:00 14:29:00 t Specialty/U Sp jose Specialty rology - [facility] /[facility] 2018-11-13 2018-11-13 [facility]patient [facility] [id number] Common 11:00:00 11:00:00 t Specialty/U Sp jose Specialty rology - [facility] /[facility] 2018-11-12 2018-11-13 Outpatient nullFlavo MNA [id number] Memoria 18:00:00 04:59:59 r Neurology 11 l [place] 2018-11-12 2018-11-13 Outpatient nullFlavo MNA [id number] Memoria 18:00:00 04:59:59 r Neurology 11 l Franklin Ballesteros 2018-11-12 2018-11-12 Outpatient CARMELITA Balbuena [id number] 13:00:00 23:59:59 Sammy Lizeth Lorenzo 2018-11-12 2018-11-12 Outpatient DEXTER RENTERIA [id number] Memoria 13:00:00 13:00:00 Lizeth Ballesteros 2018-11-11 2018-11-11 Ambulatory nullFlavo MNA [id number] Memoria 18:00:00 18:00:00 Pre-Reg r Neurology 09 l [place] 2018-11-11 2018-11-11 Ambulatory nullFlavo MNA [id number] Memoria 18:00:00 18:00:00 Pre-Reg r Neurology 09 l [place] 2018-11-11 2018-11-11 Outpatient DEXTER RENTERIA [id number] Memoria 13:00:00 13:00:00 09 wilfredo [place] 2018-11-11 2018-11-11 Outpatient Esha [facility] [id number] 13:00:00 13:00:00 Sammy Kush [place] 2018-11-11 2018-11-11 Outpatient [facility] [id number] Common 08:25:00 08:25:00 t Specialty/U Sp jose Specialty rology - [facility]rology Clinic [facility] 2018-11-07 2018-11-07 Outpatient [facility] [id number] Common 14:15:00 14:15:00 t Specialty/U Sp jose Specialty rology - [facility]Urology Clinic [facility] 2018-10-13 2018-10-13 Outpatient [facility] [id number] Common 15:36:00 15:36:00 t Specialty/U Sp jose Specialty rology - [facility]rology Clinic [facility] 2018-10-13 2018-10-13 Outpatient [facility] [id number] Common 14:15:00 14:15:00 t Specialty/U Sp jose Specialty rology - [facility]Urology Clinic [facility] 2018-05-27 2018-05-27 Ambulatory nullFlavo MNA [id number] Memoria 13:30:00 13:30:00 Pre-Reg r Neurosurger 10 l y [facility] 2018-05-27 2018-05-27 Ambulatory nullFlavo MNA [id number] Memoria 13:30:00 13:30:00 Pre-Reg r Neurosurger 10 l y [facility] 2018-05-27 2018-05-27 Outpatient DEXTER RENTERIA [id number] Memoria 08:30:00 08:30:00 10 l [place] 2018-05-27 2018-05-27 Outpatient [place], MHMISCHER MHMISCHER [id number] 08:30:00 08:30:00 Seng Mclean 10 2018-02-13 2018-02-15 Outside nullFlavo MNA [id number] Memoria 21:42:00 05:59:59 Medical r Neurology 07 l Records [place] 2018-02-13 2018-02-15 Outside nullFlavo MNA [id number] Memoria 21:42:00 05:59:59 Medical r Neurology 07 l Records [place] 2018-02-13 2018-02-14 Outpatient MHMISCHER MHMISCHER [id number] 15:42:00 23:59:59 07 2017-11-14 2017-11-14 Outpatient MHIE MHIE [id number] Memoria 13:30:00 13:30:00 08 wilfredo [place] 2017-11-14 2017-11-14 Outpatient MHIE MHIE [id number] Memoria 13:30:00 13:30:00 08 wilfredo [place] 2017-03-19 2017-03-20 Outpatient nullFlavo MNA [id number] Memoria 15:45:00 05:59:59 r Neurosurger 05 l y [facility] 2017-03-19 2017-03-20 Outpatient nullFlavo MNA [id number] Memoria 15:45:00 05:59:59 r Neurosurger 05 l y [facility] 2017-03-19 2017-03-19 Outpatient Sarah Beth, MHMISCHER MHMISCHER [id number] 09:45:00 23:59:59 Seng Mclean 05 2017-03-19 2017-03-19 Outpatient MHIE MHIE [id number] Memoria 09:45:00 09:45:00 05 wilfredo [place] 2017-03-07 2017-03-07 Outpatient MHIE MHIE [id number] Memoria 09:30:00 09:30:00 06 wilfredo [place] 2017-03-07 2017-03-07 Outpatient MHIE MHIE [id number] Memoria 09:30:00 09:30:00 07 wilfredo [place] 2017-03-07 2017-03-07 Outpatient MHIE MHIE [id number] Memoria 09:30:00 09:30:00 06 wilfredo [place] 2017-03-07 2017-03-07 Outpatient MHIE MHIE [id number] Memoria 09:30:00 09:30:00 07 wilfredo [place] 2016-03-27 2016-03-27 Outpatient MHIE MHIE [id number] Memoria 09:45:00 09:45:00 04 wilfredo [place] 2016-03-27 2016-03-27 Outpatient MHIE MHIE [id number] Memoria 09:45:00 09:45:00 04 wilfredo [place] 2015-07-12 2015-07-13 Outpt Diag nullFlavo [facility] [id number] Memoria 14:14:00 04:59:00 Services r Outpatient 00 l Imaging - Jose n [facility] [place] 2015-07-12 2015-07-13 Outpt Diag nullFlavo [facility] [id number] Memoria 14:14:00 04:59:00 Services r Out[facility] 2015-07-12 2015-07-12 Outpatient [place], 35 [facility] [id number] 09:14:00 23:59:00 Seng Vinay 00 2015-07-12 2015-07-12 Outpatient MHIE MHIE [id number] Memoria 12:00:00 12:00:00 03 wilfredo [place] 2015-07-12 2015-07-12 Outpatient MHIE MHIE [id number] Memoria 12:00:00 12:00:00 02 wilfredo [place] 2015-07-12 2015-07-12 Outpatient MHIE MHIE [id number] Memoria 12:00:00 12:00:00 03 wilfredo [place] 2015-07-12 2015-07-12 Outpatient MHIE MHIE [id number] Memoria 12:00:00 12:00:00 02 wilfredo [place] 2015-07-05 2015-07-05 Outpatient MHIE MHIE [id number] Memoria 14:00:00 14:00:00 01 wilfredo [place] 2015-07-05 2015-07-05 Outpatient MHIE MHIE [id number] Memoria 14:00:00 14:00:00 01 wilfredo [place] Results This patient has no known results.
[2022-11-07 17:46] LABS: Absolute Lymphocytes (CBC) 1.6 K/uL (0.7-4.9); Hematocrit 38.2 % (36.0-45.0); Lymphocytes % 22.2 % (15.3-44.8); MCV 94.1 fL (80-100); MPV 8.7 fL (7.6-11.3); Platelets 177 thou/uL (152-406); RBC Red Blood Cell Count 4.05 M/uL (3.86-4.86)
[2022-11-07 18:04] LABS: Albumin 3.3 g/dL (3.4-5.0); Protein, Total 7.1 g/dL (6.4-8.2)
[2022-11-07 18:26] LABS: Specific Gravity 1.005 (1.005-1.030); Urine Bilirubin NEGATIVE (Negative); Urine Blood Negative (Negative); Urine Clarity Clear (Clear); Urine Color Colorless (Yellow); Urine Glucose NEGATIVE (Negative); Urine Protein NEGATIVE (Negative); Urine Urobilinogen Normal (Normal)
--- NOTE | 2022-11-07 18:47 | RAD REPORT ---
EXAM DESCRIPTION: US - Abdomen Exam Limited - 11/07/2022 5:52 pm CLINICAL HISTORY: ABD PAIN COMPARISON: Renal Ultrasound-Complete dated 10/16/2021 TECHNIQUE: Sonographic grayscale and color flow images of the right upper abdominal quadrant were obtained. FINDINGS: The gallbladder demonstrates no gallstones. Small fold is seen near the neck. No perichole cystic fluid or gallbladder wall thickening. The common bile duct is normal measuring 5 mm. The liver demonstrates no findings of intrahepatic biliary dilatation. IMPRESSION: No sonographic abnormality of the gallbladder or biliary tract.
--- NOTE | 2022-11-07 19:17 | ER ---
Nurse's Notes [facility] Name: Radha Parada Age: 87 yrs Sex: Female : 1935 Arrival Date: 11/07/2022 Time: 15:37 Bed 14 Private MD: Diagnosis: Diverticulitis of intestine, part unspecified, without perforation or abscess without bleeding;Hyponatremia Presentation: 11/07 15:52 Chief complaint: Patient states: Intermittent upper abdominal pain and bloating x 2-3 ph weeks, also reports nausea, denies fever or chills. Coronavirus screen: Vaccine status: Patient reports receiving the 2nd dose of the covid vaccine. Ebola Screen: No symptoms or risks identified at this time. Initial Sepsis Screen: Does the patient meet any 2 criteria? No. Patient's initial sepsis screen is negative. Does the patient have a suspected source of infection? No. Patient's initial sepsis screen is negative. Risk Assessment: Do you want to hurt yourself or someone else? Patient reports no desire to harm self or others. Onset of symptoms was November 07, 2022. 15:52 Method Of Arrival: Ambulatory ph 15:52 Acuity: DEBORAH 3 ph Triage Assessment: 15:54 General: Appears in no apparent distress. Behavior is calm, cooperative, appropriate ph for age. Pain: Complains of pain in epigastric area, right upper quadrant and left upper quadrant. Historical: - Allergies: 15:50 Dilantin; ph - Home Meds: 15:50 atenolol 50 mg Oral tablet daily [Active]; gabapentin 300 mg Oral capsule 3 times per ph day [Active]; levothyroxine 20 mcg/mL oral solution [Active]; montelukast 4 mg Oral Granules in Packet once [Active]; - PMHx: 15:50 Aneurysm; Hypothyroidism; Anxiety; Chronic pain; ph - Immunization history:: Adult Immunizations unknown. - Social history:: Smoking status: Patient denies any tobacco usage or history of. Screenin:00 [facility] ED Fall Risk Assessment (Adult) History of falling in the last 3 months, kc6 including since admission No falls in past 3 months (0 pts) Confusion or Disorientation No (0 pts) Intoxicated or Sedated No (0 pts) Impaired Gait Yes (1 pt) Mobility Assist Device Used Yes (1 pt) Altered Elimination No (0 pt) Score/Fall Risk Level 0 - 2 = Low Risk. Abuse screen: Denies threats or abuse. Denies injuries from another. Nutritional screening: No deficits noted. Tuberculosis screening: No symptoms or risk factors identified. Assessment: 17:30 General: Appears in no apparent distress. comfortable, Behavior is calm, cooperative, kc6 appropriate for age. Pain: Complains of pain in epigastric area. Neuro: Level of Consciousness is awake, alert, obeys commands, Oriented to person, place, time, situation, Appropriate for age. Cardiovascular: Capillary refill < 3 seconds. Respiratory: Airway is patent Trachea midline Respiratory effort is even, unlabored, Respiratory pattern is regular, symmetrical. GI: Abdomen is flat, non-distended, Bowel sounds present X 4 quads. Abd is soft X 4 quads Abdomen is tender to palpation in epigastric area Reports diarrhea, nausea, Patient currently denies vomiting. : No signs and/or symptoms were reported regarding the genitourinary system. EENT: No signs and/or symptoms were reported regarding the EENT system. Derm: No signs and/or symptoms reported regarding the dermatologic system. Skin is intact, is healthy with good turgor, Skin is pink, warm \T\ dry. Musculoskeletal: No signs and/or symptoms reported regarding the musculoskeletal system. Circulation, motion, and sensation intact. Capillary refill < 3 seconds, Range of motion: intact in all extremities. 18:30 Reassessment: Patient appears in no apparent distress at this time. No changes from kc6 previously documented assessment. Patient and/or family updated on plan of care and expected duration. Pain level reassessed. Patient is alert, oriented x 3, equal unlabored respirations, skin warm/dry/pink. Vital Signs: 15:52 BP 148 / 74; Pulse 54; Resp 18; Temp 97.8; Pulse Ox 96% on R/A; Weight 58.97 kg; Height ph 4 ft. 11 in. ; 17:45 BP 162 / 74; Pulse 60; Resp 18 S; Pulse Ox 99% on R/A; kc6 18:47 BP 182 / 82; Pulse 57; Resp 16 S; Pulse Ox 98% on R/A; kc6 19:30 BP 170 / 75; Pulse 56; Resp 16; Pulse Ox 98% on R/A; jb4 20:30 BP 156 / 56; Pulse 50; Resp 16; Pulse Ox 100% on R/A; jb4 15:52 Body Mass Index 26.26 (58.97 kg, 149.86 cm) ph ED Course: 15:41 Patient arrived in ED. cc5 15:53 Triage completed. ph 15:53 Arm band placed on. ph 15:57 [facility]ator[facility]-C [facility]. kb 15:57 Aristides Quinn MD is Attending Physician. kb 16:00 Patient has correct armband on for positive identification. Placed in gown. Bed in low kc6 position. Call light in reach. Side rails up X2. Adult w/ patient. Client placed on continuous cardiac and pulse oximetry monitoring. NIBP monitoring applied. 17:01 Dorothy Virgen, KELSEY is Primary Nurse. kc6 17:05 Patient placed in an exam room, on a stretcher. ll1 17:40 Inserted saline lock: 24 gauge in left forearm, using aseptic technique. Blood ds4 collected. Missed attempt(s): 24 gauge in right forearm. Bleeding controlled, band aid applied, catheter tip intact. 17:54 Abdomen Limited US In Process Unspecified. EDMS 18:07 Urinalysis w/ reflexes Sent. em1 18:40 CT Abd/Pelvis - IV Contrast Only In Process Unspecified. EDMS 19:17 Nina Figueroa MD is Hospitalizing Provider. kb 21:29 Provided Education on: need for admit. as6 21:29 No provider procedures requiring assistance completed. Patient admitted, IV remains in as6 place. Administered Medications: 19:54 Drug: NS 0.9% IV 1000 ml IV at 75 ml/hr continuous Route: IV; Rate: 75 ml/hr; Site: jb4 left antecubital; 21:30 Follow up: Response: No adverse reaction; IV Status: Completed infusion; IV Intake: as6 200ml 19:54 Drug: metroNIDAZOLE IVPB 500 mg 100 ml IVPB at 200 ml/hr once over 30 mins Volume: 100 jb4 ml; Route: IVPB; Rate: 200 ml/hr; Infused Over: 30 mins; Site: left antecubital; 21:30 Follow up: Response: No adverse reaction; IV Status: Completed infusion; IV Intake: as6 100ml 20:47 Drug: Ciprofloxacin IVPB 400 mg 200 ml IVPB once over 60 mins Volume: 200 ml; Route: jb4 IVPB; Infused Over: 60 mins; Site: left antecubital; 21:30 Follow up: Response: No adverse reaction; IV Status: Completed infusion; IV Intake: as6 200ml Medication: 21:29 VIS not applicable for this client. as6 Intake: 21:30 IV: 200ml; Total: 200ml. as6 21:30 IV: 100ml; Total: 300ml. as6 21:30 IV: 200ml; Total: 500ml. as6 Outcome: 19:17 Decision to Hospitalize by Provider. kb 21:29 Admitted to Med/surg as6 21:29 Condition: stable 21:29 Instructed on the need for admit, 21:30 Patient left the ED. as6 Signatures: Dispatcher [employer] EDMaura Hewitt, CLAIMS ASSOCIATEPablito CLAIMS ASSOCIATE-Edwar Kelly em1 David Taylor ds4 Julia Preciado, RN RN Rusty Almanzar RN RN jb4 Crystal Hernandez RN RN ll1 Winston Enamorado RN RN as6 Dorothy Virgen RN RN prem6 So Borja [facility]
--- NOTE | 2022-11-07 19:18 | EDPHYS ---
Physician Documentation [facility] Name: Radha Parada Age: 87 yrs Sex: Female : 1935 Arrival Date: 11/07/2022 Time: 15:37 Bed 14 Private MD: ED Physician Aristides Quinn HPI: 11/07 16:20 This 87 yrs old Female presents to ER via Ambulatory with complaints of Doesn't Feel kb Right. 16:20 The patient presents with abdominal pain in the upper abdomen. Onset: The kb symptoms/episode began/occurred 3 week(s) ago. The symptoms do not radiate. Associated signs and symptoms: Pertinent positives: diarrhea, nausea. The symptoms are described as constant. Modifying factors: The symptoms are alleviated by nothing, the symptoms are aggravated by nothing. Severity of pain: At its worst the pain was moderate in the emergency department the pain is unchanged. The patient has not experienced similar symptoms in the past. The patient has been recently seen by a physician: the patient's primary care provider, 2 week(s) ago, with similar presenting complaints, and was sent to the [facility] Emergency Department for further evaluation. Pt reports upper abd pain with nausea for about 3 weeks. States she had diarrhea last night so she thought it was time to come get evaluated. Reports she saw Dr Martin in the office 2 weeks ago, told him about the pain and was told to come to the ER then, but didn't want to come at that time. . Historical: - Allergies: 15:50 Dilantin; ph - Home Meds: 15:50 atenolol 50 mg Oral tablet daily [Active]; gabapentin 300 mg Oral capsule 3 times per ph day [Active]; levothyroxine 20 mcg/mL oral solution [Active]; montelukast 4 mg Oral Granules in Packet once [Active]; - PMHx: 15:50 Aneurysm; Hypothyroidism; Anxiety; Chronic pain; ph - Immunization history:: Adult Immunizations unknown. - Social history:: Smoking status: Patient denies any tobacco usage or history of. ROS: 16:20 Constitutional: Negative for fever, chills, and weight loss, kb 16:20 Abdomen/GI: Positive for abdominal pain, nausea, diarrhea, Negative for vomiting, 16:20 All other systems are negative, Exam: 16:20 Constitutional: This is a well developed, well nourished patient who is awake, alert, kb and in no acute distress. Head/Face: Normocephalic, atraumatic. ENT: Moist Mucous membranes Cardiovascular: Regular rate Respiratory: Respirations even and unlabored. No increased work of breathing. Talking in full sentences Abdomen/GI: Soft, non-tender. No distention Skin: Warm, dry with normal turgor. Normal color. MS/ Extremity: Pulses equal, no cyanosis. Neurovascular intact. Full, normal range of motion. Neuro: Awake and alert, GCS 15, oriented to person, place, time, and situation. Moves all extremities. Normal gait. Vital Signs: 15:52 BP 148 / 74; Pulse 54; Resp 18; Temp 97.8; Pulse Ox 96% on R/A; Weight 58.97 kg; Height ph 4 ft. 11 in. ; 17:45 BP 162 / 74; Pulse 60; Resp 18 S; Pulse Ox 99% on R/A; kc6 18:47 BP 182 / 82; Pulse 57; Resp 16 S; Pulse Ox 98% on R/A; kc6 19:30 BP 170 / 75; Pulse 56; Resp 16; Pulse Ox 98% on R/A; jb4 20:30 BP 156 / 56; Pulse 50; Resp 16; Pulse Ox 100% on R/A; jb4 15:52 Body Mass Index 26.26 (58.97 kg, 149.86 cm) ph MDM: 15:57 Patient medically screened. kb 16:20 Differential diagnosis: cholecystitis, Cholelithiasis, gastritis, gastroesophageal kb reflux disease, non-specific abd pain, pancreatitis. Data reviewed: vital signs, nurses notes. 19:13 Consideration of Admission/Observation Patient was admitted/placed on observation. kb Escalation of care including admission/observation considered. Management of patient was discussed with the following: Hospitalist: MICHEL Chavarria accepts pt for admission. Counseling: I had a detailed discussion with the patient and/or guardian regarding the historical points, exam findings, and any diagnostic results supporting the discharge/admit diagnosis, lab results, radiology results, the need for further work-up and treatment in the hospital. 11/07 16:10 Order name: CBC with Diff; Complete Time: 17:48 kb 11/07 16:10 Order name: CMP; Complete Time: 18:11 kb 11/07 16:10 Order name: Lipase; Complete Time: 18:11 kb 11/07 16:10 Order name: Urinalysis w/ reflexes; Complete Time: 18:37 kb 11/07 16:10 Order name: Abdomen Limited US; Complete Time: 18:49 kb 11/07 17:48 Order name: CT Abd/Pelvis - IV Contrast Only; Complete Time: 19:22 kb 11/07 16:10 Order name: IV Saline Lock; Complete Time: 17:39 kb 11/07 16:10 Order name: Labs collected and sent; Complete Time: 17:39 kb Administered Medications: 19:54 Drug: NS 0.9% IV 1000 ml IV at 75 ml/hr continuous Route: IV; Rate: 75 ml/hr; Site: [facility] left antecubital; 21:30 Follow up: Response: No adverse reaction; IV Status: Completed infusion; IV Intake: as6 200ml 19:54 Drug: metroNIDAZOLE IVPB 500 mg 100 ml IVPB at 200 ml/hr once over 30 mins Volume: 100 jb4 ml; Route: IVPB; Rate: 200 ml/hr; Infused Over: 30 mins; Site: left antecubital; 21:30 Follow up: Response: No adverse reaction; IV Status: Completed infusion; IV Intake: as6 100ml 20:47 Drug: Ciprofloxacin IVPB 400 mg 200 ml IVPB once over 60 mins Volume: 200 ml; Route: jb4 IVPB; Infused Over: 60 mins; Site: left antecubital; 21:30 Follow up: Response: No adverse reaction; IV Status: Completed infusion; IV Intake: as6 200ml Disposition: 21:40 Co-signature as Attending Physician, Aristides Quinn MD I reviewed the patient's care rt provided by the Advanced Practice Provider and agree with the diagnosis and treatment plan. Disposition Summary: 11/07/22 19:17 Hospitalization Ordered Notes: Hospitalization Status: Observation kb Provider: Nina Figueroa Location: Telemetry/MedSur (observation) kb Condition: Stable kb Problem: new kb Symptoms: are unchanged kb Bed/Room Type: Standard Room Assignment: 209(11/07/22 20:36) kl Diagnosis - Diverticulitis of intestine, part unspecified, without perforation or abscess kb without bleeding - Hyponatremia kb Forms: - Medication Reconciliation Form kb - SBAR form kb - Leadership Thank You Letter kb Signatures: Dispatcher [employer] Maura Joiner, ELECTRIC METER TESTER-C ELECTRIC METER TESTER-Monica Kay, RN RN Julia Mathew RN RN Rusty Quiroga RN RN jb4 Aristides Quinn MD MD rt Winston Enamorado RN as6 Corrections: (The following items were deleted from the chart) 20:36 19:17 kb nessa
--- NOTE | 2022-11-07 19:20 | RAD REPORT ---
EXAM DESCRIPTION: CT - Abdomen Pelvis W Contrast - 11/07/2022 6:39 pm CLINICAL HISTORY: ABD PAIN COMPARISON: No comparisons TECHNIQUE: Thin cut axial CT imaging of the abdomen and pelvis was performed following intravenous a dministration of 100 mL Isovue 300. Multiplanar reformats were generated and reviewed. All CT scans are performed using dose optimization technique as appropriate and may include automated exposure control or mA/KV adjustment according to patient size. FINDINGS: No suspicious findings in the lung bases. The liver, spleen, and pancreas show no suspicious findings. Gallbladder and biliary tree are also wi thout suspicious finding. Symmetric renal function is seen with no hydronephrosis or suspicious renal mass. No dilated bowel loops. Focal proximal to mid sigmoid colon wall thickening with mild adjacent fat st randing extending posteriorly, see axial image 47 series 201. No free air, free fluid or fluid collec tions. No hernia, mass or bulky lymphadenopathy. The urinary bladder is without significant finding. No suspicious bony findings. Left hip prosthesis with cerclage wires. IMPRESSION: Findings suggestive of early acute proximal to mid sigmoid diverticulitis. The findings were communicated to Aristides Quinn on 11/07/2022 at 19:13 hours.
--- NOTE | 2022-11-07 19:29 | P.HP ---
Certification for Inpatient Patient admitted to: Inpatient With expected LOS: <2 Midnights Patient will require the following post-hospital care: None Practitioner: I am a practitioner with admitting privileges, knowledge of patient current condition, hospital course, and medical plan of care. Services: Services provided to patient in accordance with Admission requirements found in Title 42 Section 412.3 of the Code of Federal Regulations Patient History Date of Service: 11/07/22 Reason for admission: Abdominal pain History of Present Illness: 87-year-old female with a past medical history of hypertension, hypothyroidism, brain aneurysm, chronic pain, anxiety presents to the emergency room with abdominal pain. She reports abdominal pain started 3 weeks ago, does not radiate. She reports associated nausea and diarrhea. She reports being seen by PCP 2 weeks ago, nothing was ordered. She was told to go to the emergency room if symptoms are worse. She denies chest pain, vomiting, bloody stools, fever, shortness of breath. Vital signs2 BP 148 / 74; Pulse 54; Resp 18; Temp 97.8; Pulse Ox 96% on R/A; plan to admit for diverticulitis without perforation or bleeding., Hyponatremia. Laboratory evaluation sodium 124 BUN 13 creatinine normal 0.56, estimated GFR 87, CBC unremarkable hypoalbumin 3.3, UA normal. CT of the abdomen pelvis Findings suggestive of early acute proximal to mid sigmoid diverticulitis. Allergies phenytoin sodium [From Dilantin] Allergy (Verified 12/02/17 10:19) Anaphylaxis phenytoin sodium extended [From Dilantin] Allergy (Verified 12/02/17 10:19) Anaphylaxis Home Medications: Gabapentin 300 mg PO DAILY 08/13/18 Montelukast [Singulair*] 10 mg PO DAILY 08/13/18 atenoloL [Tenormin*] 50 mg PO DAILY 08/13/18 Meropenem [Merrem 500 MG/100 ML NS IVPB] 500 mg IV Q8H 14 Days #1 bag 08/14/18 Amlodipine [Norvasc*] 10 mg PO DAILY #30 tab 04/28/22 Apixaban [Eliquis *] 2.5 mg PO BID #60 tab 04/28/22 Losartan Potassium [Cozaar*] 50 mg PO BID #60 tablet 04/28/22 - Past Medical/Surgical History Diabetic: No -: Brain aneurysm -: Hypothyroidism -: COPD -: History of ruptured brain aneurysm -: Hysterectomy -: Tonsillectomy -: Bilateral knee surgery -: Cystocele/rectocele -: R frontal crainiotomy with clipping of aneursym 1982 Psychosocial/ Personal History: She is . Her is currently in the half-way due to dementia. She has 2 children. 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 - Family History Mother -: Hypertension - Social History Smoking Status: Never smoker Alcohol use: Yes CD- Drugs: No Caffeine use: Yes Place of Residence: Home Review of Systems 10-point ROS is otherwise unremarkable Physical Examination - Physical Exam General: Alert, In no apparent distress, Oriented x3 HEENT: Atraumatic, Normocephalic, PERRLA Neck: Supple, 2+ carotid pulse no bruit Respiratory: Clear to auscultation bilaterally, Normal air movement Cardiovascular: No edema, Normal pulses, Regular rate/rhythm Capillary refill: <2 Seconds Gastrointestinal: Normal bowel sounds, Tenderness (Epigastric) Musculoskeletal: No clubbing, No swelling Integumentary: No rashes, No breakdown Neurological: Normal speech, Normal strength at 5/5 x4 extr - Studies Laboratory Data (last 24 hrs) 11/07/22 11/07/22 17:33 17:33 WBC 7.20 Hgb 13.2 Hct 38.2 Plt Count 177 Sodium 124 L Potassium 4.0 BUN 13 Creatinine 0.56 Glucose 93 Total Bilirubin 1.0 AST 17 ALT 18 Alkaline Phosphatase 67 Lipase 36 Assessment and Plan - Plan Assessment plan diverticulitis without perforation or bleeding Hyponatremia. hypertension hypothyroidism aneurysm chronic pain anxiety DVT SCDs Diverticulitis CT of the abdomen pelvis Findings suggestive of early acute proximal to mid sigmoid diverticulitis. IV cefepime, IV Flagyl, as needed analgesics Hyponatremia. Laboratory evaluation sodium 124 BUN 13 creatinine normal 0.56, estimated GFR 87 Nephrology consult, Urine Osmo serum osmo, urine sodium ordered hypertension hypothyroidism aneurysm chronic pain anxiety Resume appropriate home meds Diet n.p.o. Full code DVT SCDs Discharge Plan: Home Plan to discharge in: 48 Hours - Advance Directives Does patient have a Living Will: Yes Does patient have a Durable POA for Healthcare: Yes - Code Status/Comfort Care Code Status Assessed: Yes Code Status: Full Code Physician Review: Patient Assessed, Agree with Above Assessment and Plan Time Spent Managing Pts Care (In Minutes): 50
[2022-11-07] MEDS ORDERED: CIPROFLOXACIN 400mg IV 400 MG/200 ML BAG IV ONE (19:59)
[2022-11-07] MEDS ORDERED: NA CHLORIDE 0.9% 1,000 ML ONE (19:59)
[2022-11-07] MEDS ORDERED: METRONIDAZOLE 500mg IVPB 500 MG/100 ML BAG IV ONE (19:59)
[2022-11-07] MEDS ORDERED: ONDANSETRON 4 MG/2 ML VIAL IV PRN (21:31)
[2022-11-07] MEDS ORDERED: FENTANYL CITR 100 MCG/2 ML IV PRN (21:31)
[2022-11-07] MEDS ORDERED: HYDRALAZINE HCL 20 MG/ML VIAL IV PRN (21:31)
[2022-11-07] MEDS: METRONIDAZOLE 500mg IVPB 500 MG/100 ML BAG IV SCH (22:27)
[2022-11-07] MEDS: NA CHLORIDE 0.9% 1,000 ML IV SCH (22:27)
[2022-11-07 22:40] VITALS: BMI 27.1
[2022-11-08] MEDS: CEFEPIME 1 GM in NA CHLORIDE 0.9% 100 ML IV SCH ×2 (00:56→08:19)
[2022-11-08 03:31] LABS: Absolute Lymphocytes (CBC) 1.3 K/uL (0.7-4.9); Hematocrit 35.7 % (36.0-45.0); Lymphocytes % 21.4 % (15.3-44.8); MCV 93.5 fL (80-100); MPV 9.1 fL (7.6-11.3); Platelets 180 thou/uL (152-406); RBC Red Blood Cell Count 3.82 M/uL (3.86-4.86)
[2022-11-08 03:39] LABS: Magnesium 2.2 mg/dL (1.6-2.4); Potassium 3.7 mEq/L (3.5-5.1)
[2022-11-08] MEDS ORDERED: INFLUENZA VACCINE (for 6+ mo) 0.5 ML DOSE IMVAC ONE (08:00)
[2022-11-08] MEDS: METRONIDAZOLE 500mg IVPB 500 MG/100 ML BAG IV SCH (08:19)
[2022-11-08] MEDS ORDERED: LOSARTAN POTASSIUM 50 MG TABLET PO SCH (09:00)
[2022-11-08] MEDS ORDERED: GABAPENTIN 300 MG CAP PO SCH (09:00)
[2022-11-08] MEDS ORDERED: AMLODIPINE 10 MG TAB PO SCH (09:00)
[2022-11-08] MEDS ORDERED: atenoloL 50 MG TAB PO SCH (09:00)
[2022-11-08] MEDS ORDERED: MONTELUKAST 10 MG TAB PO SCH (09:00)
--- NOTE | 2022-11-08 09:31 | P.CNS ---
Date of Consult: 11/08/22 Reason for Consult: Hyponatremia Requesting Physician: jenifer wisdom Primary Care Provider: Dr. Martin Chief Complaint: Abdominal pain History of Present Illness: 87-year-old female with a past medical history of hypertension, hypothyroidism, brain aneurysm, chronic pain, anxiety presents to the emergency room with abdominal pain. She reports abdominal pain started 3 weeks ago, does not radiate. She reports associated nausea and diarrhea. She reports being seen by PCP 2 weeks ago, nothing was ordered. She was told to go to the emergency room if symptoms are worse. She denies chest pain, vomiting, bloody stools, fever, shortness of breath. Vital signs2 BP 148 / 74; Pulse 54; Resp 18; Temp 97.8; Pulse Ox 96% on R/A; plan to admit for diverticulitis without perforation or bleeding., Hyponatremia. Laboratory evaluation sodium 124 BUN 13 creatinine normal 0.56, estimated GFR 87, CBC unremarkable hypoalbumin 3.3, UA normal. CT of the abdomen pelvis Findings suggestive of early acute proximal to mid sigmoid diverticulitis. 16:20 This 87 yrs old Female presents to ER via Ambulatory with complaints of Doesn't Feel kb Right. 16:20 The patient presents with abdominal pain in the upper abdomen. Onset: The kb symptoms/episode began/occurred 3 week(s) ago. The symptoms do not radiate. Associated signs and symptoms: Pertinent positives: diarrhea, nausea. The symptoms are described as constant. Modifying factors: The symptoms are alleviated by nothing, the symptoms are aggravated by nothing. Severity of pain: At its worst the pain was moderate in the emergency department the pain is unchanged. The patient has not experienced similar symptoms in the past. The patient has been recently seen by a physician: the patient's primary care provider, 2 week(s) ago, with similar presenting complaints, and was sent to the [facility] Emergency Department for further evaluation. Pt reports upper abd pain with nausea for about 3 weeks. States she had azalia rrhea last night so she thought it was time to come get evaluated. Reports she saw Dr Martin in the office 2 weeks ago, told him about the pain and was told to come to the ER then, but didn't want to come at that time. She reports occasional ibuprofen for left hip and LLE pain. She reports incomplete emptying of her bladder with a history of a bladder prolapse and bladder suspension X2. She admits to intermittent edema. Allergies phenytoin sodium [From Dilantin] Allergy (Verified 12/02/17 10:19) Anaphylaxis phenytoin sodium extended [From Dilantin] Allergy (Verified 12/02/17 10:19) Anaphylaxis Home medications list reviewed: Yes Home Medications: Gabapentin 300 mg PO DAILY 08/13/18 Montelukast [Singulair*] 10 mg PO DAILY 08/13/18 atenoloL [Tenormin*] 50 mg PO DAILY 08/13/18 Amlodipine [Norvasc*] 10 mg PO DAILY #30 tab 04/28/22 Losartan Potassium [Cozaar*] 50 mg PO BID #60 tablet 04/28/22 Aspirin [Aspirin EC 81 MG] 81 mg PO DAILY 11/07/22 Levothyroxine [Synthroid*] 50 mcg PO DAILY 11/07/22 Timolol Maleate/Pf [Timolol Maleate 0.5% Eye Drop] 1 each OP Q12HR 11/07/22 Amox/Clavulanate [Augmentin 875-125 Tab] 1 each PO BID #10 tab 11/08/22 Famotidine [Pepcid] 20 mg PO BID #60 tab 11/08/22 metroNIDAZOLE [Flagyl] 500 mg PO Q8H #15 tab 11/08/22 - Past Medical/Surgical History Diabetic: No -: Brain aneurysm -: Hypothyroidism -: COPD -: History of ruptured brain aneurysm -: Hysterectomy -: Tonsillectomy -: Bilateral knee surgery -: Cystocele/rectocele -: R frontal crainiotomy with clipping of aneursym 1981 Psychosocial/ Personal History: She is . Her is currently in the [facility] due to dementia. She has 2 children. 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 - Family History Mother Medical History: Hypertension - Social History Smoking Status: Never smoker Alcohol use: Yes CD- Drugs: No Caffeine use: Yes Place of Residence: Home Review of Systems 10-point ROS is otherwise unremarkable Musculoskeletal: Leg Pain Physical Examination Temp Pulse Resp BP Pulse Ox 97.3 F 67 16 155/62 H 94 11/08/22 08:00 11/08/22 08:00 11/08/22 08:00 11/08/22 08:00 11/08/22 08:00 General: In no apparent distress, Oriented x3, Cooperative HEENT: Atraumatic Neck: Supple Respiratory: Clear to auscultation bilaterally Cardiovascular: No edema Gastrointestinal: Soft and benign, Non-distended Musculoskeletal: No clubbing, No contractures Integumentary: No rashes Neurological: Normal speech Laboratory Data (last 24 hrs) 11/07/22 11/07/22 17:33 17:33 WBC 7.20 Hgb 13.2 Hct 38.2 Plt Count 177 Sodium 124 L Potassium 4.0 BUN 13 Creatinine 0.56 Glucose 93 Total Bilirubin 1.0 AST 17 ALT 18 Alkaline Phosphatase 67 Lipase 36 Imagings Data: EXAM DESCRIPTION: CT - Abdomen Pelvis W Contrast - 11/07/2022 6:39 pm CLINICAL HISTORY: ABD PAIN COMPARISON: No comparisons TECHNIQUE: Thin cut axial CT imaging of the abdomen and pelvis was performed following intravenous administration of 100 mL Isovue 300. Multiplanar reformats were generated and reviewed. All CT scans are performed using dose optimization technique as appropriate and may include automated exposure control or mA/KV adjustment according to patient size. FINDINGS: No suspicious findings in the lung bases. The liver, spleen, and pancreas show no suspicious findings. Gallbladder and biliary tree are also without suspicious finding. Symmetric renal function is seen with no hydronephrosis or suspicious renal mass. No dilated bowel loops. Focal proximal to mid sigmoid colon wall thickening with mild adjacent fat stranding extending posteriorly, see axial image 47 series 201. No free air, free fluid or fluid collections. No hernia, mass or bulky lymphadenopathy. The urinary bladder is without significant finding. No suspicious bony findings. Left hip prosthesis with cerclage wires. IMPRESSION: Findings suggestive of early acute proximal to mid sigmoid diverticulitis. EXAM DESCRIPTION: US - Abdomen Exam Limited - 11/07/2022 5:52 pm CLINICAL HISTORY: ABD PAIN COMPARISON: Renal Ultrasound-Complete dated 10/16/2021 TECHNIQUE: Sonographic grayscale and color flow images of the right upper abdominal quadrant were obtained. FINDINGS: The gallbladder demonstrates no gallstones. Small fold is seen near the neck. No pericholecystic fluid or gallbladder wall thickening. The common bile duct is normal measuring 5 mm. The liver demonstrates no findings of intrahepatic biliary dilatation. IMPRESSION: No sonographic abnormality of the gallbladder or biliary tract. Conclusions/Impression: Hypovolemic Hyponatremia -Continue IVF with NS HTN -Continue Atenolol -Continue Losartan and Amlodipine GERD -Continue Pepcid Hospitalist and ER notes reviewed Case reviewed with Dr. Wisdom Thank you kindly for the consultation
[2022-11-08 10:42] VITALS: O2SAT 94
[2022-11-08] MEDS: NA CHLORIDE 0.9% 1,000 ML IV SCH (10:51)
--- NOTE | 2022-11-08 11:05 | P.DS ---
Admission Date: 11/07/22 Discharge Date: 11/08/22 Primary Care Provider: Dr. Martin Disposition: ROUTINE DISCHARGE Discharge Condition: FAIR Reason for Admission: Abdominal pain - Problems (1) Diverticulitis Current Visit: Yes Status: Acute (2) Hyponatremia Current Visit: Yes Status: Acute (3) Hypertension Current Visit: No Status: Chronic Qualifiers: Hypertension type: primary hypertension Qualified Code(s): I10 - Essential (primary) hypertension (4) Hypothyroidism Current Visit: No Status: Chronic Qualifiers: Hypothyroidism type: unspecified Qualified Code(s): E03.9 - Hypothyroidism, unspecified Brief History of Present Illness: 87-year-old female with a past medical history of hypertension, hypothyroidism, brain aneurysm, chronic pain, anxiety presented to the emergency room with abdominal pain. She reports abdominal pain started 3 weeks ago, does not radiate. She reports associated nausea and diarrhea. She reports being seen by PCP 2 weeks ago, nothing was ordered. She was told to go to the emergency room if symptoms are worse. She denied chest pain, vomiting, bloody stools, fever, or shortness of breath. Laboratory evaluation sodium 124 BUN 13 creatinine normal 0.56, estimated GFR 87, CBC unremarkable hypoalbumin 3.3, UA normal. CT of the abdomen pelvis Findings suggestive of early acute proximal to mid sigmoid diverticulitis. Patient was hospitalized for further management. Hospital Course: Patient was treated with IV cefepime and Flagyl. She was asymptomatic during the hospital stay. Vitals were stable. Patient tolerated diet. She is deemed stable for discharge to continue treatment for early diverticulitis with oral antibiotics. She had hyponatremia which significantly improved with IV hydration. Vital Signs/Physical Exam: Temp Pulse Resp BP Pulse Ox 97.3 F 67 16 155/62 H 94 11/08/22 08:00 11/08/22 08:00 11/08/22 08:00 11/08/22 08:00 11/08/22 08:00 General: Alert, In no apparent distress, Oriented x3 HEENT: Mucous membr. moist/pink Neck: JVD not distended Respiratory: Clear to auscultation bilaterally, Normal air movement Cardiovascular: No edema, Regular rate/rhythm, Normal S1 S2 Gastrointestinal: Normal bowel sounds, Soft and benign, Non-distended, No tenderness Musculoskeletal: No clubbing, No warmth Integumentary: No rashes, No cyanosis Neurological: Normal strength at 5/5 x4 extr Laboratory Data at Discharge: WBC 6.20 thou/uL (4.3-10.9) 11/08/22 01:57 Hgb 12.4 g/dL (12.0-15.0) 11/08/22 01:57 Hct 35.7 % (36.0-45.0) L 11/08/22 01:57 Plt Count 180 thou/uL (152-406) 11/08/22 01:57 Sodium 133 mEq/L (136-145) L D 11/08/22 01:57 Potassium 3.7 mEq/L (3.5-5.1) 11/08/22 01:57 BUN 10 mg/dL (7-18) 11/08/22 01:57 Creatinine 0.49 mg/dL (0.55-1.02) L 11/08/22 01:57 Glucose 85 mg/dL (74-106) 11/08/22 01:57 Magnesium 2.2 mg/dL (1.6-2.4) 11/08/22 01:57 Total Bilirubin 1.0 mg/dL (0.2-1.0) 11/07/22 17:33 AST 17 U/L (15-37) 11/07/22 17:33 ALT 18 U/L (13-56) 11/07/22 17:33 Alkaline Phosphatase 67 U/L (45-117) 11/07/22 17:33 Lipase 36 U/L (13-75) 11/07/22 17:33 Home Medications: Gabapentin 300 mg PO DAILY 08/13/18 Montelukast [Singulair*] 10 mg PO DAILY 08/13/18 atenoloL [Tenormin*] 50 mg PO DAILY 08/13/18 Amlodipine [Norvasc*] 10 mg PO DAILY #30 tab 04/28/22 Losartan Potassium [Cozaar*] 50 mg PO BID #60 tablet 04/28/22 Aspirin [Aspirin EC 81 MG] 81 mg PO DAILY 11/07/22 Levothyroxine [Synthroid*] 50 mcg PO DAILY 11/07/22 Timolol Maleate/Pf [Timolol Maleate 0.5% Eye Drop] 1 each OP Q12HR 11/07/22 Ciprofloxacin HCl [Cipro] 500 mg PO BID #10 tab 11/08/22 metroNIDAZOLE [Flagyl] 500 mg PO Q8H #15 tab 11/08/22 New Medications: Ciprofloxacin HCl [Cipro] 500 mg PO BID #10 tab metroNIDAZOLE [Flagyl] 500 mg PO Q8H #15 tab Diet: AHA Activity: Ad rolando Followup: Fercho Martin MD [Primary Care Provider] - 1-2 Weeks Time spent managing pt's care (in minutes): 26
[2022-11-08 16:20] VITALS: BP 120/64; TEMP 97
== END 2022-11-08 18:03 | disposition home or self-care (01) ==
LOC: ER 15:37 → INTOOBSV 19:54 → ERHOLD 19:54 → 2ND 20:43
PROVIDERS: ADMIT Internal Medicine; ATTEND Internal Medicine
DX: K57.32 Diverticulitis of large intestine without perforation or abscess without bleeding (principal); E87.1 Hypo-osmolality and hyponatremia; E86.1 Hypovolemia; K21.9 Gastro-esophageal reflux disease without esophagitis; I10 Essential (primary) hypertension; E03.9 Hypothyroidism, unspecified; F41.9 Anxiety disorder, unspecified; G89.29 Other chronic pain; I72.9 Aneurysm of unspecified site; Z88.8 Allergy status to other drugs, medicaments and biological substances; Z23 Encounter for immunization
CPT/HCPCS: 36415; 74177; 76705; 80048; 80053; 81003; 83690; 83735; 83930; 85025; 90471; 96365; 99285; G0378; J0692; J0744; J7030; Q2035; Q9967